=== PATIENT | female | born 1945 | race Caucasian/White ===

== ENCOUNTER → 2024-05-15 | Outpatient (CLI) | payer MEDICARE, SELFPAY ==
--- NOTE | 2024-05-15 08:00 | CDU_ITS ---
Reason For Study: Retinal Ischemia Rt. Velocities/BP Lt. Velocities/BP Prox CCA 57.9/7.8 cm/sec. Prox CCA 75.3/16.3 cm/sec. Mid CCA 60.7/9.7 cm/sec. Mid CCA 63.0/17.6 cm/sec. Dist CCA 64.5/8.8 cm/sec. Dist CCA 55.6/11.4 cm/sec. Prox ICA 42.2/15.9 cm/sec. Prox ICA 43.9/14.2 cm/sec. Mid ICA 60.6/16.5 cm/sec. Mid ICA 56.1/21.2 cm/sec. Dist ICA 63.0/20.0 cm/sec. Dist ICA 53.8/18.5 cm/sec. Rt. ICA/CCA = 1.0. Lt. ICA/CCA = 0.9. Prox ECA 54.1/6.0 cm/sec. Prox ECA 87.6/9.0 cm/sec. Rt. Vert. 47.0/9.0 cm/sec. Lt. Vert. 42.1/13.3 cm/sec. Right Extracranial There is heterogeneous, smooth atherosclerotic plaque noted in the right common carotid artery. There is homogeneous, smooth atherosclerotic plaque noted in the right internal carotid artery. There is heterogeneous, irregular atherosclerotic plaque noted in the right external carotid artery. Antegrade flow is noted in the right vertebral artery. Left Extracranial There is homogeneous, smooth atherosclerotic plaque noted in the left common carotid artery. There is homogeneous, smooth atherosclerotic plaque noted in the left internal carotid artery. There is heterogeneous, irregular atherosclerotic plaque noted in the left external carotid artery. Antegrade flow is noted in the left vertebral artery. Procedure Carotid Duplex [id number]. This is a Carotid Duplex examination using B-mode, color flow and specral Doppler. Exam performed in department. VL/Carotid Duplex Ultrasound Interpretation Summary Mild (<50%) stenosis right extracranial internal carotid. Mild (<50%) stenosis left extracranial internal carotid. Patent and antegrade vertebrals bilaterally. Ordering Physician: Dre Billingsley Referring Physician: Serena King M.D. Performed By: Nathalia Alan RVT and Student
== END | disposition home or self-care (01) ==
PROVIDERS: Referring Provider Ophthalmology; Visit Provider Ophthalmology
DX: H35.82 Retinal ischemia (principal)
CPT/HCPCS: 93880

== ENCOUNTER → 2024-08-29 | Outpatient (CLI) | payer MEDICARE, SELFPAY ==
--- NOTE | 2024-08-29 11:14 | RAD_ITS ---
PROCEDURE: 08/29/2024 REASON FOR EXAM: KNEE PAIN TECHNIQUE: 4 view(s) of the left knee COMPARISON: None. FINDINGS: Moderate narrowing seen within the medial compartment of the left knee with near [id number] contact. Subchondral sclerosis is seen. Mild narrowing seen within the lateral compartment. Osseous structures are in anatomic alignment. No fracture or dislocation is seen. No suprapatellar joint effusion. RAD/Knee 4 or More Views IMPRESSION: Left knee osteoarthritis, worse within the medial compartment. No fracture or dislocation. No joint effusion. Reading Location: [facility]
== END | disposition home or self-care (01) ==
LOC: MTRAD 11:12
PROVIDERS: PCP Family Medicine
DX: M25.562 Pain in left knee (principal)
CPT/HCPCS: 73564

== ENCOUNTER → 2025-01-04 | Outpatient (CLI) | payer MEDICARE, SELFPAY ==
--- NOTE | 2025-01-04 10:13 | RAD_ITS ---
PROCEDURE: CERV SPINE 4 OR 5 VIEWS 01/04/2025 REASON FOR EXAM: NECK PAIN TECHNIQUE: [facility] Procedure: CERV SPINE 4 OR 5 VIEWS COMPARISON: None. FINDINGS: There is no evidence of fracture or subluxation. There is loss of the normal cervical lordosis. There is degenerative disc disease C4-5, C5-6 and C6-7 with narrowing of the intervertebral disc spaces and marginal osteophytes. There is multilevel facet arthropathy. There is degenerative grade 1 anterolisthesis of C3 on C4. The perivertebral soft tissues are normal. RAD/Cerv Spine 4 or 5 Views IMPRESSION: 1. Multilevel degenerative disc disease with cervical spasm. 2. Degenerative anterolisthesis, C3 on C4. Reading Location: [place] [id number]
--- NOTE | 2025-01-04 10:13 | RAD_ITS ---
PROCEDURE: LUMBAR SPINE 2 OR 3 VIEWS 01/04/2025 REASON FOR EXAM: LOW BACK PAIN TECHNIQUE: Procedure Code: [facility]SPLL Modality: DX Procedure: LUMBAR SPINE 2 OR 3 VIEWS COMPARISON: NONE. FINDINGS: BONES: Five exw-uzs-sebnwui lumbar vertebral bodies. Mild anterior wedge compression deformity of the L1 vertebral body. No focal osseous lesion. Anatomic spinal alignment. DISC/DEGENERATIVE CHANGES: Disc spaces are preserved. SOFT TISSUES: Moderate colonic stool. RAD/Lumbar Spine 2 or 3 Views IMPRESSION: L1 vertebral body compression deformity, age indeterminate. If clinically lefty cated, a follow-up CT or MRI is suggested to further evaluate. Reading Location: [id number]
[2025-01-04 12:26] LABS: Hematocrit 47.1 % (37-47); Hemoglobin 16.3 g/dL (12.0-15.0); Immature Granulocytes Count 0.020 X10^3/uL (0.0-0.0); Mean Corp Hgb Conc 34.6 g/dL (32-36); Mean Corpuscular Volume 96.7 fL (81-99); Mean Platelet Vol. 11.3 fl (6.2-12.0); NRBC Flagged by Analyzer 0 % (0-5); POSITIVE COUNT YES; RBC Distribution Width CV 12.2 % (11.6-14.6); RBC Distribution Width SD 43.6 fl (35.1-43.9); Red Blood Count 4.87 M/mm3 (4.2-5.4); White Blood Count 8.3 K/mm3 (4.4-11.0)
[2025-01-04 13:24] LABS: Cholesterol 196 mg/dL (<=200); Ferritin 207 ng/mL (22-378); Low Density Lipoprotein Calc. 102 mg/dL; Triglycerides 138 mg/dL; Very Low Density Lipoprotein 28 mg/dL (5-40); Vitamin D,25 Hydroxy 65.6 ng/mL (30-100); cholesterol:hdl ratio screen 2.96
[2025-01-04 13:39] LABS: Iron 171 ug/dL (50-170)
[2025-01-04 13:43] LABS: AST(SGOT) 30 U/L (<=31); Alanine Aminotransfer ALT/SGPT 20 U/L (<=34); Albumin, Serum 4.3 g/dL (3.4-4.8); Alkaline Phosphatase 81 U/L (35-104); Anion Gap 14 (5-15); BUN 12 mg/dL (4-19); BUN/Creat Ratio 12.2 RATIO (10-20); Calcium,Total 10.3 mg/dL (7.6-11.0); Carbon Dioxide 23.7 mmol/L (21.0-32.0); Chloride 103 mmol/L (98-108); Globulin 2.6 g/dL (2.2-4.2); Glucose 92 mg/dL (70-99); Potassium 4.3 mmol/L (3.3-5.1)
[2025-01-04 14:02] LABS: Differential Indicated SCAN CRITERIA MET
== END | disposition home or self-care (01) ==
LOC: MTRAD 10:13
PROVIDERS: PCP Family Medicine; Referring Provider Family Medicine; Visit Provider Family Medicine
DX: D80.1 Nonfamilial hypogammaglobulinemia (principal); N18.30 Chronic kidney disease, stage 3 unspecified; Z13.220 Encounter for screening for lipoid disorders; E83.110 Hereditary hemochromatosis; M81.0 Age-related osteoporosis without current pathological fracture
CPT/HCPCS: 36415; 72050; 72100; 80053; 80061; 82306; 82728; 83540; 85025

== ENCOUNTER → 2025-01-18 | Outpatient (CLI) | payer MEDICARE, SELFPAY ==
--- OUTSIDE RECORDS SUMMARY | 2025-01-18 07:12 | XMS RPT_ITS | CCD ---
Author Organization [facility] Care Team Providers Care Director Search Marketing Strategies Name Role Phone Town Doctor, Out of Primary Care Provider José Miguel Billingsley MD, Dr. Erickson Attending Provider Analilia PINA, Dr. Erickson Referring Provider Hira PINA, Dr. Tavarez Attending Provider Hugo PINA, Jelena Primary Care Provider Brandon OBSTETRICIAN/GYNECOLOGIST-C, Sera Attending Provider [phone] Brandon OBSTETRICIAN/GYNECOLOGIST-C, Sera Referring Provider Will Cheng Attending Unavailable Will Cheng Referring Unavailable Hugo, Chalon Primary Care Unavailable Hugo, Jelena Attending Unavailable Hugo, Chalon Referring Unavailable Hugo, Chalon Primary Care Unavailable Hugo, Chalon Attending Unavailable Hugo, Chalon Referring Unavailable Hugo, Chalon Primary Care Unavailable Chenevey, Dre Referring Unavailable Town Doctor, Out of Primary Care Unavailable Corby Iniguez Attending Unavailable Hugo, Chalon Primary Care Unavailable Brandon OBSTETRICIAN/GYNECOLOGIST, Sera Attending Unavailable Brandon OBSTETRICIAN/GYNECOLOGIST, Sera Referring Unavailable Chenevey, Dre Attending Unavailable Chenevey, Dre Referring Unavailable Town Doctor, Out of Primary Care Unavailable Hugo, Chalon Referring Unavailable Hugo, Chalon Primary Care Unavailable Lisa Hummel Attending Unavailable Will Cheng Attending Unavailable Hugo, Chalon Referring Unavailable Hugo, Chalon Primary Care Unavailable Allergies Allergy Classification Reported Allergen(s) Allergy Type Date of Onset Reaction(s) Facility (1 source) Penicillin Drug Allergy 01-15-2025 [facility] Repository Medications Current Medications Medication Drug Class(es) Dates Sig (Normalized) Sig (Original) FLUoxetine 20 mg oral capsule (1 source) Serotonin Reuptake Inhibitor Start: 12-01-2014 take 1 capsule by mouth once daily Fluoxetine 20 MG capsule Active 20 mg PO DAILY December 01, 2014 12:00am Problems Problem Classification Problem Date Documented Da te Episodic/Chronic Immunity disorders (1 source) Nonfamilial hypogammaglobulinem ia; Translations: [Nonfamilial hypogammaglobulinem ia] Onset: 01-12-2025 Chronic Osteoporosis (1 source) Age-related osteoporosis without current pathological fracture; Translations: [Age-related osteoporosis without current pathological fracture] Onset: 01-15-2025 Chronic Other non-traumatic joint disorders (2 sources) Pain in left knee; Translations: [Pain in left knee] Onset: 09-05-2024 Episodic Retinal detachments; defects; vascular occlusion; and retinopathy (1 source) Retinal ischemia; Translations: [Retinal ischemia] Onset: 06-02-2024 Chronic Results Test Name Value Interpretation Reference Range Facil ity Orthopedic Visit Reporton Orthopedic Visit Report [facility] [address] [place] [address] OFFICE VISIT Date of Service: 01/15/25 MR#: [id number] Acct: [id number] Name: BRYCE GENTILE Rep #: [id number] : 1945 Provider: Dr. Will moreno DO Age/Sex: 79/F Location: [facility] Status: Signed Intake Vital Signs 12/01/14 13:55 01/15/25 08:20 Height 5 ft 3 in 5 ft 3 in Weight: 191 lb 6 oz BMI 33.9 Intake Visit Reasons: LEFT KNEE Accompanied by: Is patient in pain?: Yes Pain scale (1-10): 5 Allergies penicillin Allergy (Verified 01/15/25 08:22) Rash Medications ???Medication ???Instructions ???Recorded ???Confirmed ???Type alendronate 35 mg tablet 35 mg PO QWEEK 01/15/25 01/15/25 H istory escitalopram oxalate 20 mg tablet 20 mg PO QDAY 01/15/25 01/15/25 H istory Have you fallen in the past year?: No PFSH Surgical History (Updated 01/15/25 @ 08:24 by Erin Ch) History of nasal surgery History of tubal ligation History of cataract removal with insertion of prosthetic lens History of appendectomy History of right knee joint replacement Social History (Updated 01/15/25 @ 08:25 by Erin Ch) Smoking Status: Never smoker alcohol intake: current alcohol intake frequency: a few times a week HPI LEFT KNEE Details: This documentation accurately reflects the service provided and the decisions made by me, Dr. Will Cheng, DO 01/15/25 0749. Part of today???s visit was documented by Regina CRUZ, acting as scribe. BRYCE GENTILE is a 79 year old F new patient here today for left knee pain that she has been having since August. She did get a steroid injection from her PCP in October that gave her some minimal relief for a few weeks. She denies any known injury and denies any previous surgery to this knee. Her pain is anterior medial. When the pain initially started she woke up with her right leg on the left leg then later on that morning she went to walk down some steps and felt a painful pop in the knee. She feels that their is no stability in the knee and has to be very mindful of how she walks. She denies painful mechanical symptoms since. She does get shooting pain through the anterior medial compartment. At night if she tried to lift up her leg she gets increased pain in the knee. She did have xrays of the knee on 08/29/24. She does take Advil for the pain as needed. She denies doing PT. She does have 2 knee braces at home but neither of them help with the pain or stability. Walking on uneven ground she feels very unstable on the knee. she states it feels like when she tore her meniscus in her other knee prior to her knee replacement. Ortho Exam General General: Yes no acute distress and Yes well groomed Neurologic: Yes alert and Yes oriented x3 Psychologic: Yes reasonable and appropriate Left Knee Knee ROM: Yes ROM-Extension -20 to 0 (-8) and Yes ROM-Flexion 0-140 (108) Examination: Yes med jt line tenderness, Yes Lat jt line tenderness and No TTP Pes Anserine Stability: NML: Anterior Drawer, NML: Posterior Drawer, NML: Valgus 30 and NML: Varus 30 Patella Grind: Yes KNEE: no effusion medial click with lateral gillian pain with medial gillian Supplemental Info 08/29/2024 x-ray left knee: Degenerative changes moderate medial and patellofemoral with spurring and joint space narrowing Coding Level of Care Code Off vis,new,level 3 Diagnoses Other instability, left knee M25.362 Primary osteoarthritis of left knee M17.12 Osteoarthritis type: primary Assessment and Plan Assessment and Plan (1) Other instability, left knee: Status: Acute (2) Left knee DJD: Status: Acute Qualifiers: Osteoarthritis type: primary Qualified Code(s): M17.12 - Unilateral primary osteoarthritis, left knee Orders: Orders Lower Ext Joint Only (Routine) Today M25.562 - Pain in left knee Plan Patient is here today for left knee pain. I did review xrays from August today with patient and advised her that she does have some mild arthritis with some spurring and likely has a degenerative tear of her medial meniscus. I spoke with patient that for this we typically treat it by anti-inflammatories and a steroid injection. Another option would be to get an MRI then decide if we would want to go in arthroscopically or talk about knee replacement. patient wishes to proceed with an MRI. Follow up after MRI or sooner if pain, swelling, numbness or associated symptoms, or concerns develop. All questions answered. Patient in agreement of plan. Clinical Quality Measures Falls Risk Screening/Assistive Devices Have you fallen in the past year?: No 01/15/25 0953 Date Will Lynne Signature: Date (more content not included)... Normal [facility] CBC W/Diff, Automatedon 12-25 PLT EST ADEQUATE Normal ADEQ [facility] Comment on above: Performed By: #### L 500.4100, L503.6550, L503.6150, L506.1001, L100.0100, L500.4050 #### [facility] [address] [place], [place], [address] Cerv Spine 4 or 5 Viewson Cerv Spine 4 or 5 Views [facility] Imaging Services [address] [place], [place] [address] Cerv Spine 4 or 5 Views MR#: [id number] Acct: [id number] Name: BRYCE GENTILE Rep #: [id number] : 1945 F 79 From: Luis Sanders MD PCP: Dr. Jelena Arias MD Status: REG CLI Study: Cerv Spine 4 or 5 Views Date of Exam: 01/04/25 Exam# [id number] Ordering Dr: Jelena Arias MD PROCEDURE: CERV SPINE 4 OR 5 VIEWS 01/04/2025 REASON FOR EXAM: NECK PAIN TECHNIQUE: Procedure Code: RADSPC Modality: DX Procedure: CERV SPINE 4 OR 5 VIEWS COMPARISON: None. FINDINGS: There is no evidence of fracture or subluxation. There is loss of the normal cervical lordosis. There is degenerative disc disease C4-5, C5-6 and C6-7 with narrowing of the intervertebral disc spaces and marginal osteophytes. There is multilevel facet arthropathy. There is degenerative grade 1 anterolisthesis of C3 on C4. The perivertebral soft tissues are normal. RAD/Cerv Spine 4 or 5 Views IMPRESSION: 1. Multilevel degenerative disc disease with cervical spasm. 2. Degenerative anterolisthesis, C3 on C4. Reading Location: [place] [address] CC: Dr. Jelena Arias MD Project Production Engineer: Signed Normal [facility] Comprehensive Metabolic Prof ilon 01-04-2025 Albumin [Mass/Vol] 4.3 g/dL Normal 3.4-4.8 [facility] Comment on above: Performed By: #### L 500.4100, L503.6550, L503.6150, L506.1001, L100.0100, L500.4050 #### [facility] [address] [place], [address] Albumin/Globulin [Mass ratio] 1.6 {ratio} Normal 0.9-2.4 [facility] Comment on above: Performed By: #### L 500.4100, L503.6550, L503.6150, L506.1001, L100.0100, L500.4050 #### [facility] [address] [place], [address] ALK PHOS 81 U/L Normal 35-104 [facility] Comment on above: Performed By: #### L 500.4100, L503.6550, L503.6150, L506.1001, L100.0100, L500.4050 #### [facility] [address] [place], [address] ALT [Catalytic activity/Vol] 20 U/L Normal <=34 [facility] Comment on above: Performed By: #### L 500.4100, L503.6550, L503.6150, L506.1001, L100.0100, L500.4050 #### [facility] [address] [place], [address] AST [Catalytic activity/Vol] 30 U/L Normal <=31 [facility] Comment on above: Result Comment: Hemo lysis present, Results??could be affected. ?? Performed By: #### L 500.4100, L503.6550, L503.6150, L506.1001, L100.0100, L500.4050 #### [facility] [address] [place], [address] Bilirubin [Mass/Vol] 0.82 mg/dL Normal 0.00-1.30 [facility] Comment on above: Performed By: #### L 500.4100, L503.6550, L503.6150, L506.1001, L100.0100, L500.4050 #### [facility] [address] [place], [address] BUN/CRE 12.2 RATIO Normal 10-20 [facility] Comment on above: Performed By: #### L 500.4100, L503.6550, L503.6150, L506.1001, L100.0100, L500.4050 #### [facility] [address] [place], [address] Calcium [Mass/Vol] 10.3 mg/dL Normal 7.6-11.0 [facility] Comment on above: Performed By: #### L 500.4100, L503.6550, L503.6150, L506.1001, L100.0100, L500.4050 #### [facility] [address] [place], [address] Chloride [Moles/Vol] 103 mmol/L Normal 98-108 [facility] Comment on above: Performed By: #### L 500.4100, L503.6550, L503.6150, L506.1001, L100.0100, L500.4050 #### [facility] [address] [place], [address] CO2 [Moles/Vol] 23.7 mmol/L Normal 21.0-32.0 [facility] Comment on above: Performed By: #### L 500.4100, L503.6550, L503.6150, L506.1001, L100.0100, L500.4050 #### [facility] [address] [place], [address] Creatinine [Mass/Vol] 1.00 mg/dL Normal 0.70-1.20 [facility] Comment on above: Performed By: #### L 500.4100, L503.6550, L503.6150, L506.1001, L100.0100, L500.4050 #### [facility] [address] [place], [address] GAP 14 Normal 5-15 [facility] Comment on above: Performed By: #### L 500.4100, L503.6550, L503.6150, L506.1001, L100.0100, L500.4050 #### [facility] [address] [place], [address] GFR/1.73 sq M.predicted among non-blacks MDRD (S/P/Bld) [Vol rate/Area] 58 mL/min/{1.73_m2} Low >60 [facility] Comment on above: Result Comment: mL/m in/1.73m2 CKD-EPI Creatinine Equation (2020) Performed By: #### L 500.4100, L503.6550, L503.6150, L506.1001, L100.0100, L500.4050 #### [facility] [address] [place], [address] Globulin (S) [Mass/Vol] 2.6 g/dL Normal 2.2-4.2 [facility] Comment on above: Performed By: #### L 500.4100, L503.6550, L503.6150, L506.1001, L100.0100, L500.4050 #### [facility] [address] [place], [address] Glucose [Mass/Vol] 92 mg/dL Normal 70-99 [facility] Comment on above: Performed By: #### L 500.4100, L503.6550, L503.6150, L506.1001, L100.0100, L500.4050 #### [facility] [address] [place], [address] Potassium [Moles/Vol] 4.3 mmol/L Normal 3.3-5.1 [facility] Comment on above: Result Comment: Hemo lysis present, Results??could be affected. ?? Performed By: #### L 500.4100, L503.6550, L503.6150, L506.1001, L100.0100, L500.4050 #### [facility] [address] [place], [address] Sodium [Moles/Vol] 140 mmol/L Normal 133-145 [facility] Comment on above: Performed By: #### L 500.4100, L503.6550, L503.6150, L506.1001, L100.0100, L500.4050 #### [facility] [address] [place], [address] T PROT 6.9 g/dL Normal 5.9-8.4 [facility] Comment on above: Performed By: #### L 500.4100, L503.6550, L503.6150, L506.1001, L100.0100, L500.4050 #### [facility] [address] [place], [address] Urea nitrogen [Mass/Vol] 12 mg/dL Normal 4-19 [facility] Comment on above: Performed By: #### L 500.4100, L503.6550, L503.6150, L506.1001, L100.0100, L500.4050 #### [facility] [address] [place], [address] Ferritinon 01-04-2025 Ferritin [Mass/Vol] 207 ng/mL Normal 22-378 [facility] Comment on above: Performed By: #### L 500.4100, L503.6550, L503.6150, L506.1001, L100.0100, L500.4050 #### [facility] [address] [place], [address] Ironon 01-04-2025 Iron [Mass/Vol] 171 ug/dL High 50-170 [facility] Comment on above: Performed By: #### L 500.4100, L503.6550, L503.6150, L506.1001, L100.0100, L500.4050 #### [facility] [address] [place], [address] Lipid Profileon 01-04-2025 CHOL:HDL 2.96 Normal [facility] Comment on above: Performed By: #### L 500.4100, L503.6550, L503.6150, L506.1001, L100.0100, L500.4050 #### [facility] [address] [place], [address] Cholesterol [Mass/Vol] 196 mg/dL Normal <=200 [facility] Comment on above: Result Comment: Chol esterol level, Desirable <200 mg/dL Borderline high cholesterol 200-239 mg/dL High cholesterol >=240 mg/dL Recommendations of the NCEP Adult Treatment Panel for the following risk-cutoff thresholds for the [place] population. Performed By: #### L 500.4100, L503.6550, L503.6150, L506.1001, L100.0100, L500.4050 #### [facility] [address] [place], [address] Cholesterol in HDL [Mass/Vol] 66 mg/dL Normal [facility] Comment on above: Result Comment: Angie onal Cholesterol Education Program (NCEP) guidelines: <40 mg/dL: Low HDL-cholesterol (major risk factor for CHD) >= 60 mg/dL: High HDL-cholesterol (negative risk factor for CHD) HDL-cholesterol is affected by a number of factors, e.g. smoking, exercise, hormones, sex and age. Performed By: #### L 500.4100, L503.6550, L503.6150, L506.1001, L100.0100, L500.4050 #### [facility] [address] [place], [address] Cholesterol in LDL [Mass/Vol] 102 mg/dL Normal [facility] Comment on above: Result Comment: Bord qzheoc=926-006 mg/dL Higher Xkxq=631 mg/dL or greater Friedwald Equation for LDL-C Performed By: #### L 500.4100, L503.6550, L503.6150, L506.1001, L100.0100, L500.4050 #### [facility] [address] [place], [address] Cholesterol in VLDL [Mass/Vol] 28 mg/dL Normal 5-40 [facility] Comment on above: Performed By: #### L 500.4100, L503.6550, L503.6150, L506.1001, L100.0100, L500.4050 #### [facility] [address] [place], [address] Triglyceride [Mass/Vol] 138 mg/dL Normal [facility] Comment on above: Result Comment: The drugs N-Acetylcysteine and Metamizole may falsely depress this assay. Normal range: <150 mg/dL Borderline High: 150-199 mg/dL High: 200-499 mg/dL Very High: >500 mg/dL Performed By: #### L 500.4100, L503.6550, L503.6150, L506.1001, L100.0100, L500.4050 #### [facility] [address] [place], [address] Lumbar Spine 2 or 3 Viewson 01-04-2025 Lumbar Spine 2 or 3 Views [facility] Imaging Services [address] [place] [address] Lumbar Spine 2 or 3 Views MR#: [id number] Acct: [id number] Name: BRYCE GENTILE Rep #: [id number] : 1945 F 79 From: Medina Hawkins MD PCP: Dr. Jelena Arias MD Status: REG CLI Study: Lumbar Spine 2 or 3 Views Date of Exam: Exam# [id number] Ordering Dr: Jelena Arias MD PROCEDURE: LUMBAR SPINE 2 OR 3 VIEWS 01/04/2025 REASON FOR EXAM: LOW BACK PAIN TECHNIQUE: Procedure Code: RADSPLL Modality: DX Procedure: LUMBAR SPINE 2 OR 3 VIEWS COMPARISON: NONE. FINDINGS: BONES: Five eeb-ccr-jnpxedh lumbar vertebral bodies. Mild anterior wedge compression deformity of the L1 vertebral body. No focal osseous lesion. Anatomic spinal alignment. DISC/DEGENERATIVE CHANGES: Disc spaces are preserved. SOFT TISSUES: Moderate colonic stool. RAD/Lumbar Spine 2 or 3 Views IMPRESSION: L1 vertebral body compression deformity, age indeterminate. If clinically indicated, a follow-up CT or MRI is suggested to further evaluate. Reading Location: [facility] CC: Dr. Jelena Arias MD Project Production Engineer: Signed Normal [facility] Vitamin D,25 Hydroxyon 01-04 Vitamin D 25-OH 65.6 ng/mL Normal 30-100 [facility] Comment on above: Result Comment: Ruthann min D Status Deficiency: <20 ng/mL (50nmol/L) Insufficiency: 20-30 ng/mL (50-75 nmol/L) Sufficiency: 30-100 ng/mL (75-250 nmol/L) Toxicity: >100 ng/mL (>250 nmol/L) Performed By: #### L 500.4100, L503.6550, L503.6150, L506.1001, L100.0100, L500.4050 #### [facility] [address] [facility] [place], [address] Knee 4 or More Viewson 08-29 Knee 4 or More Views [facility] Imaging Services [address] [place] [address] Knee 4 or More Views MR#: [id number] Acct: [id number] Name: BRYCE GENTILE Rep #: [id number] : 1945 F 78 From: Manuel Alegria i, MD PCP: Dr. Jelena Arias MD Status: REG CLI Study: Knee 4 or More Views Date of Exam: 08/29/24 Exam# [id number] Ordering Dr: Sera Taylor NP OBSTETRICIAN/GYNECOLOGIST -C PROCEDURE: 08/29/2024 REASON FOR EXAM: KNEE PAIN TECHNIQUE: 4 view(s) of the left knee COMPARISON: None. FINDINGS: Moderate narrowing seen within the medial compartment of the left knee with near tgzn-id-ufrw contact. Subchondral sclerosis is seen. Mild narrowing seen within the lateral compartment. Osseous structures are in anatomic alignment. No fracture or dislocation is seen. No suprapatellar joint effusion. RAD/Knee 4 or More Views IMPRESSION: Left knee osteoarthritis, worse within the medial compartment. No fracture or dislocation. No joint effusion. Reading Location: [facility] CC: Sera Taylor; Dr. Jelena Arias MD Project Production Engineer: Signed Normal [facility] Carotid Duplex Ultrasoundon 05-15-2024 Carotid Duplex Ultrasound [facility] [address] [place] [address] Carotid Duplex Ultrasound 05/15/24 0803 MR#: [id number] Acct: [id number] Name: BRYCE GENTILE Rep #: [id number] : 1945 78 From: Corby Iniguez MD Attending Dr: Dr. Dre Billingsley MD Status: REG CLI Ordering Dr: Dre Billingsley MD Date: 05/15/24 Location: [facility] Sex: F C Admitted: Reason For Study: Retinal Ischemia Rt. Velocities/BP Lt. Velocities/BP Prox CCA 57.9/7.8 cm/sec. Prox CCA 75.3/16.3 cm/sec. Mid CCA 60.7/9.7 cm/sec. Mid CCA 63.0/17.6 cm/sec. Dist CCA 64.5/8.8 cm/sec. Dist CCA 55.6/11.4 cm/sec. Prox ICA 42.2/15.9 cm/sec. Prox ICA 43.9/14.2 cm/sec. Mid ICA 60.6/16.5 cm/sec. Mid ICA 56.1/21.2 cm/sec. Dist ICA 63.0/20.0 cm/sec. Dist ICA 53.8/18.5 cm/sec. Rt. ICA/CCA = 1.0. Lt. ICA/CCA = 0.9. Prox ECA 54.1/6.0 cm/sec. Prox ECA 87.6/9.0 cm/sec. Rt. Vert. 47.0/9.0 cm/sec. Lt. Vert. 42.1/13.3 cm/sec. Right Extracranial There is heterogeneous, smooth atherosclerotic plaque noted in the right common carotid artery. There is homogeneous, smooth atherosclerotic plaque noted in the right internal carotid artery. There is heterogeneous, irregular atherosclerotic plaque noted in the right external carotid artery. Antegrade flow is noted in the right vertebral artery. Left Extracranial There is homogeneous, smooth atherosclerotic plaque noted in the left common carotid artery. There is homogeneous, smooth atherosclerotic plaque noted in the left internal carotid artery. There is heterogeneous, irregular atherosclerotic plaque noted in the left external carotid artery. Antegrade flow is noted in the left vertebral artery. Procedure Carotid Duplex 24663. This is a Carotid Duplex examination using B-mode, color flow and specral Doppler. Exam performed in department. VL/Carotid Duplex Ultrasound Interpretation Summary Mild (<50%) stenosis right extracranial internal carotid. Mild (<50%) stenosis left extracranial internal carotid. Patent and antegrade vertebrals bilaterally. Ordering Physician: Dre Billingsley Referring Physician: Serena King M.D. Performed By: Nathalia Alan RVT and Student 05/15/24 1244 Date Corby Iniguez MD CC: Dr. Dre Billingsley MD Date Dictated: 05/15/24 0803 Date Transcribed: 05/15/24 124 Project Production Engineer: Heather Brady [facility] Encounters Encounter Date Encounter Type Care Provider Facility Start: 01-25-2025 [facility] Facility :[facility] Start: 01-18-2025 ambulatory Jel[facility] Start: 01-15-2025 End: 01-15-2025 ambulatory [facility] Facility:[facility] Start: 01-04-2025 End: 01-04-2025 ambulatory [facility] Facility:[facility] Start: 08-29-2024 End: 08-29-2024 ambulatory Out of Town Doctor [facility] Work Phone: Start: 08-29-2024 End: 08-29-2024 Patient encounter procedure Sera Taylor OBSTETRICIAN/GYNECOLOGISTOrionC -Radiology, [place] Work Phone: Start: 08-29-2024 End: 08-29-[facility] Start: 05-15-2024 ambulatory Dre Arelylilibethtre Facility: [facility] Start: 05-15-2024 Non-patient / Non-visit Dr. Corby grady MD -[facility] Start: 05-15-2024 End: 05-15-[address] Dre Billingsley MD -Cardiovascular Services Work Phone: Start: 05-15-2024 End: 05-15-2024 ambulatory Dre Billingsley Facility:[facility] Procedures Date Procedure Procedure Detail Performing Clinician Start: 08-29-2024 X-ray of knee, four or more views Out Town Doctor Payers Date Payer Category Payer Private Health Insurance [facility] [id number] 2024 Self-pay 2002 Unknown ANTHEM OUT OF STATE [id number] Medicare MEDICARE PART A B [id number] Unknown ANTHEM [id number] Unknown [id number] Unknown [id number] Unknown [id number] Unknown [id number] Unknown [id number] Unknown [id number] Unknown [id number] Unknown [id number] Social History Date Type Detail Facility Start: 12-01-2014 [facility] Start: 1945 Sex Assigned At Female [facility] Radiology Diagnostic study note 08-30-2024 Note Date & Type Note Facility 08-30-2024 Radiology Diagnostic study note [facility] Imaging Services [address] [place] [id number] Knee 4 or More Views MR#: [id number] Acct: [id number] Name: BRYCE GENTILE Rep #: [id number] : 1945 F 78 From: León Cui MD PCP: Dr. Jelena Arias MD Status: REG CL I Study:Knee 4 or More Views Date of Exam: 08/29/24 Exam# [id number] Ordering Dr: Sera Taylor NP OBSTETRICIAN/GYNECOLOGIST-C PROCEDURE: 08/29/2024 REASON FOR EXAM: KNEE PAIN TECHNIQUE: 4 view(s) of the left knee COMPARISON: None. FINDINGS: Moderate narrowing seen within the medial compartment of the left knee with aafhwllk-mw-crpr contact. Subchondral sclerosis is seen. Mild narrowing seen within the lateral compartment. Osseous structures are in anatomic alignment. No fracture or dislocation is seen. No suprapatellar joint effusion. RAD/Knee 4 or More Views IMPRESSION: Left knee osteoarthritis, worse within the medial compartment. No fracture or dislocation. No joint effusion. Reading Location: [facility] CC: Sera Taylor; Dr. Jelena Arias MD ~ Project Production Engineer: Signed [facility] Evaluation note Note Date & Type Note Facility Evaluation note No assessment information availa ble [facility] Work Phone: Reason for referral (narrative) Note Date & Type Note Facility Reason for referral (narrative) No reason for referral information available [facility] Work Phone: Chief Complaint and Reason for Visit Chief Complaint Admit Date Retinal ischemia May 15, 2024 7 :56am LEFT KNEE PAIN August 29, 2024 11:11a m Summary Purpose Family History No Family History Records Found Advance Directives No Advanced Directives Records Found Additional Source Comments Care Teams (unrecognized sec tion and content) Team Status: Active Member Role Status Dates Out of [facility] Doctor Family Provider Active Jelena Arias MD Primary Care Provider Active Team Status: Inactive Member Role Status Dates Out [facility] Doctor Primary Care Provider Active Start: May 15, 2024 End: May 15, 2024 Dr. Dre Billingsley MD Attending Provider Active Start: May 15, 2024 End: May 15, 2024 Dr. Dre Billingsley MD Referring Provider Active Start: May 15, 2024 End: May 15, 2024 Team Status: Active Member Role Status Dates Out [facility] Doctor Primary Care Provider Active Start: May 15, 2024 Dr. Corby Iniguez MD Attending Provider Active S tart: May 15, 2024 Dr. Dre Billingsley MD Referring Provider Active Start: May 15, 2024 Team Status: Inactive Member Role Status Dates Jelena Arias MD Primary Care Provider Active St art: August 29, 2024 End: August 29, 2024 TANA Claire NP Attending Provider Active Start: August 29, 2024 End: August 29, 2024 TANA Claire NP Referring Provider Active Start: August 29, 2024 End: August 29, 2024 Goals (unrecognized section and content) Goals may be documented in a n alternate section INFORMATION SOURCE (unrecogn ized section and content) DATE CREATED AUTHOR 01/17/2025 [facility] FOR RECORDS PERTAINING TO PATIENTS WHO ARE OR HAVE BEEN ENROLLED IN A CHEMICAL DEPENDENCY/SUBSTANCEABUSE PROGRAM, SOME INFORMATION MAY BE OMITTED. This clinical summary was aggregated from multiple sources. Caution should be exercised in using it in the provision of clinical care. This summary normalizes information from multiple sources, and as a consequence, information in this document may materially change the coding, format and clinical context of patient data. In addition, data may be omitted in some cases. CLINICAL DECISIONS SHOULD BE BASED ON THE PRIMARY CLINICAL RECORDS. [employer] [facility]. provides no warranty or guarantee of the accuracy or completeness of information in this document.
--- NOTE | 2025-01-18 07:18 | BD_ITS ---
PROCEDURE: DEXA BONE DENSITY STUDY 01/18/2025 REASON FOR EXAM: F, age 79 y/o . TECHNIQUE: Procedure Code: BDDBD Modality: DX Procedure: DEXA BONE DENSITY STUDY COMPARISON: None. FINDINGS: BMD and T-SCORES Lumbar spine: 0.981 g/cm2, T-score -0.6 Levels: L1 through L4 Left femoral neck: 0.644 g/cm2, T-score -1.8 Left total hip: 0.808 g/cm2, T-score -1.1 Right femoral neck: 0.698 g/cm2, T-score -1.4 Right total hip: 0.843 g/cm2, T-score -0.8 The World Health Organization has defined the following categories based on bone density: Normal bone density: T-score equal to or greater than -1.0 Osteopenia: T-score between -1.0 and -2.5 Osteoporosis: T-score equal to or less than -2.5 FRAX (or Comparable) Fracture Risk Assessment: 10 Year Probability of Fracture: Major Osteoporotic Fracture: 11% Hip Fracture: 2.2% (Note: FRAX is not to be reported in setting of normal range bone density, osteoporosis on DEXA, known history of osteoporosis, prior osteoporotic hip or vertebral fracture, or for any patient undergoing pharmacological treatment for bone loss.) The National Osteoporosis Foundation (NOF) recommends pharmacological treatment for patients with a FRAX 10-year risk of 3% or higher for a hip fracture, or 20% or higher for a major osteoporotic fracture, to prevent osteoporosis and reduce fracture risk. The patient does not meet the pharmacological treatment recommendations for prevention of osteoporosis. BD/Dexa Bone Density Study IMPRESSION: There is osteopenia of both femoral necks and normal bone mineral density of th e lumbar spine. Recommend follow-up as clinically warranted. Reading Location: [place] [address]
== END | disposition home or self-care (01) ==
LOC: OPBD 07:10
PROVIDERS: PCP Family Medicine; Referring Provider Family Medicine; Visit Provider Family Medicine
DX: M81.0 Age-related osteoporosis without current pathological fracture (principal)
CPT/HCPCS: 77080

== ENCOUNTER → 2025-01-25 | Outpatient (CLI) | payer MEDICARE, SELFPAY ==
--- NOTE | 2025-01-25 16:12 | MRI_ITS ---
PROCEDURE: LOWER EXT JOINT ONLY (ROUTINE) 01/25/2025 REASON FOR EXAM: PAIN TECHNIQUE: Procedure Code: MRILEJ Modality: MR Procedure: LOWER EXT JOINT ONLY (ROUTINE) Multiplanar and multisequence images were obtained without IV contrast administration. COMPARISON: COMPARISON : FINDINGS: Menisci: Mild blunting and fraying of the free edge of the body of the lateral meniscus, otherwise without tear. High-grade attenuating incomplete radial tear of the far posterior horn of the medial meniscus near the root attachment, resulting in extrusion of the body, with intrasubstance degeneration Ligaments and tendons: No cruciate or collateral ligament tear. No iliotibial band abnormality. No medial or lateral patellofemoral ligament/retinaculum tear. Mild quadriceps tendinosis. Mild semimembranosus tendinosis. Mild popliteus tendinosis. Bones and soft tissues: Small effusion. Small popliteal cyst with adjacent fluid suggesting cyst leakage. Moderate prepatellar edema/bursitis. Infrapatellar plica. Well-positioned patella. Chondral thinning and fissuring and irregularity with areas to bone in the patellar apex and medial facet with mild periarticular bone edema. Chondral thinning and irregularity in the trochlea. Chondral thinning in the lateral tibial plateau. Extensive chondral thinning and irregularity, with periarticular bone edema and areas likely to bone, along both medial knee articular surfaces. Marginal osseous ridging about all three compartments of the knee and the femoral notch. MRI/Lower Ext Joint Only (Routine) IMPRESSION: Medial meniscus: High-grade attenuating incomplete radial tear of the far poste rior horn of the medial meniscus near the root attachment, resulting in extrusion of the body, with intrasubstance degeneratio n. Chondral degeneration in all three compartments. Areas to bone in the patellof emoral and likely the medial compartments. Small effusion. Moderate prepatellar edema/bursitis. Plica. Popliteal cyst a nd cyst leakage. Mild blunting and fraying of the free edge of the lateral meniscus. Mild tendinosis. Reading Location: [facility]
== END | disposition home or self-care (01) ==
LOC: MRI 16:10
PROVIDERS: PCP Family Medicine; Referring Provider Orthopaedic Surgery; Visit Provider Orthopaedic Surgery
DX: M25.562 Pain in left knee (principal)
CPT/HCPCS: 73721

== ENCOUNTER → 2025-01-31 | Outpatient (CLI) | payer MEDICARE, SELFPAY ==
--- NOTE | 2025-01-31 15:01 | MRI_ITS ---
PROCEDURE: SPINE CERVICAL (ROUTINE) 01/31/2025 REASON FOR EXAM: WORSENING BALANCE, NECK PAIN TECHNIQUE: Procedure Code: MRISP Modality: MR Procedure: SPINE CERVICAL (ROUTINE) Multiplanar and multisequence images were obtained without IV contrast administration. FINDINGS: Mild midcervical kyphosis and spondylosis. No compression fracture. Degenerative endplate changes with otherwise normal marrow signal intensity. Visualized portions of the cerebellum, cervical and upper thoracic spinal cord exhibit normal signal intensity. Small areas of increased T2 signal intensity in the xiomara. Bilateral facet arthrosis at all cervical levels. C3-4: Grade 1 anterolisthesis. Severe bilateral foraminal stenosis. C4-5: Grade 1 anterolisthesis. Broad-based disc bulge. Jikh-ww-vzmltoxz spinal stenosis and mild cord effacement. Moderately severe right and severe left foraminal stenosis. C5-6: Broad-based disc bulge. Moderate spinal stenosis and mild cord effacement. Moderately severe bilateral foraminal stenosis. C6-7: Small disc bulge. Severe right foraminal stenosis. C7-T1: Mild bilateral foraminal stenosis. T1-2: Left facet arthrosis and mild left foraminal stenosis. T2-3: Left facet arthrosis and moderate left foraminal stenosis. T3-4: Left facet arthrosis and ojhq-[id number]-yzmdhmyn left foraminal stenosis. No other significant disc bulge or herniation is identified. Remaining intervertebral foramina and spinal canal appear adequately patent. Surrounding soft tissues appear otherwise unremarkable. MRI/Spine Cervical (Routine) IMPRESSION: Mild cord effacements at C5-6. Foraminal stenoses at C3-T4. Kyphosis and spondylosis. Areas of increased T2 signal in the xiomara are nonspecific, but most likely due t o small-vessel ischemic changes in this setting. Reading Location: [facility]
== END | disposition home or self-care (01) ==
PROVIDERS: PCP Family Medicine; Referring Provider Student in an Organized Health Care Education/Training Program; Visit Provider Student in an Organized Health Care Education/Training Program
DX: M54.2 Cervicalgia (principal); G95.9 Disease of spinal cord, unspecified; R26.81 Unsteadiness on feet
CPT/HCPCS: 72141

== ENCOUNTER → 2025-02-20 | Outpatient (CLI) | payer MEDICARE, SELFPAY ==
--- NOTE | 2025-02-20 14:10 | CT_ITS ---
PROCEDURE: CT/Extremity Lower without Contra
== END | disposition home or self-care (01) ==
LOC: CT 13:54
PROVIDERS: PCP Family Medicine; Referring Provider Orthopaedic Surgery; Visit Provider Orthopaedic Surgery
DX: M17.12 Unilateral primary osteoarthritis, left knee (principal)
CPT/HCPCS: 73700

== ENCOUNTER → 2025-02-27 | Outpatient (CLI) | payer MEDICARE, SELFPAY ==
[2025-02-27 15:08] LABS: Hematocrit 45.2 % (37-47); Hemoglobin 16.0 g/dL (12.0-15.0); Immature Granulocytes Count 0.020 X10^3/uL (0.0-0.0); Mean Corp Hgb Conc 35.4 g/dL (32-36); Mean Corpuscular Volume 95.8 fL (81-99); Mean Platelet Vol. 10.4 fl (6.2-12.0); NRBC Flagged by Analyzer 0 % (0-5); Platelet Count 240 K/mm3 (150-450); RBC Distribution Width CV 12.3 % (11.6-14.6); RBC Distribution Width SD 43.3 fl (35.1-43.9); Red Blood Count 4.72 M/mm3 (4.2-5.4); White Blood Count 7.3 K/mm3 (4.4-11.0)
[2025-02-27 15:30] LABS: Pro- Brain NATRIURETIC PEPTIDE 94 pg/mL (<=1800); Troponin T High Sensitivity 8 ng/L (<=14)
== END | disposition home or self-care (01) ==
LOC: MFPLAB 11:38
PROVIDERS: PCP Family Medicine; Visit Provider Family Medicine
DX: R94.31 Abnormal electrocardiogram [ECG] [EKG] (principal); D58.2 Other hemoglobinopathies
CPT/HCPCS: 36415; 83880; 84484; 85025

== ENCOUNTER → 2025-03-21 | Outpatient (CLI) | payer MEDICARE, SELFPAY ==
--- OUTSIDE RECORDS SUMMARY | 2025-03-21 06:53 | XMS RPT_ITS | CCD ---
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 Erickson Attending Provider Analilia PINA, Dr. Erickson Referring Provider Hira PINA, Dr. Tavarez Attending Provider 1([facility])[phone] Jelena Arias MD Primary Care Provider 1([facility])[phone] Brandon APPLICATION SECURITY ARCHITECT-CSera Attending Provider Brandon APPLICATION SECURITY ARCHITECT-CSera Referring Provider Jelena Arias MD Primary Care Physician Jelena Arias MD Attending Physician Jelena Arias MD Referring Provider 1([facility])[phone] Wlil Cheng DO Attending Physician Lisa Parsons Attending Physician 1([facility])[phone] Regina PINA, Dr. Gonzalez Attending Physician 1([facility])[phone] Dr. Will Cheng DO Referring Provider Lisa Parsons Referring Provider 1([facility])[phone] Hugo, Chalon Primary Care Unavailable Will Cheng Attending Unavailable Hugo, Jelena Attending Unavailable Hugo, Chalon Primary Care Unavailable Hugo, Chalon Attending Unavailable Hugo, Chalon Primary Care Unavailable Hugo, Chalon Referring Unavailable Hugo, Chalon Primary Care Unavailable Hugo, Chalon Referring Unavailable Will Cheng Attending Unavailable Hugo, Chalon Primary Care Unavailable Hugo, Chalon Referring Unavailable Lisa Hummel Attending Unavailable Hugo, Chalon Primary Care Unavailable Hugo, Chalon Referring Unavailable Borruso, Will Attending Unavailable Hugo, Chalon Primary Care Unavailable Hugo, Chalon Referring Unavailable ShaheedLisa Attending Unavailable Hugo, Chalon Primary Care Unavailable Carlos Tapia Attending Unavailable Hugo, Chalon Primary Care Unavailable Borruso, Will Attending Unavailable Borruso, Will Referring Unavailable Hugo, Chalon Primary Care Unavailable ShaheedCrystalyn Referring Unavailable ShaheedLisa Attending Unavailable Hugo, Chalon Primary Care Unavailable Lvruso, Will Attending Unavailable Ryanso, Will Referring Unavailable Chenevey, Dre Referring Unavailable [facility] Doctor, Out of Primary Care Unavailable Corby Iniguez Attending Unavailable Chenevey, Dre Referring Unavailable Chenevey, Dre Attending Unavailable [facility] Doctor, Out of Primary Care Unavailable Hugo, Chalon Primary Care Unavailable Brandon APPLICATION SECURITY ARCHITECT, Sera Referring Unavailable Brandon APPLICATION SECURITY ARCHITECT, Sera Attending Unavailable Hugo, Chalon Attending Unavailable Hugo, Chalon Primary Care Unavailable Hugo, Chalon Referring Unavailable Hugo, Chalon Primary Care Unavailable Ryanso, Will Attending Unavailable Lvruso, Will Referring Unavailable Hugo, Chalon Primary Care Unavailable Hugo, Chalon Referring Unavailable Hugo, Chalon Attending Unavailable Allergies Allergy Classification Reported Allergen(s) Allergy Type Date of Onset Reaction(s) Facility (1 source) Penicillin Drug Allergy 03-01-2025 [facility] Repository Medications Current Medications Medication Drug Class(es) Dates Sig (Normalized) Sig (Original) alendronic acid 35 mg oral tablet (8 sources) Bisphosphonate Start: 01-15-2025 take 1 tablet by mouth every week Start: 01-15-2025 take 1 tablet by mouth every w [place] escitalopram 20 mg oral tablet (8 sources) Serotonin Reuptake Inhibitor Start: 01-15-2025 take 1 tablet by mouth once daily Start: 01-15-2025 take 1 tablet by mouth once da kaveh Completed/Discontinued Medications Medication Drug Class(es) Dates Sig (Normalized) Sig (Original) FLUoxetine 20 mg oral capsule (9 sources) Serotonin Reuptake Inhibitor Start: 12-01-2014 End: 01-15-2025 take 1 capsule by mouth once daily Fluoxetine 20 MG capsule Discontinued 20 mg PO DAILY December 01, 2014 12:00am January 15, 2025 8:22am Problems Problem Classification Problem Date Documented Date Episodic/Chronic Immunity disorders (1 source) Nonfamilial hypogammaglobulinemia; Translations: [Nonfamilial hypogammaglobulinemia] Onset: 01-12-2025 Chronic Osteoarthritis (20 sources) Osteoarthritis of left knee joint; Translations: [Unilateral primary osteoarthritis, left knee] Onset: 03-03-2025 01-15-2025 Chronic Osteoporosis (1 source) Age-related osteoporosis without current pathological fracture; Translations: [Age-related osteoporosis without current pathological fracture] Onset: 01-25-2025 Chronic Other fractures (16 sources) Compression fracture of lumbar spine; Translations: [Wedge compression fracture of first lumbar vertebra, initial encounter for closed fracture] 01-18-2025 Episodic Other nervous system disorders (8 sources) Cervical myelopathy; Translations: [Disease of spinal cord, unspecified] 01-18-2025 Chronic Other non-traumatic joint disorders (16 sources) Unstable knee; Translations: [Other instability, left knee] 01-15-2025 Episodic Other non-traumatic joint disorders (1 source) Pain in left knee; Translations: [Pain in left knee] Onset: 02-07-2025 Episodic Other screening for suspected conditions (not mental disorders or infectious disease) (1 source) Abnormal electrocardiogram [ECG] [EKG]; Translations: [Abnormal electrocardiogram [ECG] [EKG]] Onset: 03-01-2025 Episodic Retinal detachments; defects; vascular occlusion; and retinopathy (1 source) Retinal ischemia; Translations: [Retinal ischemia] Onset: 06-02-2024 Chronic Spondylosis; intervertebral disc disorders; other back problems (16 sources) Degeneration of cervical intervertebral disc; Translations: [Other cervical disc degeneration, unspecified cervical region] 01-18-2025 Chronic Spondylosis; intervertebral disc disorders; other back problems (18 sources) Lumbar radiculopathy; Translations: [Radiculopathy, lumbar region] Onset: 01-18-2025 01-18-2025 Episodic Results Test Name Value Interpretation Reference Range Facility Orthopedic Visit Reporton Orthopedic Visit Report [facility] [address] [place] [id number] OFFICE VISIT Date of Service: 03/01/25 MR#: [id number] Acct: [id number] Name: KRUPABRYCE K Rep #: [id number] : 1945 Provider: CINTIA David Age/Sex: 79/F Location: [facility] Status: Signed Intake Vital Signs 02/05/25 11:23 Height 5 ft 3 in Weight: 193 lb BMI 34.2 Intake Visit Reasons: CERVICAL SPINE Allergies penicillin Allergy (Verified 03/01/25 13:29) Rash Medications ???Medication ???Instructions ???Recorded ???Confirmed ???Type alendronate 35 mg tablet 35 mg PO QWEEK 01/15/25 03/01/25 H istory escitalopram oxalate 20 mg tablet 20 mg PO QDAY 01/15/25 03/01/25 H istory Have you fallen in the past year?: Yes PFSH Surgical History History of nasal surgery History of tubal ligation History of cataract removal with insertion of prosthetic lens History of appendectomy History of right knee joint replacement Social History Smoking Status: Never smoker alcohol intake: current alcohol intake frequency: a few times a week HPI CERVICAL SPINE Details: This documentation accurately reflects the service provided and the decisions made by me, CINTIA David 03/01/25 1327. Part of today???s visit was documented by Regina CRUZ, acting as scribe. BRYCE GENTILE is a 79 year old F here today for MRI review of her cervical spine. She states that her symptoms are starting to feel a little bit better as she has been guarding her neck more. Says that she is getting a left total knee replacement with Dr. Cheng in March. She says that she feels like the neck pain has gotten a little bit better, she continues to deny any radicular symptoms into the arms. Patient does have a history of decreasing balance and dexterity however she does not feel like this has been significantly been getting worse and feels like this has been stable. No recent injections in her neck or her lower back. No recent physical therapy. HPI from 01/18/25: BRYCE GENTILE is a 79 year old F here today for lumbar spine. Patient states that she doesn't have any pain today. She states that the lower back pain is in the middle. Patient states that sometimes she will get pain going down her legs. She states that both legs are about the same. Bending forwards increases her pain. Says that she gets pain that goes down the front of the legs and also pain into the reyez. She notices that she also gets pain in the left foot which she does not have in the right foot. Patient states that she is unable to squat. The pain is an achy pain. Patient states that she has had injections in her lower back. She saw Dr. Alfaro in [place] about 3 years ago. The injections did help a lot. They lasted for a couple of years. She states that she did physical therapy in [place]. Patient state that the physical therapy did help. She states that she doesn't remember injuring anything. Patient states that her balance is bad. She says that she also has noticed neck pain, especially left-sided neck pain. She does not have any radicular symptoms that extend into her arms. Says that she feels like she has been clumsy for several years and feels like she does drop things out of her hands however she denies any recent change. She also notices that her balance has been worsening. She does think that over the last year it has been worsening. She states that she doesn't use a walker, or a cane. No diabetes, no heart or lung issues, no blood thinners. The patient is seen Dr. Cehng for left knee pain. Says that she does believe that some of her balance issues is related to the knee as this has given out on her in the past. Ortho Exam General General: Yes no acute distress Neurologic: Yes alert and Yes oriented x3 Psychologic: Yes reasonable and appropriate Spine SPINE TESTING CERVICAL THORACIC LUMBAR Musculoskeletal Strength 0=absent - 5=normal Details: Neurological exam of the lower and upper extremities shows 5x5 power. Normal sensations across all dermatomes. No hyperreflexia. Stephen's negative. Some mild midline tenderness, left-sided paraspinal tenderness. Romberg's negative. Tandem gait shows ataxia, uncertain if related to a true balance deficit or due to the left sided knee pain. Coding Level of Care Code Off vis,est,level 4 Diagnoses Degenerative disc disease, cervical M50.30 Lumbar radiculopathy M54.16 Compression fracture of L1 vertebra, initial encounter S32.010A Encounter type: initial encounter Assessment and Plan Assessment and Plan (1) Degenerative disc disease, cervical: Status: Acute (2) Lumbar radiculopathy: Status: Acute (3) Compression fracture of L1 lumbar vertebra: Status: A (more content not included)... Normal [facility] CBC W/Diff, Automatedon 11-0 -2024 Absolute Lymph 1.70 X10 3/uL Normal 0.83-4.51 [facility] Comment on above: Performed By: #### L 501.4021, L503.7505, L100.0100 ####[facility] [address] [place], [address] Absolute Neut 4.7 X10 3/uL Normal 2.0-7.7 [facility] Comment on above: Performed By: #### L 501.4021, L503.7505, L100.0100 ####[facility] [address] [place], [address] Basophils/100 WBC (Bld) 0.5 % Normal 0-1 [facility] Comment on above: Performed By: #### L 501.4021, L503.7505, L100.0100 ####[facility] [address] [place], [address] Eosinophils/100 WBC (Bld) 2.6 % Normal 0-5 [facility] Comment on above: Performed By: #### L 501.4021, L503.7505, L100.0100 ####[facility] [address] [place], [address] Erythrocyte distribution width (RBC) [Ratio] 12.3 % Normal 11.6-14.6 [facility] Comment on above: Performed By: #### L 501.4021, L503.7505, L100.0100 ####[facility] [address] [place], [address] Hematocrit (Bld) [Volume fraction] 45.2 % Normal 37-47 [facility] Comment on above: Performed By: #### L 501.4021, L503.7505, L100.0100 ####[facility] [address] [place], [address] Hemoglobin (Bld) [Mass/Vol] 16.0 g/dL High 12.0-15.0 [facility] Comment on above: Performed By: #### L 501.4021, L503.7505, L100.0100 ####[facility] [address] [place], [address] IG% 0.300 Normal 0.0-0.9 [facility] Comment on above: Result Comment: IG% - Immature Granulocytes (promyelocytes, myelocytes and metamyelocytes) > 1% indicates that a LEFT SHIFT is Present. Performed By: #### L 501.4021, L503.7505, L100.0100 ####[facility] [address] [place], [address] Lymphocytes/100 WBC (Bld) 23.3 % Normal 19-41 [facility] Comment on above: Performed By: #### L 501.4021, L503.7505, L100.0100 ####[facility] [address], [address] MCH (RBC) [Entitic mass] 33.9 pg High 27.0-32.0 [facility] Comment on above: Performed By: #### L 501.4021, L503.7505, L100.0100 ####[facility] [address] [place], [address] MCHC (RBC) [Mass/Vol] 35.4 g/dL Normal 32-36 [facility] Comment on above: Performed By: #### L 501.4021, L503.7505, L100.0100 ####[facility] [address] [place], [address] MCV (RBC) [Entitic vol] 95.8 fL Normal 81-99 [facility] Comment on above: Performed By: #### L 501.4021, L503.7505, L100.0100 ####[facility] [address] [place], [address] Monocytes/100 WBC (Bld) 9.3 % Normal 0-10 [facility] Comment on above: Performed By: #### L 501.4021, L503.7505, L100.0100 ####[facility] [address] [place], [address] Neutrophils/100 WBC (Bld) 64.0 % Normal 47-70 [facility] Comment on above: Performed By: #### L 501.4021, L503.7505, L100.0100 ####[facility] [address] [place], [address] Nucleated RBC (Bld) [#/Vol] 0 10*3/uL Normal 0-5 [facility] Comment on above: Performed By: #### L 501.4021, L503.7505, L100.0100 ####[facility] [address] [place], [address] Platelet mean volume (Bld) [Entitic vol] 10.4 fL Normal 6.2-12.0 [facility] Comment on above: Performed By: #### L 501.4021, L503.7505, L100.0100 ####[facility] [address] [place], [address] Platelets (Bld) [#/Vol] 240 10*3/uL Normal 150-450 [facility] Comment on above: Performed By: #### L 501.4021, L503.7505, L100.0100 ####[facility] [address] [place], [address] RBC (Bld) [#/Vol] 4.72 10*6/uL Normal 4.2-5.4 [facility] Comment on above: Performed By: #### L 501.4021, L503.7505, L100.0100 ####[facility] [address] [place], [address] RDW SD 43.3 fl Normal 35.1-43.9 [facility] Comment on above: Performed By: #### L 501.4021, L503.7505, L100.0100 ####[facility] [address] [place], [address] WBC (Bld) [#/Vol] 7.3 10*3/uL Normal 4.4-11.0 [facility] Comment on above: Performed By: #### L 501.4021, L503.7505, L100.0100 ####[facility] [address] [place], [address] L501.4021on 02-27-2025 Trop T High Sen 8 ng/L Normal <=14 [facility] Comment on above: Performed By: #### L 501.4021, L503.7505, L100.0100 ####[facility] [address] [place], [address] Pro- Brain NATRIURETIC PEPTI Danny 02-27-2025 Natriuretic peptide B (Bld) [Mass/Vol] 94 pg/mL Normal <=1800 [facility] Comment on above: Result Comment: Hear t Failure Unlikely: < 300 pg/mL Heart Failure Likely < 50 Years: > 450 pg/mL 50-75 Years: > 900 pg/mL >75 Years: > 1800 pg/mL Performed By: #### L 501.4021, L503.7505, L100.0100 ####[facility] [address] [place], [address] Extremity Lower without Cont raon 02-20-2025 Extremity Lower without Contra [facility] Imaging Services [address] [place] [address] Extremity Lower without Contra MR#: [id number] Acct: [id number] Name: BRYCE GENTILE Rep #: [id number] : 1945 F 79 From: Humberto Nunez MD PCP: Dr. Jelena Arias MD Status: REG CLI Study: Extremity Lower without Contra Date of Exam: Exam# [id number] Ordering Dr: Will Cheng DO PROCEDURE: EXTREMITY LOWER WITHOUT CONTRA 02/20/2025 REASON FOR EXAM: TEMPLATING LEFT TKA TECHNIQUE: Procedure Code: CTELWO Modality: CT Procedure: EXTREMITY LOWER WITHOUT CONTRA Coronal and Sagittal reconstruction series were provided of the left knee. CONTRAST: None One or more dose reduction techniques were used (e.g., Automated exposure control, adjustment of the mA and/or kV according to patient size, use of iterative reconstruction technique). RADIATION DOSE SUMMARY: DLP: 1583 mGycm COMPARISON: None FINDINGS: There is moderate to severe tricompartment osteoarthritis, most severe in the medial compartment. There is joint space narrowing, and marginal osteophytes. A 0.6 cm developing osteochondral defect is noted in the medial femoral condyle. There are multiple corticated osteochondral fragments in the anterior lateral joint space with the largest measuring 0.8 cm. There is a small joint effusion. There is no suspicious lytic or blastic lesion. 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/Extremity Lower without Contra IMPRESSION: There is moderate to severe tricompartment osteoarthritis, most severe in the medial compartment. There is joint space narrowing, and marginal osteophytes. A 0.6 cm developing osteochondral defect is noted in the medial femoral condyle. There are multiple corticated osteochondral fragments in the anterior lateral joint space with the largest measuring 0.8 cm. There is a small joint effusion. 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 Reading Location: [facility] CC: Dr. Jelena Arias MD; Dr. Will Cheng DO Resolution Agent: Signed Normal [facility] Orthopedic Visit Reporton Orthopedic Visit Report [facility] [facility] [address] [place] [address] OFFICE VISIT Date of Service: 02/05/25 MR#: [id number] Acct: [id number] Name: BRYCE GENTILE Rep #: [id number] : 1945 Provider: Dr. Will moreno DO Age/Sex: 79/F Location: [facility] Status: Signed Intake Vital Signs 01/18/25 15:07 02/05/25 11:23 Height 5 ft 3 in 5 ft 3 in Weight: 191 lb 4 oz 193 lb BMI 33.8 34.2 Intake Visit Reasons: LEFT KNEE Chief Complaint: left knee pain Accompanied by: Is patient in pain?: No Allergies penicillin Allergy (Verified 02/05/25 11:21) Rash Medications ???Medication ???Instructions ???Recorded ???Confirmed ???Type alendronate 35 mg tablet 35 mg PO QWEEK 01/15/25 02/05/25 H istory escitalopram oxalate 20 mg tablet 20 mg PO QDAY 01/15/25 02/05/25 H istory Have you fallen in the past year?: Yes PFSH Surgical History History of nasal surgery History of tubal ligation History of cataract removal with insertion of prosthetic lens History of appendectomy History of right knee joint replacement Social History Smoking Status: Never smoker alcohol intake: current alcohol intake frequency: a few times a week HPI LEFT KNEE Details: This documentation accurately reflects the service provided and the decisions made by me, Dr. Will Cheng, DO 02/05/25 09. Part of today???s visit was documented by Adele Diaz RN, acting as scribe. BRYCE GENTILE is a 79 year old F here today for left knee MRI review follow-up; continues to have left knee pain patient states pain with Ambulation, keeping knee straight states at night the pain in the knee will throb. 01/15/2025 visit:79 year old F new patient here today [...] other knee prior to her knee replacement. Plan:Patient is here today for left knee pain. I did review xrays from August today with patient and advised her that she does have some mild arthritis with some spurring and likely has a degenerative tear of her medial meniscus. I spoke with patient that for this we typically treat it by anti- inflammatories and a steroid injection. Another option would be to get an MRI then decide if we would want to go in arthroscopically or talk about knee replacement. patient wishes to proceed with an MRI. Follow up after MRI or sooner if pain, swelling, numbness or associated symptoms, or concerns develop. All questions answered. Patient in agreement of plan. Ortho Exam General General: Yes no acute distress Neurologic: Yes alert and Yes oriented x3 Psychologic: Yes reasonable and appropriate Right Knee Patella Translation: 1 KNEE: flexion 120 Left Knee Skin/Wound: No ecchymosis, No erythema and Yes swelling Homans Sign: No Knee ROM: Yes ROM-Extension -20 to 0 (-8) and Yes ROM-Flexion 0-140 (108) Examination: Yes med jt line tenderness, Yes Lat jt line tenderness and No TTP Pes Anserine Stability: NML: Anterior Drawer, NML: Posterior Drawer, NML: Valgus 0, NML: Valgus 30, NML: Varus 0 and NML: Varus 30 Patella Translation: 1 Patella Grind: Yes KNEE: no effusion medial click with lateral gillian pain with medial gillian Supplemental Info 01/25/2025 MRI left knee: Medial meniscus: High-grade attenuating incomplete radial tear of the far posterior horn of the medial meniscus near the root attachment, resulting in extrusion of the body, with intrasubstance degeneration. Chondral degeneration in all three compartments. Areas to bone in the patellofemoral and likely the medial compartments. Small effusion. Moderate prepatellar edema/bursitis. Plica. Popliteal cyst and cyst leakage. Mild blunting and fraying of the free edge of the l (more content not included)... Normal [facility] Magnetic resonance imaging r eportOrdered By: Corby Blake on 02-02-2025 Study report [facility] Imaging Services [address] [place], [place] [id number] Spine Cervical (Routine) MR#: [id number] Acct: [id number] Name: BRYCE GENTILE Rep #: [id number] : 1945 F 79 From: Jannie Blake MD PCP: Dr. Jelena Arias MD Status: REG CL I Study:Spine Cervical (Routine) Date of Exam: 01/31/25 Exam# [id number] Ordering Dr: Ludin Hummel PA PROCEDURE: SPINE CERVICAL (ROUTINE) 01/31/2025 REASON FOR EXAM: WORSENING BALANCE, NECK PAIN TECHNIQUE: Procedure Code: MRISPC Modality: MR Procedure: SPINE CERVICAL (ROUTINE) Multiplanar and multisequence images were obtained without IV contrast administration. FINDINGS: Mild midcervical kyphosis and spondylosis. No compression fracture. Degenerative endplate changes with otherwise normal marrow signal intensity. Visualized portions of the cerebellum, cervical and upper thoracic spinal cord exhibit normal signal intensity. Small areas of increased T2 signal intensity in the xiomara. Bilateralfacet arthrosis at all cervical levels. C3-4: Grade 1 anterolisthesis. Severe bilateral foraminal stenosis. C4-5: Grade 1 anterolisthesis. Broad-based disc bulge. Woui-dc-gdsikphg spinalstenosis and mild cord effacement. Moderately severe right and severe left foraminal stenosis. C5-6: Broad-based disc bulge. Moderate spinal stenosis and mild cord effacement. Moderately severe bilateral foraminal stenosis. C6-7: Small disc bulge. Severe right foraminal stenosis. C7-T1: Mild bilateral foraminal stenosis. T1-2: Left facet arthrosis and mild left foraminal stenosis. T2-3: Left facet arthrosis and moderate left foraminal stenosis. T3-4: Left facet arthrosis and ntkc-hu-neqegeht left foraminal stenosis. No other significant disc bulge or herniation is identified. Remaining intervertebral foramina and spinal canal appear adequately patent. Surrounding soft tissues appear otherwise unremarkable. MRI/Spine Cervical (Routine) IMPRESSION: Mild cord effacements at C5-6. Foraminal stenoses at C3-T4. Kyphosis and spondylosis. Areas of increased T2 signal in the xiomara are nonspecific, but most likely due tosmall-vessel ischemic changes in this setting. Reading Location: [facility] CC: CINTIA David; Dr. Jelena Arias MD ~ Resolution Agent: Signed [facility] Spine Cervical (Routine)on Spine Cervical (Routine) [facility] Imaging Services [address] [place], [place] [address] Spine Cervical (Routine) MR#: [id number] Acct: [id number] Name: BRYCE EGNTILE Rep #: [id number] : 1945 F 79 From: Corby blanco MD PCP: Dr. Jelena Arias MD Status: REG CLI Study: Spine Cervical (Routine) Date of Exam: Exam# [id number] Ordering Dr: Lisa Hummel PROCEDURE: SPINE CERVICAL (ROUTINE) 01/31/2025 REASON FOR EXAM: WORSENING BALANCE, NECK PAIN TECHNIQUE: Procedure Code: MRISPC Modality: MR Procedure: SPINE CERVICAL (ROUTINE) Multiplanar and multisequence images were obtained without IV contrast administration. FINDINGS: Mild midcervical kyphosis and spondylosis. No compression fracture. Degenerative endplate changes with otherwise normal marrow signal intensity. Visualized portions of the cerebellum, cervical and upper thoracic spinal cord exhibit normal signal intensity. Small areas of increased T2 signal intensity in the xiomara. Bilateral facet arthrosis at all cervical levels. C3-4: Grade 1 anterolisthesis. Severe bilateral foraminal stenosis. C4-5: Grade 1 anterolisthesis. Broad-based disc bulge. Ykwu-hh-bqbdwykv spinal stenosis and mild cord effacement. Moderately severe right and severe left foraminal stenosis. C5-6: Broad-based disc bulge. Moderate spinal stenosis and mild cord effacement. Moderately severe bilateral foraminal stenosis. C6-7: Small disc bulge. Severe right foraminal stenosis. C7-T1: Mild bilateral foraminal stenosis. T1-2: Left facet arthrosis and mild left foraminal stenosis. T2-3: Left facet arthrosis and moderate left foraminal stenosis. T3-4: Left facet arthrosis and jjfh-zi-aqxqtuiq left foraminal stenosis. No other significant disc bulge or herniation is identified. Remaining intervertebral foramina and spinal canal appear adequately patent. Surrounding soft tissues appear otherwise unremarkable. MRI/Spine Cervical (Routine) IMPRESSION: Mild cord effacements at C5-6. Foraminal stenoses at C3-T4. Kyphosis and spondylosis. Areas of increased T2 signal in the xiomara are nonspecific, but most likely due to small-vessel ischemic changes in this setting. Reading Location: [facility] CC: CINTIA David; Dr. Jelena Arias MD Resolution Agent: Signed Normal [facility] Magnetic resonance imaging r eportOrdered By: Corby Blake on 01-30-2025 Study report [facility] Imaging Services [address] [place] [address] Lower Ext Joint Only (Routine) MR#: [id number] Acct: [id number] Name: BRYCE GENTILE Rep #: [id number] : 1945 F 79 From: Jannie Blake MD PCP: Dr. Jelena Arias MD Status: REG CL I Study:Lower Ext Joint Only (Routine) Date of Exam: 01/25/25 Exam# [id number] Ordering Dr: Will Cheng DO PROCEDURE: LOWER EXT JOINT ONLY (ROUTINE) 01/25/2025 REASON FOR EXAM: PAIN TECHNIQUE: Procedure Code: MRILEJ Modality: MR Procedure: LOWER EXT JOINT ONLY (ROUTINE) Multiplanar and multisequence images were obtained without IV contrast administration. COMPARISON: COMPARISON : FINDINGS: Menisci: Mild blunting and fraying of the free edge of the body of the lateral meniscus, otherwise without tear. High-grade attenuating incomplete radial tear of the far posterior horn of the medial meniscus near the root attachment, resulting in extrusion of the body, with intrasubstance degeneration Ligaments and tendons: No cruciate or collateral ligament tear. No iliotibial band abnormality. No medial or lateral patellofemoral ligament/retinaculum tear. Mild quadriceps tendinosis. Mild semimembranosus tendinosis. Mild popliteus tendinosis. Bones and soft tissues: Small effusion. Small popliteal cyst with adjacent fluid suggesting cyst leakage. Moderate prepatellar edema/bursitis. Infrapatellar plica. Well-positioned patella. Chondral thinning and fissuring and irregularity with areas to bone in the patellar apex and medial facet with mild periarticular bone edema. Chondral thinning and irregularity in the trochlea. Chondral thinning in the lateral tibial plateau. Extensive chondral thinning and irregularity, with periarticular bone edema and areas likely to bone, along both medial knee articular surfaces. Marginal osseous ridging about all three compartments of the knee and the femoral notch. MRI/Lower Ext Joint Only (Routine) IMPRESSION: Medial meniscus: High-grade attenuating incomplete radial tear of the far posterior horn of the medial meniscus near the root attachment, resulting in extrusion of the body, with intrasubstance degeneration. Chondral degeneration in all three compartments. Areas to bone in the patellofemoral and likely the medial compartments. Small effusion. Moderate prepatellar edema/bursitis. Plica. Popliteal cyst and cyst leakage. Mild blunting and fraying of the free edge of the lateral meniscus. Mild tendinosis. Reading Location: [facility] CC: Dr. Jelena Arias MD; Dr. Will Cheng DO ~ Resolution Agent: Signed [facility] Lower Ext Joint Only (Routin e)on 01-25-2025 Lower Ext Joint Only (Routine) [facility] Imaging Services [address] [place] [address] Lower Ext Joint Only (Routine) MR#: [id number] Acct: [id number] Name: BRYCE GENTILE Rep #: [id number] : 1945 F 79 From: Corby blanco MD PCP: Dr. Jelena Arias MD Status: REG CLI Study: Lower Ext Joint Only (Routine) Date of Exam: Exam# [id number] Ordering Dr: Will Cheng DO PROCEDURE: LOWER EXT JOINT ONLY (ROUTINE) 01/25/2025 REASON FOR EXAM: PAIN TECHNIQUE: Procedure Code: MRILEJ Modality: MR Procedure: LOWER EXT JOINT ONLY (ROUTINE) Multiplanar and multisequence images were obtained without IV contrast administration. COMPARISON: COMPARISON : FINDINGS: Menisci: Mild blunting and fraying of the free edge of the body of the lateral meniscus, otherwise without tear. High-grade attenuating incomplete radial tear of the far posterior horn of the medial meniscus near the root attachment, resulting in extrusion of the body, with intrasubstance degeneration Ligaments and tendons: No cruciate or collateral ligament tear. No iliotibial band abnormality. No medial or lateral patellofemoral ligament/retinaculum tear. Mild quadriceps tendinosis. Mild semimembranosus tendinosis. Mild popliteus tendinosis. Bones and soft tissues: Small effusion. Small popliteal cyst with adjacent fluid suggesting cyst leakage. Moderate prepatellar edema/bursitis. Infrapatellar plica. Well-positioned patella. Chondral thinning and fissuring and irregularity with areas to bone in the patellar apex and medial facet with mild periarticular bone edema. Chondral thinning and irregularity in the trochlea. Chondral thinning in the lateral tibial plateau. Extensive chondral thinning and irregularity, with periarticular bone edema and areas likely to bone, along both medial knee articular surfaces. Marginal osseous ridging about all three compartments of the knee and the femoral notch. MRI/Lower Ext Joint Only (Routine) IMPRESSION: Medial meniscus: High-grade attenuating incomplete radial tear of the far posterior horn of the medial meniscus near the root attachment, resulting in extrusion of the body, with intrasubstance degeneration. Chondral degeneration in all three compartments. Areas to bone in the patellofemoral and likely the medial compartments. Small effusion. Moderate prepatellar edema/bursitis. Plica. Popliteal cyst and cyst leakage. Mild blunting and fraying of the free edge of the lateral meniscus. Mild tendinosis. Reading Location: [facility] CC: Dr. Jelena Arias MD; Dr. Will Cheng DO Resolution Agent: Signed Normal [facility] Bone density reportOrdered B y: Luis Sanders on 01-22-2025 Study report Skeletal system DXA [facility] Imaging Services [address] [place], [place] [id number] Dexa Bone Density Study MR#: [id number] Acct: [id number] Name: BRYCE GENTILE Rep #: [id number] : 1945 F 79 From: Kenneth Sanders MD PCP: Dr. Jelena Arias MD Status: REG CL I Study:Dexa Bone Density Study Date of Exam: 01/18/25 Exam# [id number] Ordering Dr: Magda Arias MD PROCEDURE: DEXA BONE DENSITY STUDY 01/18/2025 REASON FOR EXAM: F, age 79 y/o . TECHNIQUE: Procedure Code: BDDBD Modality: DX Procedure: DEXA BONE DENSITY STUDY COMPARISON: None. FINDINGS: BMD and T-SCORES Lumbar spine: 0.981 g/cm2, T-score -0.6 Levels: L1 through L4 Left femoral neck: 0.644 g/cm2, T-score -1.8 Left total hip: 0.808 g/cm2, T-score -1.1 Right femoral neck: 0.698 g/cm2, T-score -1.4 Right total hip: 0.843 g/cm2, T-score -0.8 The World Health Organization has defined the following categories based on bonedensity: Normal bone density: T-score equal to or greater than -1.0 Osteopenia: T-score between -1.0 and -2.5 Osteoporosis: T-score equal to or less than -2.5 FRAX (or Comparable) Fracture Risk Assessment: 10 Year Probability of Fracture: Major Osteoporotic Fracture: 11% Hip Fracture: 2.2% (Note: FRAX is not to be reported in setting of normal range bone density, osteoporosis on DEXA, known history of osteoporosis, prior osteoporotic hip or vertebral fracture, or for any patient undergoing pharmacological treatment for bone loss.) The National Osteoporosis Foundation (NOF) recommends pharmacological treatment for patients with a FRAX 10-year risk of 3% or higher for a hip fracture, or 20% or higher for a major osteoporotic fracture, to prevent osteoporosis and reduce fracture risk. The patient does not meet the pharmacological treatment recommendations for prevention of osteoporosis. BD/Dexa Bone Density Study IMPRESSION: There is osteopenia of both femoral necks and normal bone mineral density of thelumbar spine. Recommend follow-up as clinically warranted. Reading Location: [place] [address] CC: Dr. Jelena Arias MD ~ Resolution Agent: Signed [facility] Work Phone: Cerv Spine 2 or 3 Viewson Cerv Spine 2 or 3 Views [facility] Imaging Services [address] [place] [address] Cerv Spine 2 or 3 Views MR#: [id number] Acct: [id number] Name: BRYCE GENTILE Rep #: [id number] : 1945 F 79 From: France Gallego PCP: Dr. Jelena Arias MD Status: DEP AMB Study: Cerv Spine 2 or 3 Views Date of Exam: 01/18/25 Exam# [id number] Ordering Dr: Lisa Hummel PROCEDURE: CERV SPINE 2 OR 3 VIEWS 01/18/2025 REASON FOR EXAM: ON GOING PAIN TECHNIQUE: Procedure Code: RADSPCL Modality: DX Procedure: CERV SPINE 2 OR 3 VIEWS COMPARISON: Cervical spine study dated 01/04/2025. FINDINGS: Vertebrae: Lateral flexion and extension views of the cervical spine were obtained and demonstrate diffuse osteopenia of the osseous structures. There is no spondylolysis. Mild spondylosis of the cervical spine is noted. Disc spaces: Degenerative disc disease is seen involving the C4-C5, C5-C6, and C6-C7 levels. Alignment: There is approximately 2 mm of anterolisthesis of C3 in relationship to C4. There is no instability on the flexion or extension views. soft tissues: There is no prevertebral soft tissue swelling. RAD/Cerv Spine 2 or 3 Views IMPRESSION: MILD CERVICAL DEGENERATIVE CHANGES. Degenerative disc disease involving C4-C5, C5-C6, and C6-C7. There is approximately 2 mm of anterolisthesis of C3 in relationship to C4. There is no instability on the flexion or extension views. Reading Location: [id number] CC: CINTIA David; Dr. Jelena Arias MD Resolution Agent: Signed Normal [facility] Dexa Bone Density Studyon Dexa Bone Density Study [facility] Imaging Services [address] [place] [id number] Dexa Bone Density Study MR#: [id number] Acct: [id number] Name: BRYCE GENTILE Rep #: [id number] : 1945 F 79 From: Luis Sanders MD PCP: Dr. Jelena Arias MD Status: REG CLI Study: Dexa Bone Density Study Date of Exam: 01/18/25 Exam# [id number] Ordering Dr: Jelena Arias MD PROCEDURE: DEXA BONE DENSITY STUDY 01/18/2025 REASON FOR EXAM: F, age 79 y/o . TECHNIQUE: Procedure Code: BDDBD Modality: DX Procedure: DEXA BONE DENSITY STUDY COMPARISON: None. FINDINGS: BMD and T-SCORES Lumbar spine: 0.981 g/cm2, T-score -0.6 Levels: L1 through L4 Left femoral neck: 0.644 g/cm2, T-score -1.8 Left total hip: 0.808 g/cm2, T-score -1.1 Right femoral neck: 0.698 g/cm2, T-score -1.4 Right total hip: 0.843 g/cm2, T-score -0.8 The World Health Organization has defined the following categories based on bone density: Normal bone density: T-score equal to or greater than -1.0 Osteopenia: T-score between -1.0 and -2.5 Osteoporosis: T-score equal to or less than -2.5 FRAX (or Comparable) Fracture Risk Assessment: 10 Year Probability of Fracture: Major Osteoporotic Fracture: 11% Hip Fracture: 2.2% (Note: FRAX is not to be reported in setting of normal range bone density, osteoporosis on DEXA, known history of osteoporosis, prior osteoporotic hip or vertebral fracture, or for any patient undergoing pharmacological treatment for bone loss.) The National Osteoporosis Foundation (NOF) recommends pharmacological treatment for patients with a FRAX 10-year risk of 3% or higher for a hip fracture, or 20% or higher for a major osteoporotic fracture, to prevent osteoporosis and reduce fracture risk. The patient does not meet the pharmacological treatment recommendations for prevention of osteoporosis. BD/Dexa Bone Density Study IMPRESSION: There is osteopenia of both femoral necks and normal bone mineral density of the lumbar spine. Recommend follow-up as clinically warranted. Reading Location: [place] [address] CC: Dr. Jelena Arias MD Resolution Agent: Signed Normal [facility] L/S Spine Bending Flex/[place] 01-18-2025 L/S Spine Bending Flex/Ext [facility] Imaging Services [address] [place] [address] L/S Spine Bending Flex/Ext MR#: [id number] Acct: [id number] Name: BRYCE GENTILE Rep #: [id number] : 1945 F 79 From: France Gallego PCP: Dr. Jelena Arias MD Status: DEP AMB Study: L/S Spine Bending Flex/Ext Date of Exam: 01/18 Exam# [id number] Ordering Dr: Lisa Hummel PROCEDURE: L/S SPINE BENDING FLEX/EXT 01/18/2025 REASON FOR EXAM: CHRONIC BACK PAIN TECHNIQUE: Procedure Code: [id number] Modality: DX Procedure: L/S SPINE BENDING FLEX/EXT COMPARISON: Lumbar spine dated 01/04/2025 FINDINGS: Curvature: There is a normal lordotic lumbar curvature. There is no instability on the flexion or extension views. Other findings: Diffuse osteopenia of the lumbar spine and sacrum are noted. There are 5 lumbar- type vertebral bodies below the last set of paired ribs. Again noted is a decrease in height of the L1 vertebral body by approximately 30%. This is probably related to an osteoporotic compression fracture. The remaining vertebral body heights are within normal limits. There is no spondylolisthesis. No sacral fractures are noted. Other: Disc spaces are well-maintained. RAD/L/S Spine Bending Flex/Ext IMPRESSION: Decrease in height of the L1 vertebral body by approximately 30% which is most likely related to an osteoporotic compression fracture. Reading Location: [id number] CC: CINTIA David; Dr. Jelena Arias MD Resolution Agent: Signed Normal [facility] Orthopedic Visit Reporton Orthopedic Visit Report [facility] [address] [place] [address] OFFICE VISIT Date of Service: 01/18/25 MR#: [id number] Acct: [id number] Name: BRYCE GENTILE Rep #: [id number] : 1945 Provider: CINTIA David Age/Sex: 79/F Location: [facility] Status: Signed Intake Vital Signs 12/01/14 13:55 01/15/25 08:20 01/18/25 15:07 Height 5 ft 3 in 5 ft 3 in 5 ft 3 in Weight: 191 lb 6 oz 191 lb 4 oz BMI 33.9 33.8 Intake Visit Reasons: LUMBAR SPINE Chief Complaint: Lumbar spine pain Accompanied by: Is patient in pain?: No Allergies penicillin Allergy (Verified 01/18/25 15:11) Rash Medications ???Medication ???Instructions ???Recorded ???Confirmed ???Type alendronate 35 mg tablet 35 mg PO QWEEK 01/15/25 01/18/25 H istory escitalopram oxalate 20 mg tablet 20 mg PO QDAY 01/15/25 01/18/25 H istory Have you fallen in the past year?: Yes PFS Surgical History History of nasal surgery History of tubal ligation History of cataract removal with insertion of prosthetic lens History of appendectomy History of right knee joint replacement Social History Smoking Status: Never smoker alcohol intake: current alcohol intake frequency: a few times a week HPI LUMBAR SPINE Details: This documentation accurately reflects the service provided and the decisions made by me, CINTIA David 01/18/25 6634. Part of today???s visit was documented by Zev Calle MA, acting as scribe. BRYCE GENTILE is a 79 year old F here today for lumbar spine. Patient states that she doesn't have any pain today. She states that the lower back pain is in the middle. Patient states that sometimes she will get pain going down her legs. She states that both legs are about the same. Bending forwards increases her pain. Says that she gets pain that goes down the front of the legs and also pain into the reyez. She notices that she also gets pain in the left foot which she does not have in the right foot. Patient states that she is unable to squat. The pain is an achy pain. Patient states that she has had injections in her lower back. She saw Dr. Alfaro in [place] about 3 years ago. The injections did help a lot. They lasted for a couple of years. She states that she did physical therapy in [place]. Patient state that the physical therapy did help. She states that she doesn't remember injuring anything. Patient states that her balance is bad. She says that she also has noticed neck pain, especially left-sided neck pain. She does not have any radicular symptoms that extend into her arms. Says that she feels like she has been clumsy for several years and feels like she does drop things out of her hands however she denies any recent change. She also notices that her balance has been worsening. She does think that over the last year it has been worsening. She states that she doesn't use a walker, or a cane. No diabetes, no heart or lung issues, no blood thinners. The patient is seen Dr. Cheng for left knee pain. Says that she does believe that some of her balance issues is related to the knee as this has given out on her in the past. Ortho Exam General General: Yes no acute distress Neurologic: Yes alert and Yes oriented x3 Psychologic: Yes reasonable and appropriate Spine SPINE TESTING CERVICAL THORACIC LUMBAR Musculoskeletal Strength 0=absent - 5=normal Details: Neurological exam of the lower and upper extremities shows 5x5 power. Normal sensations across all dermatomes. No hyperreflexia. Stephen's negative. Some mild midline tenderness, left-sided paraspinal tenderness. Romberg's negative. Tandem gait shows ataxia, uncertain if related to a true balance deficit or due to the left sided knee pain. Coding Level of Care Code Off vis,est,level 4 Diagnoses Degenerative disc disease, cervical M50.30 Lumbar radiculopathy M54.16 Compression fracture of L1 vertebra, initial encounter S32.010A Encounter type: initial encounter Cervical myelopathy G95.9 Assessment and Plan Assessment and Plan (1) Degenerative disc disease, cervical: Status: Acute (2) Lumbar radiculopathy: Status: Acute (3) Compression fracture of L1 lumbar vertebra: Status: Acute Qualifiers: Encounter type: initial encounter Qualified Code(s): S32.010A - Wedge compression fracture of first lumbar vertebra, initial encounter for closed fracture (4) Cervical myelopathy: Orders: Orders L/S Spine Bending Flex/Ext Today M54.9 - Dorsalgia, unspecified Cerv Spine 2 or 3 Views Today M54.2 - Cervicalgia Spine Cervical (Routine) Today G95.9 - Disease of spinal cord, unspecified Plan Obtained reviewed flexion and extension lumbar (more content not included)... Normal [facility] Orthopedic Visit Reporton Orthopedic Visit Report [facility] [address] [place] [address] OFFICE VISIT Date of Service: 01/15/25 MR#: [id number] Acct: [id number] Name: BRYCE GENTILE Rep #: [id number] : 1945 Provider: Dr. Will moreno DO Age/Sex: 79/F Location: [facility] Status: Signed Intake Vital Signs 12/01/14 13:55 [...] the decisions made by me, Dr. Will Cheng DO 01/15/25 0749. Part of today???s visit [...] past year?: No 01/15/25 0953 Date Will Cheng Christofersemaj Signature: Date (more content not included)... Normal [facility] Absolute lymphocyte countOrd ered By: Jelena Arias on 01-04-2025 Lymphocytes Auto (Unsp spec) [#/Vol] 1.81 10*3/uL 0.83-4.51 [facility] Absolute neutrophil countOrd ered By: Jelena Arias on 01-04-2025 Neutrophils (Bld) [#/Vol] 5.3 10*3/uL 2.0-7.7 [facility] Anion gap in Serum or Plasma Ordered By: Jelena Arias on 01-04-2025 Anion gap [Moles/Vol] 14 mmol/L 5-15 [facility] Automated lymphocyte count a s percentage of total leukocytesOrdered By: Jelena Arias on 01-04-2025 Lymphocytes/100 WBC Auto (Unsp spec) 21.7 % 19-41 [facility] BUN/creatinine ratioOrdered By: Jelena Arias on 01-04-2025 Urea nitrogen/Creatinine [Mass ratio] 12.2 mg/mg 10-20 [facility] Basophil percentageOrdered B y: Jelena Arias on 01-04-2025 Basophils/100 WBC (Bld) 0.7 % 0-1 [facility] Bilirubin, totalOrdered By: Jelena Arias on 01-04-2025 Bilirubin [Mass/Vol] 0.82 mg/dL 0.00-1.30 [facility] CBC W/Diff, Automatedon 12-25 PLT EST ADEQUATE Normal ADEQ [facility] Comment on above: Performed By: #### L 500.4050, L500.4100, L503.6550, L503.6150, L506.1001, L100.0100 ####[facility] [address] [place], [address] Calculated very low density lipoprotein (VLDL) cholesterol measurementOrdered By: Jelena Arias on 01-04-2025 Calculated very low density lipoprotein (VLDL) cholesterol measurement 28 mg/dL 5-40 [facility] Carbon dioxide, total [Moles /volume] in Central venous bloodOrdered By: Jelena Arias on 01-04-2025 CO2 [Moles/Vol] 23.7 mmol/L 21.0-32.0 [facility] Cerv Spine 4 or 5 Viewson Cerv Spine 4 or 5 Views [facility] Imaging Services [address] [address] [facility] [place], [place] [id number] Cerv Spine 4 or 5 Views MR#: [id number] Acct: [id number] Name: BRYCE GENTILE Rep #: [id number] : 1945 F 79 From: Luis Sanders MD PCP: Dr. Jelena Arias MD Status: REG CLI Study: Cerv Spine 4 or 5 Views Date of Exam: 01/04/25 Exam# [id number] Ordering Dr: Jelena Arias MD PROCEDURE: CERV SPINE 4 OR 5 VIEWS 01/04/2025 REASON FOR EXAM: NECK PAIN TECHNIQUE: Procedure Code: RADSP Modality: DX Procedure: CERV SPINE 4 OR [...] Degenerative anterolisthesis, C3 on C4. Reading Location: [place] [address] CC: Dr. Jelena Arias MD Resolution Agent: Signed Normal [facility] Chloride assayOrdered By: Marleni Arias on 01-04-2025 Chloride [Moles/Vol] 103 mmol/L 98-108 [facility] Comprehensive Metabolic Prof ilon 01-04-2025 Albumin [Mass/Vol] 4.3 g/dL Normal 3.4-4.8 [facility] Comment on above: Performed By: #### L 500.4050, L500.4100, L503.6550, L503.6150, L506.1001, L100.0100 ####[facility] [address] [place], [address] Albumin/Globulin [Mass ratio] 1.6 {ratio} Normal 0.9-2.4 [facility] Comment on above: Performed By: #### L 500.4050, L500.4100, L503.6550, L503.6150, L506.1001, L100.0100 ####[facility] [address] [place], [address] ALK PHOS 81 U/L Normal 35-104 [facility] Comment on above: Performed By: #### L 500.4050, L500.4100, L503.6550, L503.6150, L506.1001, L100.0100 ####[facility] [address] [place], [address] ALT [Catalytic activity/Vol] 20 U/L Normal <=34 [facility] Comment on above: Performed By: #### L 500.4050, L500.4100, L503.6550, L503.6150, L506.1001, L100.0100 ####[facility] [address] [place], [address] AST [Catalytic activity/Vol] 30 U/L Normal <=31 [facility] Comment on above: Result Comment: Hemo lysis present, Results??could be affected. ?? Performed By: #### L 500.4050, L500.4100, L503.6550, L503.6150, L506.1001, L100.0100 ####[facility] [address] [place], [address] Bilirubin [Mass/Vol] 0.82 mg/dL Normal 0.00-1.30 [facility] Comment on above: Performed By: #### L 500.4050, L500.4100, L503.6550, L503.6150, L506.1001, L100.0100 ####[facility] [address] [place], [address] BUN/CRE 12.2 RATIO Normal 10-20 [facility] Comment on above: Performed By: #### L 500.4050, L500.4100, L503.6550, L503.6150, L506.1001, L100.0100 ####[facility] [address] [place], [address] Calcium [Mass/Vol] 10.3 mg/dL Normal 7.6-11.0 [facility] Comment on above: Performed By: #### L 500.4050, L500.4100, L503.6550, L503.6150, L506.1001, L100.0100 ####[facility] [address] [place], [address] Chloride [Moles/Vol] 103 mmol/L Normal 98-108 [facility] Comment on above: Performed By: #### L 500.4050, L500.4100, L503.6550, L503.6150, L506.1001, L100.0100 ####[facility] [address] [place], [address] CO2 [Moles/Vol] 23.7 mmol/L Normal 21.0-32.0 [facility] Comment on above: Performed By: #### L 500.4050, L500.4100, L503.6550, L503.6150, L506.1001, L100.0100 ####[facility] [address] [place], [address] Creatinine [Mass/Vol] 1.00 mg/dL Normal 0.70-1.20 [facility] Comment on above: Performed By: #### L 500.4050, L500.4100, L503.6550, L503.6150, L506.1001, L100.0100 ####[facility] [address] [place], [address] GAP 14 Normal 5-15 [facility] Comment on above: Performed By: #### L 500.4050, L500.4100, L503.6550, L503.6150, L506.1001, L100.0100 ####[facility] [address] [place], [address] GFR/1.73 sq M.predicted among non-blacks MDRD (S/P/Bld) [Vol rate/Area] 58 mL/min/{1.73_m2} Low >60 [facility] Comment on above: Result Comment: mL/m in/1.73m2 CKD-EPI Creatinine Equation (2020) Performed By: #### L 500.4050, L500.4100, L503.6550, L503.6150, L506.1001, L100.0100 ####[facility] [address] [place], [address] Globulin (S) [Mass/Vol] 2.6 g/dL Normal 2.2-4.2 [place] Comment on above: Performed By: #### L 500.4050, L500.4100, L503.6550, L503.6150, L506.1001, L100.0100 ####[facility] [address] [place], [address] Glucose [Mass/Vol] 92 mg/dL Normal 70-99 [facility] Comment on above: Performed By: #### L 500.4050, L500.4100, L503.6550, L503.6150, L506.1001, L100.0100 ####[facility] [address] [place], [address] Potassium [Moles/Vol] 4.3 mmol/L Normal 3.3-5.1 [facility] Comment on above: Result Comment: Hemo lysis present, Results??could be affected. ?? Performed By: #### L 500.4050, L500.4100, L503.6550, L503.6150, L506.1001, L100.0100 ####[facility] [address] [place], [address] Sodium [Moles/Vol] 140 mmol/L Normal 133-145 [facility] Comment on above: Performed By: #### L 500.4050, L500.4100, L503.6550, L503.6150, L506.1001, L100.0100 ####[facility] [address] [place], [address] T PROT 6.9 g/dL Normal 5.9-8.4 [facility] Comment on above: Performed By: #### L 500.4050, L500.4100, L503.6550, L503.6150, L506.1001, L100.0100 ####[facility] [address] [place], [address] Urea nitrogen [Mass/Vol] 12 mg/dL Normal 4-19 [facility] Comment on above: Performed By: #### L 500.4050, L500.4100, L503.6550, L503.6150, L506.1001, L100.0100 ####[facility] [address] [place], [place], [id number] Eosinophil percentageOrdered By: Jelena Hugo on 01-04-2025 Eosinophils/100 WBC (Bld) 2.4 % 0-5 [facility] Erythrocyte distribution wid th ratioOrdered By: [facility] on 01-04-2025 Erythrocyte distribution width (RBC) [Ratio] 12.2 % 11.6-14.6 [facility] Erythrocyte distribution wid th standard deviationOrdered By: [facility] on 01-04-2025 Erythrocyte distribution width (RBC) [Ratio] 43.6 fl 35.1-43.9 [facility] Ferritinon 01-04-2025 Ferritin [Mass/Vol] 207 ng/mL Normal 22-378 [facility] Comment on above: Performed By: #### L 500.4050, L500.4100, L503.6550, L503.6150, L506.1001, L100.0100 #### [facility] Laboratory [address] [facility] [place], [place], [address] Glomerular filtration rate ( GFR) estimation/1.73 sq m using serum, plasma, or whole bOrdered By: Jelena Arias on 01-04-2025 GFR/1.73 sq M.predicted among non-blacks MDRD (S/P/Bld) [Vol rate/Area] 58 mL/min/{1.73_m2} Low >60 [facility] Comment on above: mL/min/1.73m2 CKD-EP I Creatinine Equation (2020) Hematocrit Auto (Bld) [Volum e fraction]Ordered By: Jelena Arias on 01-04-2025 Hematocrit (Bld) [Volume fraction] 47.1 % High 37-47 [facility] Hemoglobin measurementOrdere d By: Jelena Arias on 01-04-2025 Hemoglobin (Bld) [Mass/Vol] 16.3 g/dL High 12.0-15.0 [facility] Immature granulocytes/100 WB C Auto (Bld)Ordered By: Jelena Arias on 01-04-2025 Immature granulocytes/100 WBC (Bld) 0.200 % 0.0-0.9 [facility] Comment on above: IG% - Immature Granu locytes (promyelocytes, myelocytes and metamyelocytes) > 1% indicates that a LEFT SHIFT is Present. Ironon 01-04-2025 Iron [Mass/Vol] 171 ug/dL High 50-170 [facility] Comment on above: Performed By: #### L 500.4050, L500.4100, L503.6550, L503.6150, L506.1001, L100.0100 ####[facility] [address] [place], [place], [address] Iron measurement (mass/mass) Ordered By: Jelena Arias on 01-04-2025 Iron (Unsp spec) [Mass/Mass] 171 ug/dL High 50-170 [facility] LDL calc ser/plasOrdered By: Jelena Arias on 01-04-2025 Cholesterol in LDL [Mass/Vol] 102 mg/dL [facility] Comment on above: Fnvkpezyrl=186-675 m g/dL & Higher Ibfs=556 mg/dL or greaterFriedwald Equation for LDL-C Laboratory - Chemistry and C hemistry - challengeOrdered By: Jelena Arias on 01-04-2025 AST [Catalytic activity/Vol] 30 U/L <32 [facility] Comment on above: Hemolysis present, R esults could be affected. Lipid Profileon 01-04-2025 CHOL:HDL 2.96 Normal [facility] Comment on above: Performed By: #### L 500.4050, L500.4100, L503.6550, L503.6150, L506.1001, L100.0100 #### [facility] [address] [place], [place], [address] Cholesterol [Mass/Vol] 196 mg/dL Normal <=200 [facility] Comment on above: Result Comment: Chol esterol level, Desirable <200 mg/dL Borderline high cholesterol 200-239 mg/dL High cholesterol >=240 mg/dL Recommendations of the NCEP Adult Treatment Panel for the following risk-cutoff thresholds for the [place] population. Performed By: #### L 500.4050, L500.4100, L503.6550, L503.6150, L506.1001, L100.0100 #### [facility] [address] [place], [address] Cholesterol in HDL [Mass/Vol] 66 mg/dL Normal [facility] Comment on above: Result Comment: Angie onal Cholesterol Education Program (NCEP) guidelines: <40 mg/dL: Low HDL-cholesterol (major risk factor for CHD) >= 60 mg/dL: High HDL-cholesterol (negative risk factor for CHD) HDL-cholesterol is affected by a number of factors, e.g. smoking, exercise, hormones, sex and age. Performed By: #### L 500.4050, L500.4100, L503.6550, L503.6150, L506.1001, L100.0100 #### [facility] [address] [place], [address] Cholesterol in LDL [Mass/Vol] 102 mg/dL Normal [facility] Comment on above: Result Comment: Bord fujyff=501-654 mg/dL Higher Qmoq=286 mg/dL or greater Friedwald Equation for LDL-C Performed By: #### L 500.4050, L500.4100, L503.6550, L503.6150, L506.1001, L100.0100 #### [facility] [address] [place], [address] Cholesterol in VLDL [Mass/Vol] 28 mg/dL Normal 5-40 [facility] Comment on above: Performed By: #### L 500.4050, L500.4100, L503.6550, L503.6150, L506.1001, L100.0100 #### [facility] [address] [place], [address] Triglyceride [Mass/Vol] 138 mg/dL Normal [facility] Comment on above: Result Comment: The drugs N-Acetylcysteine and Metamizole may falsely depress this assay. Normal range: <150 mg/dL Borderline High: 150-199 mg/dL High: 200-499 mg/dL Very High: >500 mg/dL Performed By: #### L 500.4050, L500.4100, L503.6550, L503.6150, L506.1001, L100.0100 #### [facility] [address] [place], [address] Lumbar Spine 2 or 3 Viewson 01-04-2025 Lumbar Spine 2 or 3 Views [facility] Imaging Services [address] [place] [address] Lumbar Spine 2 or 3 Views MR#: [id number] Acct: [id number] Name: BRYCE GENTILE Rep #: [id number] : 1945 F 79 From: Medina Hawkins MD PCP: Dr. Jelena Arias MD Status: REG CLI Study: Lumbar Spine 2 or 3 Views Date of Exam: Exam# [id number] Ordering Dr: Jelena Arias MD PROCEDURE: LUMBAR SPINE 2 OR 3 VIEWS 01/04/2025 REASON FOR EXAM: LOW BACK PAIN TECHNIQUE: Procedure Code: RADSPLL Modality: DX Procedure: LUMBAR SPINE 2 OR 3 VIEWS COMPARISON: NONE. FINDINGS: BONES: Five rgl-zai-czkrztj lumbar vertebral bodies. Mild anterior wedge compression deformity of the L1 vertebral body. No focal osseous lesion. Anatomic spinal alignment. DISC/DEGENERATIVE CHANGES: Disc spaces are preserved. SOFT TISSUES: Moderate colonic stool. RAD/Lumbar Spine 2 or 3 Views IMPRESSION: L1 vertebral body compression deformity, age indeterminate. If clinically indicated, a follow-up CT or MRI is suggested to further evaluate. Reading Location: [id number] CC: Dr. Jelena Arias MD Resolution Agent: Signed Normal [facility] MCV (mean corpuscular volume ) determinationOrdered By: Jelena Arias on 01-04-2025 MCV (RBC) [Entitic vol] 96.7 fL 81-99 [facility] Mean corpuscular hemoglobin (MCH) determinationOrdered By: Jelena Arias on 01-04-2025 MCH (RBC) [Entitic mass] 33.5 pg High 27.0-32.0 [facility] Mean corpuscular hemoglobin concentration (MCHC) determinationOrdered By: Jelena Arias on 01-04-2025 MCHC (RBC) [Mass/Vol] 34.6 g/dL 32-36 [facility] Mean platelet volume determi nationOrdered By: Jelena Arias on 01-04-2025 Platelet mean volume (Bld) [Entitic vol] 11.3 fL 6.2-12.0 [facility] Monocyte percentageOrdered B y: Jelena Arias on 01-04-2025 Monocytes/100 WBC (Bld) 11.4 % High 0-10 [facility] Neutrophil percentageOrdered By: Jelena Arias on 01-04-2025 Neutrophils/100 WBC (Bld) 63.6 % 47-70 [facility] Nucleated red blood cell per centageOrdered By: Jelena Arias on 01-04-2025 Nucleated RBC/100 WBC (Bld) [Ratio] 0 % 0-5 [facility] Platelet countOrdered By: Marleni Arias on 01-04-2025 Platelet count See comment 150-450 [facility] Comment on above: Please note: For thi s sample, a platelet estimate is provided rather than a platelet count due to platelet clumping. Other parameters associated with this sample are not affected by platelet clumping. If a more accurate platelet count is required, a redraw of the patient will be necessary. Platelet estimateOrdered By: Jelena Arias on 01-04-2025 Platelets LM Ql (Bld) ADEQUATE ADEQ [facility] Potassium measurement (mass/ volume)Ordered By: Jelena Arias on 01-04-2025 Potassium (Unsp spec) [Mass/Vol] 4.3 mmol/L 3.3-5.1 [facility] Comment on above: Hemolysis present, R esults could be affected. RBC Auto (Bld) [#/Vol]Ordere d By: Jelena Arias on 01-04-2025 RBC (Bld) [#/Vol] 4.87 10*6/uL 4.2-5.4 [facility] Screening total cholesterol/ high density lipoprotein (HDL) cholesterol ratioOrdered By: Jelena Arias on 01-04-2025 Cholesterol.total/Choles terol in HDL [Mass ratio] 2.96 {ratio} [facility] Serum creatinine measurement (mass/volume)Ordered By: Jelena Arias on 01-04-2025 Creatinine [Mass/Vol] 1.00 mg/dL 0.70-1.20 [facility] Serum globulin measurementOr dered By: Jelena Arias on 01-04-2025 Globulin (S) [Mass/Vol] 2.6 g/dL 2.2-4.2 [facility] Serum glucose measurement (m ass/volume)Ordered By: Jelena Arias on 01-04-2025 Glucose [Mass/Vol] 92 mg/dL 70-99 [facility] Serum or plasma alanine pompa otransferase (ALT) measurementOrdered By: Jelena Arias on 01-04-2025 ALT [Catalytic activity/Vol] 20 U/L <35 [facility] Serum or plasma albumin shante urement (mass/volume)Ordered By: Jelena Arias on 01-04-2025 Albumin [Mass/Vol] 4.3 g/dL 3.4-4.8 [facility] Serum or plasma albumin/glob ulin mass ratioOrdered By: Jelena Arias on 01-04-2025 Albumin/Globulin [Mass ratio] 1.6 {ratio} 0.9-2.4 [facility] Serum or plasma alkaline zenia sphatase measurementOrdered By: Jelena Arias on 01-04-2025 ALP [Catalytic activity/Vol] 81 U/L 35-104 [facility] Serum or plasma calcium shante urement (mass/volume)Ordered By: Jelena Arias on 01-04-2025 Calcium [Mass/Vol] 10.3 mg/dL 7.6-11.0 [facility] Serum or plasma cholesterol in HDL measurement (mass/volume)Ordered By: Jelena Arias on 01-04-2025 Cholesterol in HDL [Mass/Vol] 66 mg/dL >40 [facility] Comment on above: National Cholesterol Education Program (NCEP) guidelines:<40 mg/dL: Low HDL-cholesterol (major risk factor for CHD)>= 60 mg/dL: High HDL-cholesterol (negative risk factor for CHD)HDL-cholesterol is affected by a number of factors, e.g. smoking, exercise, hormones, sex and age. Serum or plasma cholesterol measurement (mass/volume)Ordered By: Jelena Arias on 01-04-2025 Cholesterol [Mass/Vol] 196 mg/dL <201 [facility] Comment on above: Cholesterol level, D esirable <200 mg/dLBorderline high cholesterol 200-239 mg/dLHigh cholesterol >=240 mg/dLRecommendations of the NCEP Adult Treatment Panel for the following risk-cutoff thresholds for the [place] population. Serum or plasma ferritin mary kay surement (mass/volume)Ordered By: Jelena Arias on 01-04-2025 Ferritin [Mass/Vol] 207 ng/mL 22-378 [facility] Serum or plasma urea nitroge n measurement (mass/volume)Ordered By: Jelena Arias on 01-04-2025 Urea nitrogen [Mass/Vol] 12 mg/dL 4-19 [facility] Sodium levelOrdered By: Danae Arias on 01-04-2025 Sodium [Moles/Vol] 140 mmol/L 133-145 [facility] Total proteinOrdered By: Magda Arias on 01-04-2025 Protein [Mass/Vol] 6.9 g/dL 5.9-8.4 [facility] Triglycerides measurementOrd ered By: Jelena Arias on 01-04-2025 Triglyceride [Mass/Vol] 138 mg/dL <199 [facility] Comment on above: The drugs N-Acetylcy steine and Metamizole may falsely depress this assay. Normal range: <150 mg/dLBorderline High: 150-199 mg/dLHigh: 200-499 mg/dLVery High: >500 mg/dL Vitamin D,25 Hydroxyon 01-04 Vitamin D 25-OH 65.6 ng/mL Normal 30-100 [facility] Comment on above: Result Comment: Ruthann min D Status Deficiency: <20 ng/mL (50nmol/L) Insufficiency: 20-30 ng/mL (50-75 nmol/L) Sufficiency: 30-100 ng/mL (75-250 nmol/L) Toxicity: >100 ng/mL (>250 nmol/L) Performed By: #### L 500.4050, L500.4100, L503.6550, L503.6150, L506.1001, L100.0100 #### [facility] Laboratory [address] [place], [place], [address] White blood cell (WBC) count Ordered By: Jelena Arias on 01-04-2025 WBC (Bld) [#/Vol] 8.3 10*3/uL 4.4-11.0 [facility] Knee 4 or More Viewson 08-29 Knee 4 or More Views [facility] Imaging Services [address] [place] [address] Knee 4 or More Views MR#: [id number] Acct: [id number] Name: BRYCE GENTILE Rep #: [id number] : 1945 F 78 From: Manuel Alegria i, MD PCP: Dr. Jelena Arias MD Status: REG CLI Study: Knee 4 or More Views Date of Exam: 08/29/24 Exam# [id number] Ordering Dr: Sera Taylor NP, NP PROCEDURE: 08/29/2024 REASON FOR EXAM: KNEE PAIN TECHNIQUE: 4 view(s) of the left knee COMPARISON: None. FINDINGS: Moderate narrowing seen within the medial compartment of the left knee with near kejp-xu-pygc contact. Subchondral sclerosis is seen. Mild narrowing seen within the lateral compartment. Osseous structures are in anatomic alignment. No fracture or dislocation is seen. No suprapatellar joint effusion. RAD/Knee 4 or More Views IMPRESSION: Left knee osteoarthritis, worse within the medial compartment. No fracture or dislocation. No joint effusion. Reading Location: [facility] CC: Sera ROBLES NP-Jesica Taylor; Dr. Jelena Arias MD Resolution Agent: Signed Normal [facility] Carotid Duplex Ultrasoundon 05-15-2024 Carotid Duplex Ultrasound [facility] Cardiovascular Services [address] [place] [address] Carotid Duplex Ultrasound 05/15/24 0803 MR#: [id number] Acct: [id number] Name: BRYCE GENTILE Rep #: [id number] : 1945 78 From: Corby Iniguez MD Attending Dr: Dr. Dre Billingsley MD Status: REG CLI Ordering Dr: Dre Billingsley MD Date: 05/15/24 Location: [facility] Sex: F C Admitted: Reason For Study: [...] the left vertebral artery. Procedure Carotid Duplex 58361. This is a Carotid Duplex examination using [...] CC: Dr. Dre Billingsley MD Date Dictated: 05/15/24802 Date Transcribed: 05/15/241243 Resolution Agent: Signed Normal [facility] Vital Signs Date Time Vital Sign Value Performing Clinician Faci lity 02-05-2025 11:23-0400 Body height 160.02 cm Jelena Arias MD Work Phone: [facility] 02-05-2025 11:23-0400 Body mass index (BMI) [Ratio] 34.2 kg/m2 Jelena Arias MD Work Phone: [facility] 02-05-2025 11:23-0400 Body weight 87.54 kg Jelena Arias MD Work Phone: [facility] 01-18-2025 15:07-0400 Body height 160.02 cm Jelena Arias MD Work Phone: [facility] 01-18-2025 15:07-0400 Body mass index (BMI) [Ratio] 33.8 kg/m2 Jelena Arias MD Work Phone: [facility] 01-18-2025 15:07-0400 Body weight 86.74 kg Jelena Arias MD Work Phone: [facility] 01-15-2025 08:20-0400 Body mass index (BMI) [Ratio] 33.9 kg/m2 Jelena Arias MD Work Phone: [facility] 01-15-2025 08:20-0400 Body weight 86.8 kg Jelena Arias MD Work Phone: [facility] Encounters Encounter Date Encounter Type Care Provider Facility Start: 03-30-2025 ambulatory Chalon Hugo Facility:[place] Start: 03-27-2025 ambulatory Chalon Hugo Facility:[place] Start: 03-21-2025 ambulatory Chalon Hugo Facility:[place] Start: 03-01-2025 End: 03-01-2025 ambulatory Chalon Hugo Facility:[facility] Start: 02-27-2025 ambulatory Chalon Hugo Facility:[place] Start: 02-20-2025 End: 02-20-2025 ambulatory Chalon Hugo Facility:[facility] Start: 02-05-2025 End: 02-05-[address] Will Cheng DO -[facility] Work Phone: Start: 02-05-2025 End: 02-05-2025 ambulatory Jelena Arias MD Work Phone: -[facility] Start: 01-31-2025 End: 01-31-2025 ambulatory Jelena Arias MD Work Phone: [facility] Start: 01-31-2025 End: 01-31-2025 Patient encounter procedure Lisa CHAMBERLAIN -[facility] Work Phone: Start: 01-31-2025 End: 01-31-2025 ambulatory Jelena Arias Facility:[facility] Start: 01-25-2025 End: 01-25-2025 arely Arias MD Work Phone: -MRI - [facility] Start: 01-25-2025 End: 01-25-[address] Will Cheng DO -[facility] Work Phone: Start: 01-25-2025 End: 01-25-2025 ambulatory Jelena Arias Facility:[facility] Start: 01-18-2025 End: 01-18-2025 ambulatory Jelena Arias MD Work Phone: -[facility] Start: 01-18-2025 End: 01-18-2025 Patient encounter procedure Lisa CHAMBERLAIN -[facility] Work Phone: Start: 01-18-2025 End: 01-18-2025 ambulatory Jelena Arias MD Work Phone: -[facility] Start: 01-18-2025 End: 01-18-[address] Jelena Arias MD -[facility] Work Phone: Start: 01-18-2025 End: 01-18-2025 ambulatory Jelena Arias Facility:[facility] Start: 01-15-2025 End: 01-15-[address] Will Cheng DO -[facility] Work Phone: Start: 01-15-2025 End: 01-15-2025 ambulatory Jleena Arias MD Work Phone: -[facility] Start: 01-04-2025 End: 01-04-2025 ambulatory Jelena Arias MD Work Phone: -[facility] [place] Start: 01-04-2025 End: 01-04-[address] Jelena Arias MD -[facility] [place] Work Phone: Start: 01-04-2025 End: 01-04-2025 ambulatory Jelena Arias Facility:[facility] Start: 08-29-2024 End: 08-29-2024 ambulatory [facility] Doctor [facility] Work Phone: Start: 08-29-2024 End: 08-29-2024 Patient encounter procedure Sera FAJARDO -Radiology, [place] Work Phone: Start: 08-29-2024 End: 08-29-2024 ambulatory Jelena Arias Facility:[facility] Start: 05-15-2024 ambulatory Dre Billingsley Facility: [facility] Start: 05-15-2024 Non-patient / Non-visit Dr. Corby grady MD -[facility] Start: 05-15-2024 End: 05-15-[address] Dre Billingsley MD -[facility] Work Phone: Start: 05-15-2024 End: 05-15-2024 ambulatory Dre Mcgeelilibethtre Facility:[facility] Procedures Date Procedure Procedure Detail Performing Clinician Start: 01-31-2025 MRI of cervical spine C wellington Arias MD Work Phone: Start: 01-25-2025 MRI of joint of lowe r extremity Jelena Arias MD Work Phone: Start: 01-18-2025 X-ray of cervical spine Jelena Arias MD Work Phone: Start: 01-18-2025 X-ray of lumbosacral spine Jelena rAias MD Work Phone: Start: 01-18-2025 Dual energy X-ray absorptiometry Jelena Arias MD Work Phone: Start: 01-04-2025 Vitamin D, 25-hydrox y measurement Jelena Arias MD Work Phone: Comment on above: Vitamin D StatusDefi ciency: <20 ng/mL (50nmol/L)Insufficiency: 20-30 ng/mL (50-75 nmol/L)Sufficiency: 30-100 ng/mL (75-250 nmol/L)Toxicity: >100 ng/mL (>250 nmol/L) Start: 01-04-2025 Radex spine lumbosac ral 2/3 views Jelena Arias MD Work Phone: Start: 01-04-2025 X-ray of cervical spine Jelena Arias MD Work Phone: Start: 08-29-2024 X-ray of knee, four or more views [facility] Doctor Plan of Treatment Date Care Activity Detail Author Start: 02-20-2025 MRI of lower extremity Extremity Lower without Contra [facility] Start: 02-20-2025 Patient encounter procedure Registered Clinical -Cat Scan [facility] Work Phone: Start: 01-18-2025 X-ray of cervical spine Cerv Spine 2 or 3 Views [facility] Start: 01-18-2025 X-ray of lumbosacral spine L/S Spine Bending Flex/Ext [facility] Start: 01-18-2025 End: 01-18-2025 Patient encounter procedure -[facility] Work Phone: Start: 01-18-2025 Dual energy X-ray absorptiometry Dexa Bone Density Study [facility] Start: 01-18-2025 Patient encounter procedure Registered Clinical -Outpatient Bone Densitometry Work Phone: Start: 01-15-2025 End: 01-15-2025 Patient encounter procedure Left knee DJD -[facility] Work Phone: MR Cervical spine [facility] MR Lower Extremity Joint [facility] Payers Date Payer Category Payer Self-pay 2024 Private Health Insurance [id number] 2002 Unknown [id number] Medicare [id number] Unknown [id number] Unknown [id number] 2.16.8 40.1.708191.3.579.2.462 Unknown [id number] 2.16.8 40.1.785273.3.579.2.462 Unknown [id number] 2.16.8 40.1.825973.3.579.2.462 Unknown [id number] 2.16.8 40.1.167926.3.579.2.462 Unknown [id number] 2.16.8 40.1.674118.3.579.2.462 Unknown [id number] 2.16.8 40.1.690530.3.579.2.462 Unknown [id number] 2.16.8 40.1.140888.3.579.2.462 Unknown [id number] 2.16.8 40.1.001042.3.579.2.462 Unknown [id number] 2.16.8 40.1.188406.3.579.2.462 Unknown [id number] 2.16.8 40.1.626825.3.579.2.462 Unknown [id number] 2.16.8 40.1.351079.3.579.2.462 Unknown [id number] 2.16.8 40.1.950483.3.579.2.462 Unknown [id number] 2.16.8 40.1.858590.3.579.2.462 Unknown [id number] 2.16.8 40.1.322007.3.579.2.462 Unknown [id number] 2.16.8 40.1.543405.3.579.2.462 Unknown [id number] 2.16.8 40.1.609860.3.579.2.462 Unknown [id number] 2.16.8 40.1.548123.3.579.2.462 Social History Date Type Detail Facility Start: 12-01-2014 End: 01-15-2025 Tobacco smoking status NHIS Never smoked tobacco (finding) [facility] Start: 1945 Sex Assigned At Female W [facility] Sex Female [facility] Clinical Notes 08-30-2024 to 02-05-2025 Note Date & Type Note Facility 02-05-2025 Progress note [facility] 01-20-2025 Radiology Diagnostic study note [facility] Imaging Services [address] [place] [address] Cerv Spine 2 or 3 Views MR#: [id number] Acct: [id number] Name: BRYCE GENTILE Rep #: [id number] : 1945 F 79 From: Junito Valdez DO PCP: Dr. Jelena Arias MD Status: DEP AM B Study:Cerv Spine 2 or 3 Views Date of Exam: 01/18/25 Exam# [id number] Ordering Dr: Ludin Hummel PROCEDURE: CERV SPINE 2 OR 3 VIEWS 01/18/2025 REASON FOR EXAM: ON GOING PAIN TECHNIQUE: Procedure Code: RADSPCL Modality: DX Procedure: CERV SPINE 2 OR 3 VIEWS COMPARISON: Cervical spine study dated 01/04/2025. FINDINGS: Vertebrae: Lateral flexion and extension views of the cervical spine were obtained and demonstrate diffuse osteopenia of the osseous structures. There is no spondylolysis. Mild spondylosis of the cervical spine is noted. Disc spaces: Degenerative disc disease is seen involving the C4-C5, C5-C6, and C6-C7 levels. Alignment: There is approximately 2 mm of anterolisthesis of C3 in relationship to C4. There is no instability on the flexion or extension views. soft tissues: There is no prevertebral soft tissue swelling. RAD/Cerv Spine 2 or 3 Views IMPRESSION: MILD CERVICAL DEGENERATIVE CHANGES. Degenerative disc disease involving C4-C5, C5-C6, and C6-C7. There is approximately 2 mm of anterolisthesis of C3 in relationship to C4. There is no instability on the flexion or extension views. Reading Location: [id number] CC: CINTIA David; Dr. Jelena Arias MD ~ Resolution Agent: Signed [facility] 01-18-2025 Progress note [facility] 01-18-2025 Radiology Diagnostic study note [facility] Imaging Services [address] [place] [address] L/S Spine Bending Flex/Ext MR#: [id number] Acct: [id number] Name: BRYCE GENTILE Rep #: [id number] : 1945 F 79 From: Junito Valdez DO PCP: Dr. Jelena Arias MD Status: DEP AM B Study:L/S Spine Bending Flex/Ext Date of Exam : 01/18/25 Exam# [id number] Ordering Dr: Ludin Hummel PROCEDURE: L/S SPINE BENDING FLEX/EXT 01/18/2025 REASON FOR EXAM: CHRONIC BACK PAIN TECHNIQUE: Procedure Code: RADSPLSFLX Modality: DX Procedure: L/S SPINE BENDING FLEX/EXT COMPARISON: Lumbar spine dated 01/04/2025 FINDINGS: Curvature: There is a normal lordotic lumbar curvature. There is no instabilityon the flexion or extension views. Other findings: Diffuse osteopenia of the lumbar spine and sacrum are noted. There are 5 lumbar-type vertebral bodies below the last set of paired ribs. Again noted is a decrease in height of the L1 vertebral body by approximately 30%. This is probably related to an osteoporotic compression fracture. The remaining vertebral body heights are within normal limits. There is no spondylolisthesis. No sacral fractures are noted. Other: Disc spaces are well-maintained. RAD/L/S Spine Bending Flex/Ext IMPRESSION: Decrease in height of the L1 vertebral body by approximately 30% which is most likely related to an osteoporotic compression fracture. Reading Location: [id number] CC: CINTIA David; Dr. Jelena Arias MD ~ Resolution Agent: Signed [facility] 01-18-2025 Progress note Note Date/Time January 18, 2025 4:01pm [facility] [address] [place] [address] OFFICE VISIT Date of Service: 01/18/25 MR#: [id number] Acct: [id number] Name: BRYCE GENTILE Rep #: [id number] : 1945 Provider: CINTIA David Age/Sex: 79/F Location: [facility] Status: Signed Intake Vital Signs 12/01/14 13:55 01/15/25 08:20 01/18/25 15:07 Height 5 ft 3 in 5 ft 3 in 5 ft 3 in Weight: 191 lb 6 oz 191 lb 4 oz BMI 33.9 33.8 Intake Visit Reasons: LUMBAR SPINE Chief Complaint: Lumbar spine pain Accompanied by: Is patient in pain?: No Allergies penicillin Allergy (Verified 01/18/25 15:11) Rash Medications ?Medication ?Instructions ?Recorded ?Confirmed ?Type alendronate 35 mg tablet 35 mg PO QWEEK 01/15/2512/26 History escitalopram oxalate 20 mg tablet 20 mg PO QDAY 01/18/25 History Have you fallen in the past year?: Yes PFS Surgical History History of nasal surgery History of tubal ligation History of cataract removal with insertion of prosthetic lens History of appendectomy History of right knee joint replacement Social History Smoking Status: Never smoker alcohol intake: current alcohol intake frequency: a few times a week HPI LUMBAR SPINE Details: This documentation accurately reflects the service provided and the decisions made by me, CINTIA David 01/18/25 5874. Part of today?s visit was documentedby Zev Calle MA, acting as scribe. BRYCE GENTILE is a 79 year old F here today for lumbar spine. Patient states that she doesn't have any pain today. She states that the lower back pain is in the middle. Patient states that sometimes she will get pain going down her legs. Shestates that both legs are about the same. Bending forwards increases her pain. Says that she gets pain that goes down the front of the legs and also pain into the reyez. She notices that she also gets pain in the left foot which she does not have in the right foot. Patient states that she is unable to squat. The pain is an achy pain. Patient states that she has had injections in her lower back. She saw Dr. Alfaro in [place] about 3 years ago. The injections did help a lot. They lasted for a couple of years. She [place]. Patient state that the physical therapy did help. She states that she doesn't remember injuring anything. Patient states that her balance is bad. She says that she also has noticed neck pain, especially left-sided neck pain. She does not have any radicular symptoms that extend into her arms. Says that she feels like she has been clumsy for several years and feels like she does drop things out of her hands however she denies any recent change. She also notices that her balance has been worsening. She does think that over the last year it has been worsening. She states that she doesn't use a walker, or a cane. No diabetes, no heart or lung issues, no blood thinners. The patient is seen Dr. Cheng for left knee pain. Says that she does believe that some of her balance issues is related to the knee as this has given out on her in the past. Ortho Exam General General: Yes no acute distress Neurologic: Yes alert and Yes oriented x3 Psychologic: Yes reasonable and appropriate Spine SPINE TESTING CERVICAL THORACIC LUMBAR Musculoskeletal Strength 0=absent - 5=normal Details: Neurological exam of the lower and upper extremities shows 5x5 power. Normal sensations across all dermatomes. No hyperreflexia. Stephen's negative. Some mild midline tenderness, left-sided paraspinal tenderness. Romberg's negative. Tandem gait shows ataxia, uncertain if related to a true balance deficit or due to the left sided knee pain. Coding Level of Care Code Off vis,est,level 4 Diagnoses Degenerative disc disease, cervical M50.30 Lumbar radiculopathy M54.16 Compression fracture of L1 vertebra, initial encounter S32.010A Encounter type: initial encounter Cervical myelopathy G95.9 Assessment and Plan Assessment and Plan (1) Degenerative disc disease, cervical: Status: Acute (2) Lumbar radiculopathy: Status: Acute (3) Compression fracture of L1 lumbar vertebra: Status: Acute Qualifiers: Encounter type: initial encounter Qualified Code(s): S32.010A - Wedge compression fracture of first lumbar vertebra, initial encounter for closed fracture (4) Cervical myelopathy: Orders: Orders L/S Spine Bending Flex/Ext Today M54.9 - Dorsalgia, unspecified Cerv Spine 2 or 3 Views Today M54.2 - Cervicalgia Spine Cervical (Routine) Today G95.9 - Disease of spinal cord, unspecified Plan Obtained reviewed flexion and extension lumbar and cervical x-rays today in the clinic. Independent interpretation of the x-rays was performed. Reviewed priorAP and lateral cervical and lumbar x-rays from January 04, 2025. Lumbar x-rays show no significant degenerative changes, there is a chronic appearing compression deformity at L1. No significant instability on dynamic views. Lumbar x-rays show some facet arthrosis. Cervical x-rays show disc height loss at C5-6, straightening of the normal cervical lordosis, potentially a very mild retrolisthesis of C5 on C6 however this does not appear to change on dynamic views. No recent cervical or lumbar MRI. Reviewed bone density scan from 01/18/2025 which was the day of her appointment, the bone density scan had not yet been read by the time of her appointment however upon interpretation it appears to show osteopenia. Explained imaging findings in detail. At this time due to the patient's historyof neck pain with worsening balance recommend a cervical MRI to assess for cervical myelopathy. Discussed that with functional and neurological deficits of balance loss or dexterity issues the cervical MRI is necessary. Explained the progressive nature of cervical myelopathy. After the cervical MRI if this does not appear to be too bad we can always do more lumbar imaging. Discussed the possibility of more injections with pain management since she has had injections in the past in [place] which was beneficial to her at that time. Patient wishes to proceed with the MRI first before any more injections. The patient also wishes to have her knee fixed before any other surgeries. She willfollow-up after the MRI to review the results. Patient is in agreement. Clinical Quality Measures Falls Risk Screening/Assistive Devices Have you fallen in the past year?: Yes 01/18/25 1645 <Electronically signed by Lisa CHAMBERLAIN> Date _ Lisa CHAMBERLAIN Cosigner Signature: Date (if applicable) CC: Dr. Jelena Arias MD ~ [facility] Work Phone: 1(365) 689-380809-22-2025 Evaluation note* Diagnosis Onset Date Resolution Status Admit Date Left knee DJD acute December 262024 8:08am Other instability, left knee acute January 15, 2025 8:08am Compression fracture of L1 lumbar vertebra acute January 18, 2025 2:52pm Degenerative disc disease, cervical acute January 18, 2025 2:52pm Lumbar radiculopathy acute Dec 2:52pm Cervical myelopathy noneactive 2024 2:52pm [facility] [employer] [facility] Work Phone: 1(958) 899-800509-22-2025 Evaluation note* Diagnosis Onset Date Resolution Status Admit Date Left knee DJD acute December 262024 8:08am Other instability, left knee acute January 15, 2025 8:08am Compression fracture of L1 lumbar vertebra acute January 18, 2025 2:52pm Degenerative disc disease, cervical acute January 18, 2025 2:52pm Lumbar radiculopathy acute Dec 2:52pm Cervical myelopathy noneactive 2024 2:52pm Left knee DJD acute January 11:18am [facility] Work Phone: 1(319) 380-857609-22-2025 Progress [facility] [address] [place] [address] OFFICE VISIT Date of Service: 01/15/25 MR#: [id number] Acct: [id number] Name: BRYCE GENTILE Rep #: [id number] : 1945 Provider: Dr. Joao Cheng, Age/Sex: 79/F Location: [facility] Status: Signed Intake Vital Signs 12/01/14 13:55 01/15/25 08:20 Height 5 ft 3 in 5 ft 3 in Weight: 191 lb 6 oz BMI 33.9 Intake Visit Reasons: LEFT KNEE Accompanied by: Is patient in pain?: Yes Pain scale (1-10): 5 Allergies penicillin Allergy (Verified 01/15/25 08:22) Rash Medications ?Medication ?Instructions ?Recorded ?Confirmed ?Type alendronate 35 mg tablet 35 mg PO QWEEK 01/15/2512/26 History escitalopram oxalate 20 mg tablet 20 mg PO QDAY 01/15/25 History Have you fallen in the past year?: [...] Will Cheng, DO 01/15/25 0749. Part of today?s visit was documented by Regina CRUZ, acting as scribe. BRYCE GENTILE is a 79 year old F new patient here today for left knee pain that she has been having since August. She did get a steroid injection from her PCP in October that gave her some minimal relief fora few weeks. She denies any known injury and denies any previous surgery to this knee. Her pain is anterior medial. When the pain initially started she woke up with her right leg on the left leg thenlater on that morning she went to walk [...] She denies doing PT. She does have 2knee braces at home but neither of them help with the pain or stability. Walking on uneven ground she feels very unstable on the knee. she states it feels like when she tore her meniscus in her otherknee prior to her knee replacement. Ortho Exam [...] changes moderate medial and patellofemoral with spurring andjoint space narrowing Coding Level of Care Code [...] I did review xrays from August today withpatient and advisedher that she does have some mild arthritis with some spurring and likely has a degenerative tear ofher medial meniscus. I spoke withpatient that for this we typically treat it by anti-inflammatoriesand a steroidinjection. Another option would be to get an MRI then decide if we would want togo in arthroscopically or talk about knee replacement. patient wishes to proceedwith an MRI. Follow up after MRI or sooner if pain, swelling, numbness or associated symptoms, or concerns develop. All questions answered. Patient in agreement of plan. Clinical Quality Measures Falls Risk Screening/Assistive Devices Have you fallen in the past year?: No 01/15/25 0953 o DO> Date _ Will Cheng DO [facility] Signature: Date (if applicable) CC: ~ [facility]09-12-2025 Radiology Diagnostic study note [facility] Imaging Services [address] [place], [place] [id number] Lumbar Spine 2 or 3 Views MR#: [id number] Acct: [id number] Name: BRYCE GENTILE Rep #: [id number] : 1945 F 79 From: Vernell Hawkins MD PCP: Dr. Jelena Arias MD Status: REG CL I Study:Lumbar Spine 2 or 3 Views Date of Exam: 01/04/25 Exam# [id number] Ordering Dr: Magda Arias MD PROCEDURE: LUMBAR SPINE 2 OR 3 VIEWS 01/04/2025 REASON FOR EXAM: LOW BACK PAIN TECHNIQUE: Procedure Code: RADSPLL Modality: DX Procedure: LUMBAR SPINE 2 OR 3 VIEWS COMPARISON: NONE. FINDINGS: BONES: Five qvf-rvd-gikdmyp lumbar vertebral bodies. Mild anterior wedge compression deformity of the L1 vertebral body. No focal osseous lesion. Anatomic spinal alignment. DISC/DEGENERATIVE CHANGES: Disc spaces are preserved. SOFT TISSUES: Moderate colonic stool. RAD/Lumbar Spine 2 or 3 Views IMPRESSION: L1 vertebral body compression deformity, age indeterminate. If clinically indicated, a follow-up CTor MRI is suggested to further evaluate. Reading Location: [facility] CC: Dr. Jelena Arias MD ~ Resolution Agent: Signed [facility]09-11-2025 Radiology Diagnostic study note [facility] Imaging Services [address] [place] [id number] Cerv Spine 4 or 5 Views MR#: [id number] Acct: [id number] Name: BRYCE GENTILE Rep #: [id number] : 1945 F 79 From: Kenneth Sanders MD PCP: Dr. Jelena Arias MD Status: REG CL I Study:Cerv Spine 4 or 5 Views Date of Exam: 01/04/25 Exam# [id number] Ordering Dr: Magda Arias MD PROCEDURE: CERV SPINE 4 OR 5 VIEWS 01/04/2025 REASON FOR EXAM: NECK PAIN TECHNIQUE: Procedure Code: RADSPC Modality: DX Procedure: CERV SPINE 4 OR 5 VIEWS COMPARISON: None. FINDINGS: There is no evidence of fracture or subluxation. There is loss of the normal cervical lordosis. There is degenerative disc disease C4-5, C5-6 and C6-7 with narrowing of the intervertebral disc spaces andmarginal osteophytes. There is multilevel facet arthropathy. There is degenerative grade 1 anterolisthesis of C3 on C4. The perivertebral soft tissues are normal. RAD/Cerv Spine 4 or 5 Views IMPRESSION: 1. Multilevel degenerative disc disease with cervical spasm. 2. Degenerative anterolisthesis, C3 on C4. Reading Location: [place] [address] CC: Dr. Jelena Arias MD ~ Resolution Agent: Signed [facility] Work Phone: 1(535) 766-526705-07-2025 Radiology Diagnostic study note [facility] Imaging Services [address] [facility] [place], [place] [id number] Knee 4 or More Views MR#: [id number] Acct: [id number] Name: BRYCE GENTILE Rep #: [id number] : 1945 F 78 From: León Cui MD PCP: Dr. Jelena Arias MD Status: REG CL I Study:Knee 4 or More Views Date of Exam: 08/29/24 Exam# [id number] Ordering Dr: Sera Taylor NP PROCEDURE: 08/29/2024 REASON FOR EXAM: KNEE PAIN TECHNIQUE: 4 view(s) of the left knee COMPARISON: None. FINDINGS: Moderate narrowing seen within the medial compartment of the left knee with [id number] contact. Subchondral sclerosis is seen. Mild narrowing seen within the lateral compartment. Osseous structures are in anatomic alignment. No fracture or dislocation is seen. No suprapatellar joint effusion. RAD/Knee 4 or More Views IMPRESSION: Left knee osteoarthritis, worse within the medial compartment. No fracture or dislocation. No jointeffusion. Reading Location: [facility] CC: Sera ROBLES NP-Jesica Taylor; Dr. Jelena Arias MD ~ Resolution Agent: Signed [facility] note[facility] assessment information available [facility] Work Phone: Evaluation note* Diagnosis Onset Date Resolution Status Admit Date Left knee DJD acute December 262024 8:08am Other instability, left knee acute January 15, 2025 8:08am Compression fracture of L1 lumbar vertebra acute January 18, 2025 2:52pm Degenerative disc disease, cervical acute January 18, 2025 2:52pm Lumbar radiculopathy acute Dec 2:52pm Cervical myelopathy noneactive 2024 2:52pm [facility] Work Phone: Progress note Author Will Cheng [facility] Note Date/Time January 15, 2025 8:42am [facility] [address] [place] [address] [address] [place] [address] OFFICE VISIT Date of Service: 01/15/25 MR#: [id number] Acct: [id number] Name: BRYCE GENTILE Rep #: [id number] : 1945 Provider: Dr. Joao Cheng, Age/Sex: 79/F Location: [facility] Status: Signed Intake Vital Signs 12/01/14 13:55 01/15/25 08:20 Height 5 ft 3 in 5 ft 3 in Weight: 191 lb 6 oz BMI 33.9 Intake Visit Reasons: LEFT KNEE Accompanied by: Is patient in pain?: Yes Pain scale (1-10): 5 Allergies penicillin Allergy (Verified 01/15/25 08:22) Rash Medications ?Medication ?Instructions ?Recorded ?Confirmed ?Type alendronate 35 mg tablet 35 mg PO QWEEK 01/15/2512/26 History escitalopram oxalate 20 mg tablet 20 mg PO QDAY 01/15/25 History Have you fallen in the past year?: [...] Will Cheng, DO 01/15/25 0749. Part of today?s visit was documented by Regina CRUZ, acting [...] I did review xrays from August today withpatient and advised her that she does have some mild arthritis with some spurring and likely has a degenerative tear of her medial meniscus. I spoke withpatient that for this we typically treat it by anti-inflammatories and a steroidinjection. Another option would be to get an MRI then decide if we would want togo in arthroscopically or talk about knee replacement. patient wishes to proceedwith an MRI. Follow up after MRI or sooner if pain, swelling, numbness or associated symptoms, or concerns develop. All questions answered. Patient in agreement of plan. Clinical Quality Measures Falls Risk Screening/Assistive Devices Have you fallen in the past year?: No 01/15/25 0953 <Electronically signed by Will gallego DO> Date _ Will Cheng DO Cosigner Signature: Date (if applicable) CC: ~ [facility] Work Phone: Progress note Author Will Cheng [facility] Note Date/Time February 05, 2025 1 1:49am [facility] [address] [place] [id number] OFFICE VISIT Date of Service: 02/05/25 MR#: [id number] Acct: [id number] Name: BRYCE GENTILE Rep #: [id number] : 1945 Provider: Dr. Joao Cheng DO Age/Sex: 79/F Location: [facility] Status: Signed Intake Vital Signs 01/18/25 15:07 02/05/25 11:23 Height 5 ft 3 in 5 ft 3 in Weight: 191 lb 4 oz 193 lb BMI 33.8 34.2 Intake Visit Reasons: LEFT KNEE Chief Complaint: left knee pain Accompanied by: Is patient in pain?: No Allergies penicillin Allergy (Verified 02/05/25 11:21) Rash Medications ?Medication ?Instructions ?Recorded ?Confirmed ?Type alendronate 35 mg tablet 35 mg PO QWEEK 01/15/2501/24 History escitalopram oxalate 20 mg tablet 20 mg PO QDAY 02/05/25 History Have you fallen in the past year?: Yes PFSH Surgical History History of nasal surgery History of tubal ligation History of cataract removal with insertion of prosthetic lens History of appendectomy History of right knee joint replacement Social History Smoking Status: Never smoker alcohol intake: current alcohol intake frequency: a few times a week HPI LEFT KNEE Details: This documentation accurately reflects the service provided and the decisions made by me, Dr. Will Cheng, DO 02/05/25 0902. Part of today?s visit was documented by Adele Diaz RN, acting as scribe. BRYCE GENTILE is a 79 year old F here today for left knee MRI review follow-up; continues to have left knee pain patient states pain with Ambulation, keeping knee straight states at night the pain in the knee will throb. 01/15/2025 visit:79 year old F new patient here today for left knee pain that shehas been having since August. She did get [...] some steps and felt a painful pop inthe knee. She feels that their is no stability in the knee and has to be very mindful of how she walks. She denies painful mechanical symptoms since. She doesget shooting pain through the anterior medial compartment. At night if she triedto lift up her leg she gets increased pain in the knee. She did have xrays of the knee on 08/29/24. She does take Advil for the pain as needed. She denies doingPT. She does have 2 knee braces at home but neither of them help with the pain or stability. Walking on uneven ground she feels very unstable on the knee. shestates it feels like when she tore her meniscus in her other knee prior to her knee replacement. Plan:Patient is here today for left knee pain. I did review xrays from August todaywith patient and advised her that she does have some mild arthritis with some spurring and likely has a degenerative tear of her medial meniscus. I spoke withpatient that for this we typically treat it by anti-inflammatories and a steroidinjection. Another option would be to get an MRI then decide if we would want togo in arthroscopically or talk about knee replacement. patient wishes to proceedwith an MRI. Follow up after MRI or sooner if pain, swelling, numbness or associated symptoms, or concerns develop. All questions answered. Patient in agreement of plan. Ortho Exam General General: Yes no acute distress Neurologic: Yes alert and Yes oriented x3 Psychologic: Yes reasonable and appropriate Right Knee Patella Translation: 1 KNEE: flexion 120 Left Knee Skin/Wound: No ecchymosis, No erythema and Yes swelling Homans Sign: No Knee ROM: Yes ROM-Extension -20 to 0 (-8) and Yes ROM-Flexion 0-140 (108) Examination: Yes med jt line tenderness, Yes Lat jt line tenderness and No TTP Pes Anserine Stability: NML: Anterior Drawer, NML: Posterior Drawer, NML: Valgus 0, NML: Valgus 30, NML: Varus 0 and NML: Varus 30 Patella Translation: 1 Patella Grind: Yes KNEE: no effusion medial click with lateral gillian pain with medial gillian Supplemental Info 01/25/2025 MRI left knee: Medial meniscus: High-grade attenuating incomplete radial tear of the far posterior horn of the medial meniscus near the root attachment, resulting in extrusion of the body, with intrasubstance degeneration. Chondral degeneration in all three compartments. Areas to bone in the patellofemoral and likely the medial compartments. Small effusion. Moderate prepatellar edema/bursitis. Plica. Popliteal cyst and cyst leakage. Mild blunting and fraying of the free edge of the lateral meniscus. Mild tendinosis. 08/29/2024 x-ray left knee: Degenerative changes moderate medial and patellofemoral with spurring and joint space narrowing Coding Level of Care Code Off vis,est,level 4 Diagnoses Primary osteoarthritis of left knee M17.12 Osteoarthritis type: primary Assessment and Plan Assessment and Plan (1) Left knee DJD: Status: Acute Qualifiers: Osteoarthritis type: primary Qualified Code(s): M17.12 - Unilateral primary osteoarthritis, left knee Plan I reviewed pt's MRI in detail. The MRI showed the arthritis is worse than the x- ray portrayed it also showed a medial meniscus tear. The non surgical options at this point would include another steroid injection, gel injections, PT, braces, glucosamine and chondroitin, NSAID's. The surgical options would includea knee arthroscopy versus left total knee arthroplasty. We discussed risk benefits and alternatives of both options in detail. The concern with knee arthroscopy would be the severity of her knee arthrosis causing residual pain after surgery, she feels as though her quality of life is decreasing therefore she would like to proceed with the right total knee arthroplasty for more definitive and predictive outcome. I discussed the surgery in detail including risks, benefits and alternatives. I also discussed the option of Iovera and gaveher a pamphlet regarding this, if her insurance covers it she will be agreeable to this. Follow up two weeks post operatively or sooner if pain, swelling, numbness or associated symptoms, or concerns develop. All questions answered. Patient in agreement of plan. She will need medical clearance as well as CT scan tentative surgery date March 27, 2025 same-day surgery. She will need to stop all NSAIDs 7 days prior to surgery. Clinical Quality Measures Falls Risk Screening/Assistive Devices Have you fallen in the past year?: Yes 02/05/25 1222 <Electronically signed by Will gallego DO> Date _ Will Cheng DO Cosigner Signature: Date (if applicable) CC: ~ [facility] Work Phone: Reason for referral (narrative)No reason for referral information [facility] Phone: Chief Complaint and Reason for Visit Chief Complaint Admit Date Retinal ischemia May 15, 2024 7 :56am LEFT KNEE PAIN August 29, 2024 11:11a m Chief Complaint Admit Date low back pain neck pain January 04, 2025 10:11am LEFT KNEE January 15, 2025 8:08am osteoporosis January 18, 2025 7:10am LUMBAR SPINE January 18, 2025 2:52pm Room 2 January 18, 2025 3:18pm Reason for Visit Admit Date Left knee DJD January 15, 2025 8:08am Other instability, left knee December [id number] 8:08am Compression fracture of L1 lumbar verteb ra January 18, 2025 2:52pm Degenerative disc disease, cervical Sept [id number] 2:52pm Lumbar radiculopathy January 18 2:52pm Cervical myelopathy January 18, 2025 2:52pm Chief Complaint Admit Date low back pain neck pain January 04, 2025 10:11am LEFT KNEE January 15, 2025 8:08am osteoporosis January 18, 2025 7:10am LUMBAR SPINE January 18, 2025 2:52pm Room 2 January 18, 2025 3:18pm left knee pain January 25, 2025 4: 04pm WORSENING BALANCE, NECK PAIN January 2:58pm LEFT KNEE February 05, 2025 1 1:18am Reason for Visit Admit Date Left knee DJD January 15, 2025 8:08am Other instability, left knee December [id number] 8:08am Compression fracture of L1 lumbar verteb ra January 18, 2025 2:52pm Degenerative disc disease, cervical Sept [id number] 2:52pm Lumbar radiculopathy January 18 2:52pm Cervical myelopathy January 18, 2025 2:52pm Left knee DJD February 05, 2025 1 1:18am Chief Complaint Admit Date low back pain neck pain January 04, 2025 10:11am LEFT KNEE January 15, 2025 8:08am osteoporosis January 18, 2025 7:10am LUMBAR SPINE January 18, 2025 2:52pm Room 2 January 18, 2025 3:18pm left knee pain January 25, 2025 4: 04pm WORSENING BALANCE, NECK PAIN January 2:58pm LEFT KNEE February 05, 2025 1 1:18am TEMPLATING LT TKA February 20, 2025 1 :53pm Summary Purpose Family History No Family History Records Found Advance Directives No Advanced Directives Records Found Additional Source Comments Care Teams (unrecognized sec tion and content) Team Status: Active Member Role Status Dates Out of [facility] Doctor Family Provider Active Jelena Arias MD Primary Care Provider Active Team Status: Inactive Member Role Status Dates Out of [facility] Doctor Primary Care Provider Active Start: May 15, 2024 End: May 15, 2024 Dr. Dre Billingsley MD Attending Provider Active Start: May 15, 2024 End: May 15, 2024 Dr. Dre Billingsley MD Referring Provider Active Start: May 15, 2024 End: May 15, 2024 Team Status: Active Member Role Status Dates Out of [facility] Doctor Primary Care Provider Active Start: May 15, 2024 Dr. Corby Iniguez MD Attending Provider Active S tart: May 15, 2024 Dr. Dre Billingsley MD Referring Provider Active Start: May 15, 2024 Team Status: Inactive Member Role Status Dates Jelena Arias MD Primary Care Provider Active St art: August 29, 2024 End: August 29, 2024 Sera Taylor APPLICATION SECURITY ARCHITECT, APPLICATION SECURITY ARCHITECT-C Attending Provider Active Start: August 29, 2024 End: August 29, 2024 Sera Taylor APPLICATION SECURITY ARCHITECT, APPLICATION SECURITY ARCHITECT-C Referring Provider Active Start: August 29, 2024 End: August 29, 2024 Team Status: Active Member Role/Relationship Status Joe Arias MD Primary care physician Active Team Status: Inactive Member Role/Relationship Status Joe Arias MD Primary care physician Active S tart: January 04, 2025 End: January 04, 2025 Jelena Arias MD Attending physician Active Star t: January 04, 2025 End: January 04, 2025 Jelena Arias MD Referring Provider Active Start : January 04, 2025 End: January 04, 2025 Team Status: Inactive Member Role/Relationship Status Joe Arias MD Primary care physician Active S tart: January 15, 2025 End: January 15, 2025 Jelena Arias MD Referring Provider Active Start : January 15, 2025 End: January 15, 2025 Dr. Will Cheng DO Attending physician Active Start: January 15, 2025 End: January 15, 2025 Team Status: Active Member Role/Relationship Status Joe Arias MD Primary care physician Active S tart: January 18, 2025 Jelena Arias MD Attending physician Active Star t: January 18, 2025 Jelena Arias MD Referring Provider Active Start : January 18, 2025 Team Status: Inactive Member Role/Relationship Status Joe Arias MD Primary care physician Active S tart: January 18, 2025 End: January 18, 2025 Jelena Arias MD Referring Provider Active Start : January 18, 2025 End: January 18, 2025 CINTIA David Attending physician Active Sta rt: January 18, 2025 End: January 18, 2025 Team Status: Inactive Member Role/Relationship Status Joe Arias MD Primary care physician Active S tart: January 18, 2025 End: January 18, 2025 Dr. Carlos Tapia MD Attending physician Active Start: January 18, 2025 End: January 18, 2025 Team Status: Inactive Member Role/Relationship Status Joe Arias MD Primary care physician Active S tart: January 18, 2025 End: January 18, 2025 Jelena Arias MD Attending physician Active Star t: January 18, 2025 End: January 18, 2025 Jelena Arias MD Referring Provider Active Start : January 18, 2025 End: January 18, 2025 Team Status: Inactive Member Role/Relationship Status Joe Arias MD Primary care physician Active S tart: January 25, 2025 End: January 25, 2025 Dr. Will Cheng DO Attending physician Active Start: January 25, 2025 End: January 25, 2025 Dr. Will Cheng DO Referring Provider Active Start: January 25, 2025 End: January 25, 2025 Team Status: Inactive Member Role/Relationship Status Joe Arias MD Primary care physician Active S tart: January 31, 2025 End: January 31, 2025 CINTIA David Attending physician Active Sta rt: January 31, 2025 End: January 31, 2025 CINTIA David Referring Provider Active Star t: January 31, 2025 End: January 31, 2025 Team Status: Inactive Member Role/Relationship Status Dates Jelena Arias MD Primary care physician Active S tart: February 05, 2025 End: February 05, 2025 Jelena Arias MD Referring Provider Active Start : February 05, 2025 End: February 05, 2025 Dr. Will Cheng DO Attending physician Active Start: February 05, 2025 End: February 05, 2025 Team Status: Active Member Role/Relationship Status Dates Jelena Arias MD Primary care physician Active S tart: February 20, 2025 Dr. Will Cheng DO Attending physician Active Start: February 20, 2025 Dr. Will Cheng DO Referring Provider Active Start: February 20, 2025 Goals (unrecognized section and content) Goals may be documented in a n alternate sectionGoals may be documented in an alternate sectionGoals may be documented in an alternate sectionGoals may be documented in an alternate sectionGoals may be documented in an alternate sectionGoals may be documented in an alternate sectionGoals may be documented in an alternate sectionGoals may be documented in an alternate sectionGoals may be documented in an alternate section INFORMATION SOURCE (unrecogn ized section and content) DATE CREATED AUTHOR 03/04/2025 [facility] FOR RECORDS PERTAINING TO PATIENTS WHO ARE [...] BE BASED ON THE PRIMARY CLINICAL RECORDS. [employer] provides no warranty or guarantee of the accuracy or completeness of information in this document.
--- NOTE | 2025-03-21 06:58 | ECHOD_ITS ---
Reason For Study Reason For Study: PRE OP, ABNORMAL EKG Procedure This was a 2D Doppler, Color Flow transthoracic echocardiogram. Exam performed in department. Left Ventricle Normal size and thickness. The left ventricular ejection fraction is 60 %. Normal diastology for age. Right Ventricle Normal right ventricle. Atria The left and right atria are normal. Mitral Valve Trivial mitral valve insufficiency. Tricuspid Valve Trivial tricuspid valve insufficiency. Normal pulmonary artery pressure. Aortic Valve Trisinus/trileaflet aortic valve. Mild (1+) aortic valve insufficiency. Pulmonic Valve The pulmonic valve is not well visualized. Great Vessels Normal sized aortic root. Pericardium/Pleural No pericardial effusion. MMode/2D Measurements & Calculations LVIDd: 4.2 cm IVSd: 0.77 cm asc Aorta Diam: 3.2 cm LVIDs: 2.4 cm LVPWd: 1.1 cm RVDd: 2.6 cm FS: 44.1 % LAV(MOD-bp): 33.9 ml LVAd ap4: 17.4 cm2 LVAd ap2: 18.6 cm2 LAV(MOD-bp) Indexed: 17.8 ml/m2 LVLd ap4: 6.6 cm LVLd ap2: 7.2 cm LAV(MOD-sp2): 30.1 ml EDV(MOD-sp4): 38.4 ml EDV(MOD-sp2): 39.6 ml LAV(MOD-sp4): 36.9 ml EDV(sp4-el): 38.9 ml EDV(sp2-el): 40.9 ml LVAs ap4: 7.9 cm2 LVAs ap2: 8.3 cm2 LVLs ap4: 4.8 cm LVLs ap2: 5.6 cm ESV(MOD-sp4): 11.0 ml ESV(MOD-sp2): 10.6 ml ESV(sp4-el): 11.1 ml ESV(sp2-el): 10.4 ml EF(MOD-sp4): 71.3 % EF(MOD-sp2): 73.3 % EF(sp4-el): 71.5 % SV(MOD-sp4): 27.4 ml SV(MOD-sp2): 29.1 ml SV(sp4-el): 27.8 ml SI(MOD-sp4): 14.4 ml/m2 SI(MOD-sp2): 15.3 ml/m2 LA A4 area: 15.1 cm2 LA dimension(2D): 3.0 cm RA A4 area: 11.2 cm2 TAPSE: 1.8 cm Time Measurements MV dec time: 0.23 sec Doppler Measurements & Calculations MV E max jatinder: 70.7 cm/sec Lat Peak E' Jatinder: 10.3 cm/sec Med Peak E' Jatinder: 7.9 cm/sec MV A max jatinder: 74.7 cm/sec E/E' lat: 6.9 E/E' med: 9.0 MV E/A: 0.95 Ao V2 max: 139.3 cm/sec AI max jatinder: 366.5 cm/sec MV dec slope: 313.1 cm/sec2 Ao max P.8 mmHg AI max P.7 mmHg Ao V2 mean: 94.1 cm/sec Ao mean P.1 mmHg AI dec slope: 160.6 cm/sec2 Ao V2 VTI: 36.2 cm AI P1/2t: 668.4 msec AV (velocity ratio): 0.83 LV V1 max: 116.5 cm/sec PA V2 max: 68.1 cm/sec TR max jatinder: 159.1 cm/sec LV V1 max P.4 mmHg TR max P.1 mmHg LV V1 mean P.0 mmHg LV V1 mean: 80.4 cm/sec LV V1 VTI: 30.0 cm ECHO/Echo Complete Interpretation Summary The left ventricular ejection fraction is 60 %. Mild (1+) aortic valve insufficiency. Ordering Physician: Jelena Arias Referring Physician: Jelena Arias Performed By: Pérez Fontanez RDCS
--- NOTE | 2025-03-21 12:07 | STRESSREP ---
Stress Test Report Date: 03/21/2025 Procedure: Pharmacologic stress nuclear imaging study Indications: Abnormal ECG Consent: Per the patient Procedure: The patient underwent pharmacologic (Regadenoson 0.4mg ) evaluation with a peak heart rate of 67 beats per minute (47%predicted maximal heart rate) and a peak blood pressure of 128/74 mmHg. The baseline ECG demonstrated sinus rhythm. The peak pharmacologic ECG did not show any ischemic changes. There were no cardiac dysrhythmias pretest, during pharmacologic infusion, or recovery. There was no complaint of chest discomfort during pharmacologic infusion or recovery. The patient was injected with 12.0 millicuries of technetium 99m Cardiolite and subsequently rest SPECT Cardiolite nuclear imaging was obtained in the horizontal long, vertical long, and short axis views. The patient underwent pharmacologic (Regadenoson) evaluation. The patient was injected with 35.0 millicuries of technetium 99m Cardiolite and subsequently stress SPECT Cardiolite nuclear imaging was obtained in the horizontal long, vertical long, and short axis views. A gated Cardiolite study at peak stress was obtained. The examination was stopped secondary to completion of protocol. Rest and stress SPECT Cardiolite nuclear imaging status post realignment, normalization, and attenuation correction demonstrate no fixed or reversible perfusion defects. There is end systolic thickening and brightening. The gated Cardiolite study demonstrates myocardial thickening and inward wall motion. The reported LVEF is 86%. Impression: 1. Pharmacologic (Regadenoson) evaluation 2. Peak pharmacologic ECG with no ischemic changes. 3. There were no cardiac dysrhythmias pretest, during pharmacologic infusion, or recovery. 5. Rest and stress SPECT Cardiolite nuclear imaging demonstrate relative uniform tracer uptake and myocardial perfusion appearing within normal limits. 6. The gated Cardiolite study reports an LVEF of 86%. This note was generated with [employer] software. It may contain incorrect words, spelling, and punctuation that were not noted in checking the note before signing.
== END | disposition home or self-care (01) ==
PROVIDERS: PCP Family Medicine; Referring Provider Family Medicine; Visit Provider Family Medicine
DX: R94.31 Abnormal electrocardiogram [ECG] [EKG] (principal)
CPT/HCPCS: 78452; 93017; 93306; A9500; A4216; J2785

== ENCOUNTER → 2025-03-26 | Outpatient (CLI) | payer MEDICARE, SELFPAY ==
--- NOTE | 2025-03-26 15:43 | MRI_ITS ---
PROCEDURE: SPINE LUMBAR (ROUTINE) 03/26/2025 REASON FOR EXAM: LOW BACK PAIN, BILAT LEG PAIN, L1 COMPRESSION FX TECHNIQUE: Procedure Code: MRISPL Modality: MR Procedure: SPINE LUMBAR (ROUTINE) COMPARISON: None available. FINDINGS: For the purposes of this report, the most caudal rectangular vertebral body will be designated L5. The next most caudal trapezoidal shaped vertebral body will be designated S1. The intervening disc at the lumbosacral angle is designated L5-S1. The normal lumbar lordosis is maintained. Chronic compression deformity of L1 vertebral body. Grade 1 L3-L4 anterolisthesis. The lumbar bone marrow signal is within normal limits. Multilevel disc desiccation. Small Schmorl's node at superior endplate of T12 vertebral body and inferior endplate of L1. There is no evidence of signal abnormality in the imaged distal spinal cord. The conus medullaris terminates at the level of L1-L2. T12-L1: No significant spinal canal stenosis or neural foraminal narrowing. L1-L2: No significant spinal canal stenosis or neural foraminal narrowing. L2-L3: No significant spinal canal stenosis or neural foraminal narrowing. L3-L4: Uncovering of the disc, bilateral facet arthrosis, and ligamentum flavum hypertrophy. Mild spinal canal stenosis. No significant neural foraminal narrowing. L4-L5: No disc bulge or herniation. Bilateral facet arthrosis and ligamentum flavum hypertrophy contribute to mild spinal canal stenosis. No significant neural foraminal narrowing. L5-S1: No significant spinal canal stenosis or neural foraminal narrowing. Fatty atrophy of the posterior paraspinal muscles. Multiple bilateral parapelvic renal cysts. MRI/Spine Lumbar (Routine) IMPRESSION: Lumbar spondylosis without high-grade spinal canal or neural foraminal stenosis . Chronic L1 vertebral body compression fracture. Reading Location: [id number]
--- OUTSIDE RECORDS SUMMARY | 2025-03-26 19:50 | XMS RPT_ITS | CCD ---
Author Organization [facility] Care Team Providers Care Concession Attendant Name Role Phone [facility] Doctor, Out of Primary Care Provider José Miguel Billingsley MD, Dr. Erickson Attending Provider Analilia PINA, Dr. Erickson Referring Provider Hira PINA, Dr. Tavarez Attending Provider 1([facility])[phone] Jelena Arias MD Primary Care Provider 1([facility])[phone] Brandon TURKEY CLEANER-CSera Attending Provider Brandon TURKEY CLEANER-[employer]era Referring Provider Jelena Arias MD Primary Care Physician Jelena Arias MD Attending Physician Jelena Arias MD Referring Provider 1([facility])[phone] Will Cheng DO Attending Physician Lisa Parsons Attending Physician 1([facility])[phone] Regina PINA, Dr. Gonzalez Attending Physician 1([facility])[phone] Dr. Will Cheng DO Referring Provider Lisa Parsons Referring Provider 1([facility])[phone] Hugo, Chalon Primary Care Unavailable Will [...] Will Referring Unavailable Chenevey, Dre Referring Unavailable [facility] Doctor, Out of Primary Care Unavailable Corby Iniguez Attending Unavailable Chenevey, Dre Referring Unavailable Chenevey, Dre Attending Unavailable [facility] Doctor, Out of Primary Care Unavailable Hugo, Chalon Primary Care Unavailable Brandon TURKEY CLEANER, Sera Referring Unavailable Brandon TURKEY CLEANER, Sera Attending Unavailable Hugo, Chalon Attending Unavailable Hugo, Chalon Primary Care Unavailable Hugo, Chalon Referring Unavailable Hugo, Chalon Primary Care Unavailable Ryanso, Will Attending Unavailable Lvruso, Will Referring Unavailable Hugo, Chalon Primary Care Unavailable Hugo, Chalon Referring Unavailable Hugo, Chalon Attending Unavailable Allergies Allergy Classification Reported Allergen(s) Allergy Type Date of Onset Reaction(s) Facility (1 source) Penicillin Drug Allergy 03-01-2025 [facility] Repository Medications Current Medications Medication Drug Class(es) Dates Sig (Normalized) Sig (Original) alendronic acid 35 mg oral tablet (8 sources) Bisphosphonate Start: 01-15-2025 take 1 tablet by mouth every week Start: 01-15-2025 take 1 tablet by mouth every w [place] escitalopram 20 mg oral tablet (8 sources) [...] Facility Orthopedic Visit Reporton Orthopedic Visit Report [facility] [address] [place] [address] OFFICE VISIT Date of Service: 03/01/25 MR#: [id number] Acct: [id number] Name: KRUPABRYCE K Rep #: [id number] : 1945 Provider: CINTIA David Age/Sex: 79/F [...] lower back. She saw Dr. Alfaro in [place] about 3 years ago. The injections did help a lot. They lasted for a couple of years. She states that she did physical therapy in [place]. Patient state that the physical therapy did [...] Status: A (more content not included)... Normal [facility] CBC W/Diff, Automatedon 11-0 -2024 Absolute Lymph 1.70 X10 3/uL Normal 0.83-4.51 [facility] Comment on above: Performed By: #### L 501.4021, L503.7505, L100.0100 ####[facility] [address] [place], [address] Absolute Neut 4.7 X10 3/uL Normal 2.0-7.7 [facility] Comment on above: Performed By: #### L 501.4021, L503.7505, L100.0100 ####[facility] [address] [place], [address] Basophils/100 WBC (Bld) 0.5 % Normal 0-1 [facility] Comment on above: Performed By: #### L 501.4021, L503.7505, L100.0100 ####[facility] [address] [place], [address] Eosinophils/100 WBC (Bld) 2.6 % Normal 0-5 [facility] Comment on above: Performed By: #### L 501.4021, L503.7505, L100.0100 ####[facility] [address] [place], [address] Erythrocyte distribution width (RBC) [Ratio] 12.3 % Normal 11.6-14.6 [facility] Comment on above: Performed By: #### L 501.4021, L503.7505, L100.0100 ####[facility] [address] [place], [address] Hematocrit (Bld) [Volume fraction] 45.2 % Normal 37-47 [facility] Comment on above: Performed By: #### L 501.4021, L503.7505, L100.0100 ####[facility] [address] [place], [address] Hemoglobin (Bld) [Mass/Vol] 16.0 g/dL High 12.0-15.0 [facility] Comment on above: Performed By: #### L 501.4021, L503.7505, L100.0100 ####[facility] [address] [place], [address] IG% 0.300 Normal 0.0-0.9 [facility] Comment on above: Result Comment: IG% - Immature Granulocytes (promyelocytes, myelocytes and metamyelocytes) > 1% indicates that a LEFT SHIFT is Present. Performed By: #### L 501.4021, L503.7505, L100.0100 ####[facility] [address] [place], [address] Lymphocytes/100 WBC (Bld) 23.3 % Normal 19-41 [facility] Comment on above: Performed By: #### L 501.4021, L503.7505, L100.0100 ####[facility] [address] [place], [address] MCH (RBC) [Entitic mass] 33.9 pg High 27.0-32.0 [facility] Comment on above: Performed By: #### L 501.4021, L503.7505, L100.0100 ####[facility] [address] [place], [address] MCHC (RBC) [Mass/Vol] 35.4 g/dL Normal 32-36 [facility] Comment on above: Performed By: #### L 501.4021, L503.7505, L100.0100 ####[facility] [address] [place], [address] MCV (RBC) [Entitic vol] 95.8 fL Normal 81-99 [facility] Comment on above: Performed By: #### L 501.4021, L503.7505, L100.0100 ####[facility] [address] [place], [address] Monocytes/100 WBC (Bld) 9.3 % Normal 0-10 [facility] Comment on above: Performed By: #### L 501.4021, L503.7505, L100.0100 ####[facility] [address] [place], [address] Neutrophils/100 WBC (Bld) 64.0 % Normal 47-70 [facility] Comment on above: Performed By: #### L 501.4021, L503.7505, L100.0100 ####[facility] [address] [place], [address] Nucleated RBC (Bld) [#/Vol] 0 10*3/uL Normal 0-5 [facility] Comment on above: Performed By: #### L 501.4021, L503.7505, L100.0100 ####[facility] [address] [place], [address] Platelet mean volume (Bld) [Entitic vol] 10.4 fL Normal 6.2-12.0 [facility] Comment on above: Performed By: #### L 501.4021, L503.7505, L100.0100 ####[facility] [address] [place], [address] Platelets (Bld) [#/Vol] 240 10*3/uL Normal 150-450 [facility] Comment on above: Performed By: #### L 501.4021, L503.7505, L100.0100 ####[facility] [address] [place], [address] RBC (Bld) [#/Vol] 4.72 10*6/uL Normal 4.2-5.4 [facility] Comment on above: Performed By: #### L 501.4021, L503.7505, L100.0100 ####[facility] [address] [place], [address] RDW SD 43.3 fl Normal 35.1-43.9 [facility] Comment on above: Performed By: #### L 501.4021, L503.7505, L100.0100 ####[facility] [address] [place], [address] WBC (Bld) [#/Vol] 7.3 10*3/uL Normal 4.4-11.0 [facility] Comment on above: Performed By: #### L 501.4021, L503.7505, L100.0100 ####[facility] [address] [place], [address] L501.4021on 02-27-2025 Trop T High Sen 8 ng/L Normal <=14 [facility] Comment on above: Performed By: #### L 501.4021, L503.7505, L100.0100 ####[facility] [address] [place], [address] Pro- Brain NATRIURETIC PEPTI Danny 02-27-2025 Natriuretic peptide B (Bld) [Mass/Vol] 94 pg/mL Normal <=1800 [facility] Comment on above: Result Comment: Hear t Failure Unlikely: < 300 pg/mL Heart Failure Likely < 50 Years: > 450 pg/mL 50-75 Years: > 900 pg/mL >75 Years: > 1800 pg/mL Performed By: #### L 501.4021, L503.7505, L100.0100 ####[facility] [address] [place], [address] Extremity Lower without Cont raon 02-20-2025 Extremity Lower without Contra [facility] Imaging Services [address] [place] [address] Extremity Lower without Contra MR#: [id number] Acct: [id number] Name: BRYCE GENTILE Rep #: [id number] : 1945 F 79 From: Humberto Nunez MD PCP: Dr. 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 [facility] CC: Dr. Jelena Arias MD; Dr. Will Cheng DO Nanny Babysitter: Signed Normal [facility] Orthopedic Visit Reporton Orthopedic Visit Report [facility] [address] [place] [address] OFFICE VISIT Date of Service: 02/05/25 MR#: [id number] Acct: [id number] Name: BRYCE GENTILE Rep #: [id number] : 1945 Provider: Dr. Will moreno DO Age/Sex: 79/F [facility] [facility] Status: Signed Intake Vital Signs 01/18/25 15:07 [...] the l (more content not included)... Normal [facility] Magnetic resonance imaging r eportOrdered By: Corby Blake on 02-02-2025 Study report [facility] Imaging Services [address] [place], [place] [address] Spine Cervical (Routine) MR#: [id number] Acct: [id number] Name: BRYCE GENTILE Rep #: [id number] : 1945 F 79 From: Jannie Blake MD PCP: Dr. Jelena Arias MD Status: REG CL I Study:Spine Cervical (Routine) Date of Exam: 01/31/25 Exam# [id number] Ordering Dr: Ludin Hummel PA PROCEDURE: SPINE [...] C4-5: Grade 1 anterolisthesis. Broad-based disc bulge. Oyrx-av-rsvprchw spinalstenosis and mild cord effacement. Moderately severe [...] foraminal stenosis. T3-4: Left facet arthrosis and nsmx-lk-cpjxaxmj left foraminal stenosis. No other significant disc [...] CINTIA David; Dr. Jelena Arias MD ~ Nanny Babysitter: Signed [facility] Spine Cervical (Routine)on Spine Cervical (Routine) [facility] Imaging Services [address] [place], [place] [address] Spine Cervical (Routine) MR#: [id number] Acct: [id number] Name: BRYCE GENTILE Rep #: [id number] : 1945 F 79 From: Corby blanco MD PCP: Dr. Jelena Arias MD Status: REG CLI Study: Spine Cervical (Routine) Date of Exam: Exam# [id number] Ordering Dr: Lisa Hummel PROCEDURE: SPINE CERVICAL [...] C4-5: Grade 1 anterolisthesis. Broad-based disc bulge. Wkcp-dp-midpjkqt spinal stenosis and mild cord effacement. Moderately [...] foraminal stenosis. T3-4: Left facet arthrosis and rhkx-op-ldqytbjl left foraminal stenosis. No other significant disc [...] CC: CINTIA David; Dr. Jelena Arias MD Nanny Babysitter: Signed Normal [facility] Magnetic resonance imaging r eportOrdered By: Corby Blake on 01-30-2025 Study report [facility] Imaging Services [address] [place] [address] Lower Ext Joint Only (Routine) MR#: [id number] Acct: [id number] Name: BRYCE GENTILE Rep #: [id number] : 1945 F 79 From: Jannie Blake MD PCP: Dr. Jelena Arias MD Status: REG CL I Study:Lower Ext Joint Only (Routine) Date of Exam: 01/25/25 Exam# [id number] Ordering Dr: Will Cheng DO PROCEDURE: LOWER [...] Arias MD; Dr. Will Cheng DO ~ Nanny Babysitter: Signed [facility] Lower Ext Joint Only (Routin e)on 01-25-2025 Lower Ext Joint Only (Routine) [facility] Imaging Services [address] [place] [address] Lower Ext Joint Only (Routine) MR#: [id number] Acct: [id number] Name: BRYCE GENTILE Rep #: [id number] : 1945 F 79 From: Corby blanco MD PCP: Dr. Jelena Arias MD Status: REG CLI Study: Lower Ext Joint Only (Routine) Date of Exam: Exam# [id number] Ordering Dr: Will Cheng DO PROCEDURE: LOWER [...] Jelena Arias MD; Dr. Will Cheng DO Nanny Babysitter: Signed Normal [facility] Bone density reportOrdered B y: Luis Sanders on 01-22-2025 Study report Skeletal system DXA [facility] Imaging Services [address] [place], [place] [address] Dexa Bone Density Study MR#: [id number] Acct: [id number] Name: BRYCE GENTILE Rep #: [id number] : 1945 F 79 From: Kenneth Sanders MD PCP: Dr. Jelena Arias MD Status: REG CL I Study:Dexa Bone Density Study Date of Exam: 01/18/25 Exam# [id number] Ordering Dr: Magda Arias MD PROCEDURE: DEXA [...] Recommend follow-up as clinically warranted. Reading Location: [place] [address] CC: Dr. Jelena Arias MD ~ Nanny Babysitter: Signed [facility] Work Phone: Cerv Spine 2 or 3 Viewson Cerv Spine 2 or 3 Views [facility] Imaging Services [address] [place] [address] Cerv Spine 2 or 3 Views MR#: [id number] Acct: [id number] Name: BRYCE GENTILE Rep #: [id number] : 1945 F 79 From: France Gallego PCP: Dr. Jelena Arias MD Status: DEP AMB Study: Cerv Spine 2 or 3 Views Date of Exam: 01/18/25 Exam# [id number] Ordering Dr: Lisa Hummel PROCEDURE: CERV SPINE [...] the flexion or extension views. Reading Location: [id number] CC: CINTIA David; Dr. Jelena Arias MD Nanny Babysitter: Signed Normal [facility] Dexa Bone Density Studyon Dexa Bone Density Study [facility] Imaging Services [address] [place] [address] Dexa Bone Density Study MR#: [id number] Acct: [id number] Name: BRYCE GENTILE Rep #: [id number] : 1945 F 79 From: Luis Sanders MD PCP: Dr. Jelena Arias MD Status: REG CLI Study: Dexa Bone Density Study Date of Exam: 01/18/25 Exam# [id number] Ordering Dr: Jelena Arias MD PROCEDURE: DEXA [...] Recommend follow-up as clinically warranted. Reading Location: [place] [address] CC: Dr. Jelena Arias MD Nanny Babysitter: Signed Normal [facility] L/S Spine Bending Flex/[place] 01-18-2025 L/S Spine Bending Flex/Ext [facility] Imaging Services [address] [place] [address] L/S Spine Bending Flex/Ext MR#: [id number] Acct: [id number] Name: BRYCE GENTILE Rep #: [id number] : 1945 F 79 From: France Gallego PCP: Dr. Jelena Arias MD Status: DEP AMB Study: L/S Spine Bending Flex/Ext Date of Exam: 01/18 Exam# [id number] Ordering Dr: Lisa Hummel PROCEDURE: L/S SPINE [...] to an osteoporotic compression fracture. Reading Location: [facility] CC: CINTIA David; Dr. Jelena Arias MD Nanny Babysitter: Signed Normal [facility] Orthopedic Visit Reporton Orthopedic Visit Report [facility] [address] [place] [address] OFFICE VISIT Date of Service: 01/18/25 MR#: [id number] Acct: [id number] Name: BRYCE GENTILE Rep #: [id number] : 1945 Provider: CINTIA David Age/Sex: 79/F [place] [facility] Status: Signed Intake Vital Signs 12/01/14 13:55 [...] decisions made by me, CINTIA David 01/18/25 9771. Part of today???s visit was documented by [...] lower back. She saw Dr. Alfaro in [place] about 3 years ago. The injections did help a lot. They lasted for a couple of years. She states that she did physical therapy in [place]. Patient state that the physical therapy did [...] extension lumbar (more content not included)... Normal [facility] Orthopedic Visit Reporton Orthopedic Visit Report [facility] [address] [place] [address] OFFICE VISIT Date of Service: 01/15/25 MR#: [id number] Acct: [id number] Name: BRYCE GENTILE Rep #: [id number] : 1945 Provider: Dr. Will moreno DO Age/Sex: 79/F Location[place] [facility] Status: Signed Intake Vital Signs 12/01/14 13:55 [...] Signature: Date (more content not included)... Normal [facility] Absolute lymphocyte countOrd ered By: Jelena Arias on 01-04-2025 Lymphocytes Auto (Unsp spec) [#/Vol] 1.81 10*3/uL 0.83-4.51 [facility] Absolute neutrophil countOrd ered By: Jelena Arias on 01-04-2025 Neutrophils (Bld) [#/Vol] 5.3 10*3/uL 2.0-7.7 [facility] Anion gap in Serum or Plasma Ordered By: Jelena Arias on 01-04-2025 Anion gap [Moles/Vol] 14 mmol/L 5-15 [facility] Automated lymphocyte count a s percentage of total leukocytesOrdered By: Jelena Arias on 01-04-2025 Lymphocytes/100 WBC Auto (Unsp spec) 21.7 % 19-41 [facility] BUN/creatinine ratioOrdered By: Jelena Arias on 01-04-2025 Urea nitrogen/Creatinine [Mass ratio] 12.2 mg/mg 10-20 [facility] Basophil percentageOrdered B y: Jelena Arias on 01-04-2025 Basophils/100 WBC (Bld) 0.7 % 0-1 [facility] Bilirubin, totalOrdered By: Jelena Arias on 01-04-2025 Bilirubin [Mass/Vol] 0.82 mg/dL 0.00-1.30 [facility] CBC W/Diff, Automatedon 12-25 PLT EST ADEQUATE Normal ADEQ [facility] Comment on above: Performed By: #### L 500.4050, L500.4100, L503.6550, L503.6150, L506.1001, L100.0100 ####[facility] [address] [place], [address] Calculated very low density lipoprotein (VLDL) cholesterol measurementOrdered By: Jelena Arias on 01-04-2025 Calculated very low density lipoprotein (VLDL) cholesterol measurement 28 mg/dL 5-40 [facility] Carbon dioxide, total [Moles /volume] in Central venous bloodOrdered By: Jelena Arias on 01-04-2025 CO2 [Moles/Vol] 23.7 mmol/L 21.0-32.0 [facility] Cerv Spine 4 or 5 Viewson Cerv Spine 4 or 5 Views [facility] Imaging Services [address] [place], [place] [address] Cerv Spine 4 or 5 Views MR#: [id number] Acct: [id number] Name: BRYCE GENTILE Rep #: [id number] : 1945 F 79 From: Luis Sanders MD PCP: Dr. Jelena Arias MD Status: REG CLI Study: Cerv Spine 4 or 5 Views Date of Exam: 01/04/25 Exam# [id number] Ordering Dr: Jelena Arias MD PROCEDURE: CERV [...] Degenerative anterolisthesis, C3 on C4. Reading Location: [place] [address] CC: Dr. Jelena Arias MD Nanny Babysitter: Signed Normal [facility] Chloride assayOrdered By: Marleni Arias on 01-04-2025 Chloride [Moles/Vol] 103 mmol/L 98-108 [facility] Comprehensive Metabolic Prof ilon 01-04-2025 Albumin [Mass/Vol] 4.3 g/dL Normal 3.4-4.8 [facility] Comment on above: Performed By: #### L 500.4050, L500.4100, L503.6550, L503.6150, L506.1001, L100.0100 ####[facility] [address] [place], [address] Albumin/Globulin [Mass ratio] 1.6 {ratio} Normal 0.9-2.4 [facility] Comment on above: Performed By: #### L 500.4050, L500.4100, L503.6550, L503.6150, L506.1001, L100.0100 ####[facility] [address] [place], [address] ALK PHOS 81 U/L Normal 35-104 [facility] Comment on above: Performed By: #### L 500.4050, L500.4100, L503.6550, L503.6150, L506.1001, L100.0100 ####[facility] [address] [place], [address] ALT [Catalytic activity/Vol] 20 U/L Normal <=34 [facility] Comment on above: Performed By: #### L 500.4050, L500.4100, L503.6550, L503.6150, L506.1001, L100.0100 ####[facility] [address] [place], [address] AST [Catalytic activity/Vol] 30 U/L Normal <=31 [facility] Comment on above: Result Comment: Hemo lysis present, Results??could be affected. ?? Performed By: #### L 500.4050, L500.4100, L503.6550, L503.6150, L506.1001, L100.0100 ####[facility] [address] [place], [address] Bilirubin [Mass/Vol] 0.82 mg/dL Normal 0.00-1.30 [facility] Comment on above: Performed By: #### L 500.4050, L500.4100, L503.6550, L503.6150, L506.1001, L100.0100 ####[facility] [address] [place], [address] BUN/CRE 12.2 RATIO Normal 10-20 [facility] Comment on above: Performed By: #### L 500.4050, L500.4100, L503.6550, L503.6150, L506.1001, L100.0100 ####[facility] [address] [place], [address] Calcium [Mass/Vol] 10.3 mg/dL Normal 7.6-11.0 [facility] Comment on above: Performed By: #### L 500.4050, L500.4100, L503.6550, L503.6150, L506.1001, L100.0100 ####[facility] [address] [place], [address] Chloride [Moles/Vol] 103 mmol/L Normal 98-108 [facility] Comment on above: Performed By: #### L 500.4050, L500.4100, L503.6550, L503.6150, L506.1001, L100.0100 ####[facility] [address] [place], [address] CO2 [Moles/Vol] 23.7 mmol/L Normal 21.0-32.0 [facility] Comment on above: Performed By: #### L 500.4050, L500.4100, L503.6550, L503.6150, L506.1001, L100.0100 ####[facility] [address] [place], [address] Creatinine [Mass/Vol] 1.00 mg/dL Normal 0.70-1.20 [facility] Comment on above: Performed By: #### L 500.4050, L500.4100, L503.6550, L503.6150, L506.1001, L100.0100 ####[facility] [address] [place], [address] GAP 14 Normal 5-15 [facility] Comment on above: Performed By: #### L 500.4050, L500.4100, L503.6550, L503.6150, L506.1001, L100.0100 ####[facility] [address] [place], [address] GFR/1.73 sq M.predicted among non-blacks MDRD (S/P/Bld) [Vol rate/Area] 58 mL/min/{1.73_m2} Low >60 [facility] Comment on above: Result Comment: mL/m in/1.73m2 CKD-EPI Creatinine Equation (2020) Performed By: #### L 500.4050, L500.4100, L503.6550, L503.6150, L506.1001, L100.0100 ####[facility] [address] [place], [address] Globulin (S) [Mass/Vol] 2.6 g/dL Normal 2.2-4.2 [facility] Comment on above: Performed By: #### L 500.4050, L500.4100, L503.6550, L503.6150, L506.1001, L100.0100 ####[facility] [address] [place], [address] Glucose [Mass/Vol] 92 mg/dL Normal 70-99 [facility] Comment on above: Performed By: #### L 500.4050, L500.4100, L503.6550, L503.6150, L506.1001, L100.0100 ####[facility] [address] [place], [address] Potassium [Moles/Vol] 4.3 mmol/L Normal 3.3-5.1 [facility] Comment on above: Result Comment: Hemo lysis present, Results??could be affected. ?? Performed By: #### L 500.4050, L500.4100, L503.6550, L503.6150, L506.1001, L100.0100 ####[facility] [address] [place], [address] Sodium [Moles/Vol] 140 mmol/L Normal 133-145 [facility] Comment on above: Performed By: #### L 500.4050, L500.4100, L503.6550, L503.6150, L506.1001, L100.0100 ####[facility] [address] [place], [address] T PROT 6.9 g/dL Normal 5.9-8.4 [facility] Comment on above: Performed By: #### L 500.4050, L500.4100, L503.6550, L503.6150, L506.1001, L100.0100 ####[facility] [address] [place], [address] Urea nitrogen [Mass/Vol] 12 mg/dL Normal 4-19 [facility] Comment on above: Performed By: #### L 500.4050, L500.4100, L503.6550, L503.6150, L506.1001, L100.0100 ####[facility] [address] [place], [place], [address] Eosinophil percentageOrdered By: Jelena Hugo on 01-04-2025 Eosinophils/100 WBC (Bld) 2.4 % 0-5 [facility] Erythrocyte distribution wid th ratioOrdered By: [facility] Hospital[facility] Hugo on 01-04-2025 Erythrocyte distribution width (RBC) [Ratio] 12.2 % 11.6-14.6 [facility] Erythrocyte distribution wid th standard deviationOrdered By: [facility] Hospital[facility] Hugo on 01-04-2025 Erythrocyte distribution width (RBC) [Ratio] 43.6 fl 35.1-43.9 [facility] Ferritinon 01-04-2025 Ferritin [Mass/Vol] 207 ng/mL Normal 22-378 [facility] Comment on above: Performed By: #### L 500.4050, L500.4100, L503.6550, L503.6150, L506.1001, L100.0100 #### [facility] [address]. [place], [place], [address] Glomerular filtration rate ( GFR) estimation/1.73 sq m using serum, plasma, or whole bOrdered By: Jelena Arias on 01-04-2025 GFR/1.73 sq M.predicted among non-blacks MDRD (S/P/Bld) [Vol rate/Area] 58 mL/min/{1.73_m2} Low >60 [facility] Comment on above: mL/min/1.73m2 CKD-EP I Creatinine Equation (2020) Hematocrit Auto (Bld) [Volum e fraction]Ordered By: Jelena Arias on 01-04-2025 Hematocrit (Bld) [Volume fraction] 47.1 % High 37-47 [facility] Hemoglobin measurementOrdere d By: Jelena Arias on 01-04-2025 Hemoglobin (Bld) [Mass/Vol] 16.3 g/dL High 12.0-15.0 [facility] Immature granulocytes/100 WB C Auto (Bld)Ordered By: Jelena Arias on 01-04-2025 Immature granulocytes/100 WBC (Bld) 0.200 % 0.0-0.9 [facility] Comment on above: IG% - Immature Granu locytes (promyelocytes, myelocytes and metamyelocytes) > 1% indicates that a LEFT SHIFT is Present. Ironon 01-04-2025 Iron [Mass/Vol] 171 ug/dL High 50-170 [facility] Comment on above: Performed By: #### L 500.4050, L500.4100, L503.6550, L503.6150, L506.1001, L100.0100 ####[facility] [address] [place], [place], [address] Iron measurement (mass/mass) Ordered By: Jelena Arias on 01-04-2025 Iron (Unsp spec) [Mass/Mass] 171 ug/dL High 50-170 [facility] LDL calc ser/plasOrdered By: Jelena Arias on 01-04-2025 Cholesterol in LDL [Mass/Vol] 102 mg/dL [facility] Comment on above: Eukpdtlqcv=586-744 m g/dL & Higher Vrbs=971 mg/dL or greaterFriedwald Equation for LDL-C Laboratory - Chemistry and C hemistry - challengeOrdered By: Jelena Arias on 01-04-2025 AST [Catalytic activity/Vol] 30 U/L <32 [facility] Comment on above: Hemolysis present, R esults could be affected. Lipid Profileon 01-04-2025 CHOL:HDL 2.96 Normal [facility] Comment on above: Performed By: #### L 500.4050, L500.4100, L503.6550, L503.6150, L506.1001, L100.0100 #### [facility] [address] [place], [place], [address] Cholesterol [Mass/Vol] 196 mg/dL Normal <=200 [facility] Comment on above: Result Comment: Chol esterol level, Desirable <200 mg/dL Borderline high cholesterol 200-239 mg/dL High cholesterol >=240 mg/dL Recommendations of the NCEP Adult Treatment Panel for the following risk-cutoff thresholds for the [place] population. Performed By: #### L 500.4050, L500.4100, L503.6550, L503.6150, L506.1001, L100.0100 #### [facility] [address] [place], [address] Cholesterol in HDL [Mass/Vol] 66 mg/dL Normal [facility] Comment on above: Result Comment: Angie onal Cholesterol Education Program (NCEP) guidelines: <40 mg/dL: Low HDL-cholesterol (major risk factor for CHD) >= 60 mg/dL: High HDL-cholesterol (negative risk factor for CHD) HDL-cholesterol is affected by a number of factors, e.g. smoking, exercise, hormones, sex and age. Performed By: #### L 500.4050, L500.4100, L503.6550, L503.6150, L506.1001, L100.0100 #### [facility] [address] [place], [address] Cholesterol in LDL [Mass/Vol] 102 mg/dL Normal [facility] Comment on above: Result Comment: Bord mwlxgh=332-168 mg/dL Higher Lxiy=533 mg/dL or greater Friedwald Equation for LDL-C Performed By: #### L 500.4050, L500.4100, L503.6550, L503.6150, L506.1001, L100.0100 #### [facility] [address] [place], [address] Cholesterol in VLDL [Mass/Vol] 28 mg/dL Normal 5-40 [facility] Comment on above: Performed By: #### L 500.4050, L500.4100, L503.6550, L503.6150, L506.1001, L100.0100 #### [facility] [address] [place], [address] Triglyceride [Mass/Vol] 138 mg/dL Normal [facility] Comment on above: Result Comment: The drugs N-Acetylcysteine and Metamizole may falsely depress this assay. Normal range: <150 mg/dL Borderline High: 150-199 mg/dL High: 200-499 mg/dL Very High: >500 mg/dL Performed By: #### L 500.4050, L500.4100, L503.6550, L503.6150, L506.1001, L100.0100 #### [facility] [address] [place], [address] Lumbar Spine 2 or 3 Viewson 01-04-2025 Lumbar Spine 2 or 3 Views [facility] Imaging Services [address] [place] [address] Lumbar Spine 2 or 3 Views MR#: [id number] Acct: [id number] Name: BRYCE GENTILE Rep #: [id number] : 1945 F 79 From: Medina Hawkins MD PCP: Dr. Jelena Arias MD Status: REG CLI Study: Lumbar Spine 2 or 3 Views Date of Exam: Exam# [id number] Ordering Dr: Jelena Arias MD PROCEDURE: LUMBAR SPINE 2 OR 3 VIEWS 01/04/2025 REASON FOR EXAM: LOW BACK PAIN TECHNIQUE: Procedure Code: RADSPLL Modality: DX Procedure: LUMBAR SPINE 2 OR 3 VIEWS COMPARISON: NONE. FINDINGS: BONES: Five amz-evw-pyegvml lumbar vertebral bodies. Mild anterior wedge compression deformity of the L1 vertebral body. No focal osseous lesion. Anatomic spinal alignment. DISC/DEGENERATIVE CHANGES: Disc spaces are preserved. SOFT TISSUES: Moderate colonic stool. RAD/Lumbar Spine 2 or 3 Views IMPRESSION: L1 vertebral body compression deformity, age indeterminate. If clinically indicated, a follow-up CT or MRI is suggested to further evaluate. Reading Location: [id number] CC: Dr. Jelena Arias MD Nanny Babysitter: Signed Normal [facility] MCV (mean corpuscular volume ) determinationOrdered By: Jelena rAias on 01-04-2025 MCV (RBC) [Entitic vol] 96.7 fL 81-99 [facility] Mean corpuscular hemoglobin (MCH) determinationOrdered By: Jelena Arias on 01-04-2025 MCH (RBC) [Entitic mass] 33.5 pg High 27.0-32.0 [facility] Mean corpuscular hemoglobin concentration (MCHC) determinationOrdered By: Jelena Arias on 01-04-2025 MCHC (RBC) [Mass/Vol] 34.6 g/dL 32-36 [facility] Mean platelet volume determi nationOrdered By: Jelena Arias on 01-04-2025 Platelet mean volume (Bld) [Entitic vol] 11.3 fL 6.2-12.0 [facility] Monocyte percentageOrdered B y: Jelena Arias on 01-04-2025 Monocytes/100 WBC (Bld) 11.4 % High 0-10 [facility] Neutrophil percentageOrdered By: Jelena Arias on 01-04-2025 Neutrophils/100 WBC (Bld) 63.6 % 47-70 [facility] Nucleated red blood cell per centageOrdered By: Jelena Arias on 01-04-2025 Nucleated RBC/100 WBC (Bld) [Ratio] 0 % 0-5 [facility] Platelet countOrdered By: Marleni Arias on 01-04-2025 Platelet count See comment 150-450 [facility] Comment on above: Please note: For thi [...] 01-04-2025 Platelets LM Ql (Bld) ADEQUATE ADEQ [facility] Potassium measurement (mass/ volume)Ordered By: Jelena Arias on 01-04-2025 Potassium (Unsp spec) [Mass/Vol] 4.3 mmol/L 3.3-5.1 [facility] Comment on above: Hemolysis present, R esults could be affected. RBC Auto (Bld) [#/Vol]Ordere d By: Jelena Arias on 01-04-2025 RBC (Bld) [#/Vol] 4.87 10*6/uL 4.2-5.4 [facility] Screening total cholesterol/ high density lipoprotein (HDL) cholesterol ratioOrdered By: Jelena Arias on 01-04-2025 Cholesterol.total/Choles terol in HDL [Mass ratio] 2.96 {ratio} [facility] Serum creatinine measurement (mass/volume)Ordered By: Jelena Arias on 01-04-2025 Creatinine [Mass/Vol] 1.00 mg/dL 0.70-1.20 [facility] Serum globulin measurementOr dered By: Jelena Arias on 01-04-2025 Globulin (S) [Mass/Vol] 2.6 g/dL 2.2-4.2 [facility] Serum glucose measurement (m ass/volume)Ordered By: Jelena Arias on 01-04-2025 Glucose [Mass/Vol] 92 mg/dL 70-99 [facility] Serum or plasma alanine pompa otransferase (ALT) measurementOrdered By: Jelena Arias on 01-04-2025 ALT [Catalytic activity/Vol] 20 U/L <35 [facility] Serum or plasma albumin shante urement (mass/volume)Ordered By: Jelena Arias on 01-04-2025 Albumin [Mass/Vol] 4.3 g/dL 3.4-4.8 [facility] Serum or plasma albumin/glob ulin mass ratioOrdered By: Jelena Arias on 01-04-2025 Albumin/Globulin [Mass ratio] 1.6 {ratio} 0.9-2.4 [facility] Serum or plasma alkaline zenia sphatase measurementOrdered By: Jelena Arias on 01-04-2025 ALP [Catalytic activity/Vol] 81 U/L 35-104 [facility] Serum or plasma calcium shante urement (mass/volume)Ordered By: Jelena Arias on 01-04-2025 Calcium [Mass/Vol] 10.3 mg/dL 7.6-11.0 [facility] Serum or plasma cholesterol in HDL measurement (mass/volume)Ordered By: Jelena Arias on 01-04-2025 Cholesterol in HDL [Mass/Vol] 66 mg/dL >40 [facility] Comment on above: National Cholesterol Education Program (NCEP) guidelines:<40 mg/dL: Low HDL-cholesterol (major risk factor for CHD)>= 60 mg/dL: High HDL-cholesterol (negative risk factor for CHD)HDL-cholesterol is affected by a number of factors, e.g. smoking, exercise, hormones, sex and age. Serum or plasma cholesterol measurement (mass/volume)Ordered By: Jelena Arias on 01-04-2025 Cholesterol [Mass/Vol] 196 mg/dL <201 [facility] Comment on above: Cholesterol level, D esirable <200 mg/dLBorderline high cholesterol 200-239 mg/dLHigh cholesterol >=240 mg/dLRecommendations of the NCEP Adult Treatment Panel for the following risk-cutoff thresholds for the [place] population. Serum or plasma ferritin mary kay surement (mass/volume)Ordered By: Jelena Arias on 01-04-2025 Ferritin [Mass/Vol] 207 ng/mL 22-378 [facility] Serum or plasma urea nitroge n measurement (mass/volume)Ordered By: Jelena Arias on 01-04-2025 Urea nitrogen [Mass/Vol] 12 mg/dL 4-19 [facility] Sodium levelOrdered By: Danae Arias on 01-04-2025 Sodium [Moles/Vol] 140 mmol/L 133-145 [facility] Total proteinOrdered By: Magda Arias on 01-04-2025 Protein [Mass/Vol] 6.9 g/dL 5.9-8.4 [facility] Triglycerides measurementOrd ered By: Jelena Arias on 01-04-2025 Triglyceride [Mass/Vol] 138 mg/dL <199 [facility] Comment on above: The drugs N-Acetylcy steine and Metamizole may falsely depress this assay. Normal range: <150 mg/dLBorderline High: 150-199 mg/dLHigh: 200-499 mg/dLVery High: >500 mg/dL Vitamin D,25 Hydroxyon 01-04 Vitamin D 25-OH 65.6 ng/mL Normal 30-100 [facility] Comment on above: Result Comment: Ruthann min D Status Deficiency: <20 ng/mL (50nmol/L) Insufficiency: 20-30 ng/mL (50-75 nmol/L) Sufficiency: 30-100 ng/mL (75-250 nmol/L) Toxicity: >100 ng/mL (>250 nmol/L) Performed By: #### L 500.4050, L500.4100, L503.6550, L503.6150, L506.1001, L100.0100 #### [facility] [address] [place], [place], [address] White blood cell (WBC) count Ordered By: Jelena Arias on 01-04-2025 WBC (Bld) [#/Vol] 8.3 10*3/uL 4.4-11.0 [facility] Knee 4 or More Viewson 08-29 Knee 4 or More Views [facility] Imaging Services [address] [place] [address] Knee 4 or More Views MR#: [id number] Acct: [id number] Name: BRYCE GENTILE Rep #: [id number] : 1945 F 78 From: Manuel Alegria i, MD PCP: Dr. Jelena Arias MD Status: REG CLI Study: Knee 4 or More Views Date of Exam: 08/29/24 Exam# [id number] Ordering Dr: Sera Taylor NP, NP PROCEDURE: 08/29/2024 REASON FOR EXAM: KNEE PAIN TECHNIQUE: 4 view(s) of the left knee COMPARISON: None. FINDINGS: Moderate narrowing seen within the medial compartment of the left knee with near ddsm-jj-tfup contact. Subchondral sclerosis is seen. Mild narrowing seen within the lateral compartment. Osseous structures are in anatomic alignment. No fracture or dislocation is seen. No suprapatellar joint effusion. RAD/Knee 4 or More Views IMPRESSION: Left knee osteoarthritis, worse within the medial compartment. No fracture or dislocation. No joint effusion. Reading Location: SE[facility]STIAN CC: Sera ROBLES NP-Jesica Taylor; Dr. Jelena Arias MD Nanny Babysitter: Signed Normal [facility] Carotid Duplex Ultrasoundon 05-15-2024 Carotid Duplex Ultrasound [facility] Services [address] [place] [address] Carotid Duplex Ultrasound 05/15/24 0803 MR#: [id number] Acct: [id number] Name: BRYCE GENTILE Rep #: [id number] : 1945 78 From: Corby Iniguez MD Attending Dr: Dr. Dre Billingsley MD Status: REG CLI Ordering Dr: Dre Billingsley MD Date: 05/15/24 Location: [facility] Sex: F C Admitted: Reason For [...] the left vertebral artery. Procedure Carotid Duplex 29049. This is a Carotid Duplex examination using B-mode, color flow and specral Doppler. Exam performed in department. VL/Carotid Duplex Ultrasound Interpretation Summary Mild (<50%) stenosis right extracranial internal carotid. Mild (<50%) stenosis left extracranial internal carotid. Patent and antegrade vertebrals bilaterally. Ordering Physician: rDe Billingsley Referring Physician: Serena King M.D. Performed By: Nathalia Alan RVT and Student 05/15/24 1244 Date Corby Iniguez MD CC: Dr. Dre Billingsley MD Date Dictated: 05/15/24802 Date Transcribed: 05/15/241243 Nanny Babysitter: Signed Normal [facility] Vital Signs Date Time Vital Sign Value Performing Clinician Faci lity 02-05-2025 11:23-0400 Body height 160.02 cm Jelena Arias MD Work Phone: [facility] 02-05-2025 11:23-0400 Body mass index (BMI) [Ratio] 34.2 kg/m2 Jelena Arias MD Work Phone: [facility] 02-05-2025 11:23-0400 Body weight 87.54 kg Jelena Arais MD Work Phone: [facility] 01-18-2025 15:07-0400 Body height 160.02 cm Jelena Arias MD Work Phone: [facility] 01-18-2025 15:07-0400 Body mass index (BMI) [Ratio] 33.8 kg/m2 Jelena Arias MD Work Phone: [facility] 01-18-2025 15:07-0400 Body weight 86.74 kg Jelena Arias MD Work Phone: [facility] 01-15-2025 08:20-0400 Body mass index (BMI) [Ratio] 33.9 kg/m2 Jelena Arias MD Work Phone: [facility] 01-15-2025 08:20-0400 Body weight 86.8 kg Jelena Arias MD Work Phone: [facility] Encounters Encounter Date Encounter Type Care Provider Facility Start: 03-30-2025 ambulatory Chalon Hugo Facility:[facility] Start: 03-27-2025 ambulatory Chalon Hugo Facility:[facility] Start: 03-21-2025 ambulatory Chalon Hugo Facility:[facility] Start: 03-01-2025 End: 03-01-2025 ambulatory Chalon Hugo [facility] Start: 02-27-2025 ambulatory Chalon Huog Facility:[facility] Start: 02-20-2025 End: 02-20-2025 ambulatory Chalon Hugo Facility:[facility] Start: 02-05-2025 End: 02-05-[address] Will Cheng DO -[facility] Work Phone: Start: 02-05-2025 End: 02-05-2025 ambulatory Jelena Arias MD Work Phone: -[facility] Start: 01-31-2025 End: 01-31-2025 ambulatory Jelena Arias MD Work Phone: [facility] Start: 01-31-2025 End: 01-31-2025 Patient encounter procedure Lisa CHAMBERLAIN -[facility] Work Phone: Start: 01-31-2025 End: 01-31-2025 ambulatory Jelena Arias Facility:[facility] Start: 01-25-2025 End: 01-25-2025 arely Arias MD Work Phone: -MRI - [facility] Start: 01-25-2025 End: 01-25-[address] Will Cheng DO -[facility] Work Phone: Start: 01-25-2025 End: 01-25-2025 ambulatory Jelena Arias Facility:[facility] Start: 01-18-2025 End: 01-18-2025 ambulatory Jelena Arias MD Work Phone: -[facility] Start: 01-18-2025 End: 01-18-2025 Patient encounter procedure Lisa CHAMBERLAIN -[facility] Work Phone: Start: 01-18-2025 End: 01-18-2025 ambulatory Jelena Arias MD Work Phone: -[facility] Start: 01-18-2025 End: 01-18-[address] Jelena Arias MD -[facility] Work Phone: Start: 01-18-2025 End: 01-18-2025 ambulatory Jelena Arias Facility:[facility] Start: 01-15-2025 End: 01-15-[address] Will Cheng DO -[facility] Work Phone: Start: 01-15-2025 End: 01-15-2025 ambulatory Jelena Arias MD Work Phone: -[facility] Start: 01-04-2025 End: 01-04-2025 ambulatory Jelena Arias MD Work Phone: -[facility] [place] Start: 01-04-2025 End: 01-04-[address] Jelena Arias MD -[facility] [place] Work Phone: Start: 01-04-2025 End: 01-04-2025 ambulatory Jelena Arias Facility:[facility] Start: 08-29-2024 End: 08-29-2024 ambulatory Out of Town Doctor [facility] Work Phone: Start: 08-29-2024 End: 08-29-2024 Patient encounter procedure Sera FAJARDO -Radiology, [place] Work Phone: Start: 08-29-2024 End: 08-29-2024 ambulatory Jelena Arias Facility:[facility] Start: 05-15-2024 ambulatory Dre Billingsley Facility: [facility] Start: 05-15-2024 Non-patient / Non-visit Dr. Corby grady MD -[facility] Start: 05-15-2024 End: 05-15-[address] Dre Billingsley MD -[facility] Work Phone: Start: 05-15-2024 End: 05-15-2024 ambulatory Dre Mcgeelilibethtre Facility:[facility] Procedures Date Procedure Procedure Detail Performing Clinician Start: 01-31-2025 MRI of cervical spine C wellington Arias MD Work Phone: Start: 01-25-2025 MRI of joint of lowe r extremity Jelena Arias MD Work Phone: Start: 01-18-2025 X-ray of cervical spine Jelena Arias MD Work Phone: Start: 01-18-2025 X-ray of lumbosacral spine Jelena Arias MD Work Phone: Start: 01-18-2025 Dual energy [...] of lower extremity Extremity Lower without Contra [facility] Start: 02-20-2025 Patient encounter procedure Registered Clinical -Cat Scan [facility] Work Phone: Start: 01-18-2025 X-ray of cervical spine Cerv Spine 2 or 3 Views [facility] Start: 01-18-2025 X-ray of lumbosacral spine L/S Spine Bending Flex/Ext [facility] Start: 01-18-2025 End: 01-18-2025 Patient encounter procedure -[facility] Work Phone: Start: 01-18-2025 Dual energy X-ray absorptiometry Dexa Bone Density Study [facility] Start: 01-18-2025 Patient encounter procedure Registered Clinical -[facility] Work Phone: Start: 01-15-2025 End: 01-15-2025 Patient encounter procedure Left knee DJD -[facility] Work Phone: MR Cervical spine [facility] MR Lower Extremity Joint [facility] Payers Date Payer Category Payer Self-pay 2024 Private Health Insurance [id number] 2002 Unknown [id number] Medicare [id number] Unknown [id number] Unknown [id number] 2.16.8 [id number] Unknown [id number] 2.16.8 40.1.246979.3.579.2.462 Unknown [id number] 2.16.8 40.1.461629.3.579.2.462 Unknown [id number] 2.16.8 40.1.754082.3.579.2.462 Unknown [id number] 2.16.8 40.1.319070.3.579.2.462 Unknown [id number] 2.16.8 40.1.173596.3.579.2.462 Unknown [id number] 2.16.8 40.1.534433.3.579.2.462 Unknown [id number] 2.16.8 40.1.604624.3.579.2.462 Unknown [id number] 2.16.8 40.1.160322.3.579.2.462 Unknown [id number] 2.16.8 40.1.429199.3.579.2.462 Unknown [id number] 2.16.8 40.1.037464.3.579.2.462 Unknown [id number] 2.16.8 40.1.413063.3.579.2.462 Unknown [id number] 2.16.8 40.1.301511.3.579.2.462 Unknown [id number] 2.16.8 40.1.274173.3.579.2.462 Unknown [id number] 2.16.8 40.1.179859.3.579.2.462 Unknown [id number] 2.16.8 40.1.192302.3.579.2.462 Unknown [id number] 2.16.8 40.1.075786.3.579.2.462 Social History Date Type Detail Facility Start: 12-01-2014 End: 01-15-2025 Tobacco smoking status NHIS Never smoked tobacco (finding) [facility] Start: 1945 Sex Assigned At Female [facility] Sex Female [facility] Clinical Notes 08-30-2024 to 02-05-2025 Note Date & Type Note Facility 02-05-2025 Progress note [facility] 01-20-2025 Radiology Diagnostic study note [facility] Imaging Services [address] [place] [address] Cerv Spine 2 or 3 Views MR#: [id number] Acct: [id number] Name: BRYCE GENTILE Rep #: [id number] : 1945 F 79 From: Junito Valdez DO PCP: Dr. Jelena Arias MD Status: DEP AM B Study:Cerv Spine 2 or 3 Views Date of Exam: 01/18/25 Exam# [id number] Ordering Dr: Ludin Hummel PROCEDURE: CERV SPINE [...] the flexion or extension views. Reading Location: [id number] CC: CINTIA David; Dr. Jelena Arias MD ~ Nanny Babysitter: Signed [facility] 01-18-2025 Progress note [facility] 01-18-2025 Radiology Diagnostic study note [facility] Imaging Services [address] [place] [address] L/S Spine Bending Flex/Ext MR#: [id number] Acct: [id number] Name: BRYCE GENTILE Rep #: [id number] : 1945 F 79 From: Junito Valdez DO PCP: Dr. Jelena Arias MD Status: DEP AM B Study:L/S Spine Bending Flex/Ext Date of Exam : 01/18/25 Exam# [id number] Ordering Dr: Ludin Hummel PROCEDURE: L/S SPINE [...] to an osteoporotic compression fracture. Reading Location: [id number] CC: CINTIA David; Dr. Jelena Arias MD ~ Nanny Babysitter: Signed [facility] 01-18-2025 Progress note Note Date/Time January 18, 2025 4:01pm [facility] [address] [place] [address] OFFICE VISIT Date of Service: 01/18/25 MR#: [id number] Acct: [id number] Name: BRYCE GENTILE Rep #: [id number] : 1945 Provider: CINTIA David Age/Sex: 79/F [place] [facility] Status: Signed Intake Vital Signs 12/01/14 13:55 [...] decisions made by me, CINTIA David 01/18/25 1206. Part of today?s visit was documentedby Zev [...] lower back. She saw Dr. Alfaro in [place] about 3 years ago. The injections did help a lot. They lasted for a couple of years. She states that [place]. Patient state that the physical therapy did [...] has had injections in the past in [place] which was beneficial to her at that [...] Yes 01/18/25 1645 <Electronically signed by Lisa CHAMBERLANI> Date _ Lisa CHAMBERLAIN Cosigner Signature: Date (if applicable) CC: Dr. Jelena Arias MD ~ [facility] [employer] Work Phone: 1(536) 913-362009-22-2025 Evaluation note* Diagnosis Onset Date Resolution Status Admit Date Left knee DJD acute December 262024 8:08am Other instability, left knee acute January 15, 2025 8:08am Compression fracture of L1 lumbar vertebra acute January 18, 2025 2:52pm Degenerative disc disease, cervical acute January 18, 2025 2:52pm Lumbar radiculopathy acute Dec 2:52pm Cervical myelopathy noneactive 2024 2:52pm [facility] Work Phone: 1(575) 222-757309-22-2025 Evaluation note* Diagnosis Onset Date Resolution Status Admit Date Left knee DJD acute December 262024 8:08am Other instability, left knee acute January 15, 2025 8:08am Compression fracture of L1 lumbar vertebra acute January 18, 2025 2:52pm Degenerative disc disease, cervical acute January 18, 2025 2:52pm Lumbar radiculopathy acute Dec 2:52pm Cervical myelopathy noneactive 2024 2:52pm Left knee DJD acute January 11:18am [facility] Work Phone: [phone] [id number] [facility] [address] [place] [address] OFFICE VISIT Date of Service: 01/15/25 MR#: [id number] Acct: [id number] Name: BRYCE GENTILE Rep #: [id number] : 1945 Provider: Dr. Joao Cheng, Age/Sex: 79/F [place] [facility] [place] Status: Signed Intake Vital Signs 12/01/14 13:55 [...] o DO> Date _ Will [facility] DO [facility] Signature: Date (if applicable) CC: ~ [facility]09-12-2025 Radiology Diagnostic study note [facility] Imaging Services [address] [place], [place] [address] Lumbar Spine 2 or 3 Views MR#: [id number] Acct: [id number] Name: BRYCE GENTILE Rep #: [id number] : 1945 F 79 From: Vernell Hawkins MD PCP: Dr. Jelena Arias MD Status: REG CL I Study:Lumbar Spine 2 or 3 Views Date of Exam: 01/04/25 Exam# [id number] Ordering Dr: Magda Arias MD PROCEDURE: LUMBAR SPINE 2 OR 3 VIEWS 01/04/2025 REASON FOR EXAM: LOW BACK PAIN TECHNIQUE: Procedure Code: RADSPLL Modality: DX Procedure: LUMBAR SPINE 2 OR 3 VIEWS COMPARISON: NONE. FINDINGS: BONES: Five krt-kap-ginjkwe lumbar vertebral bodies. Mild anterior wedge compression deformity of the L1 vertebral body. No focal osseous lesion. Anatomic spinal alignment. DISC/DEGENERATIVE CHANGES: Disc spaces are preserved. SOFT TISSUES: Moderate colonic stool. RAD/Lumbar Spine 2 or 3 Views IMPRESSION: L1 vertebral body compression deformity, age indeterminate. If clinically indicated, a follow-up CTor MRI is suggested to further evaluate. Reading Location: [facility] [place] [place] CC: Dr. Jelena Arias MD ~ Nanny Babysitter: Signed [facility]09-11-2025 Radiology Diagnostic study note [facility] Imaging Services [address] [place] [address] [id number] Cerv Spine 4 or 5 Views MR#: [id number] Acct: [id number] Name: BRYCE GENTILE Rep #: [id number] : 1945 F 79 From: Kenneth Sanders MD PCP: Dr. Jelena Arias MD Status: REG CL I Study:Cerv Spine 4 or 5 Views Date of Exam: 01/04/25 Exam# [id number] Ordering Dr: Magda Arias MD PROCEDURE: CERV [...] Degenerative anterolisthesis, C3 on C4. Reading Location: [place] [address] CC: Dr. Jelena Arias MD ~ Nanny Babysitter: Signed [facility] Work Phone: 1(110) 878-902505-07-2025 Radiology Diagnostic study note [facility] Imaging Services [address] [place], [place] [id number] Knee 4 or More Views MR#: [id number] Acct: [id number] Name: BRYCE GENTILE Rep #: [id number] : 1945 F 78 From: León Cui MD PCP: Dr. Jelena Arias MD Status: REG CL I Study:Knee 4 or More Views Date of Exam: 08/29/24 Exam# [id number] Ordering Dr: Sera Taylor NP PROCEDURE: 08/29/2024 REASON FOR EXAM: KNEE PAIN TECHNIQUE: 4 view(s) of the left knee COMPARISON: None. FINDINGS: Moderate narrowing seen within the medial compartment of the left knee with whcxkmwh-ih-wriv contact. Subchondral sclerosis is seen. Mild narrowing seen within the lateral compartment. Osseous structures are in anatomic alignment. No fracture or dislocation is seen. No suprapatellar joint effusion. RAD/Knee 4 or More Views IMPRESSION: Left knee osteoarthritis, worse within the medial compartment. No fracture or dislocation. No jointeffusion. Reading Location: [facility] CC: Sera ROBLES NP-Jesica Taylor; Dr. Jelena Arias MD ~ Nanny Babysitter: Signed [facility] assessment information available [facility] Work Phone: Evaluation note* Diagnosis Onset Date Resolution Status Admit Date Left knee DJD acute December 262024 8:08am Other instability, left knee acute January 15, 2025 8:08am Compression fracture of L1 lumbar vertebra acute January 18, 2025 2:52pm Degenerative disc disease, cervical acute January 18, 2025 2:52pm Lumbar radiculopathy acute Dec 2:52pm Cervical myelopathy noneactive 2024 2:52pm [facility] Work Phone: Progress note Author Will Cheng [facility] Note Date/Time January 15, 2025 8:42am [facility] [address] [place] [address] [address] [place] [address] OFFICE VISIT Date of Service: 01/15/25 MR#: [id number] Acct: [id number] Name: BRYCE GENTILE Rep #: [id number] : 1945 Provider: Dr. Joao Cheng, Age/Sex: 79/F [place] [facility] [place] Status: Signed Intake Vital Signs 12/01/14 13:55 [...] Cosigner Signature: Date (if applicable) CC: ~ [facility] Work Phone: Progress note Author Will Cheng [facility] Note Date/Time February 05, 2025 1 1:49am [facility] [address] [place] [address] OFFICE VISIT Date of Service: 02/05/25 MR#: [id number] Acct: [id number] Name: BRYCE GENTILE Rep #: [id number] [...] Cosigner Signature: Date (if applicable) CC: ~ [facility] Work Phone: Reason for referral (narrative)No reason for referral information [facility] Work Phone: Chief Complaint and Reason [...] Active Member Role Status Dates Out of [facility] Doctor Family Provider Active Jelena Arias MD Primary Care Provider Active Team Status: Inactive Member Role Status Dates Out of [facility] Doctor Primary Care Provider Active Start: May 15, 2024 End: May 15, 2024 Dr. Dre Billingsley MD Attending Provider Active Start: May 15, 2024 End: May 15, 2024 Dr. Dre Billingsley MD Referring Provider Active Start: May 15, 2024 End: May 15, 2024 Team Status: Active Member Role Status Dates Out of [facility] Doctor Primary Care Provider Active Start: May 15, 2024 Dr. Corby Iniguez MD Attending Provider Active S tart: May 15, 2024 Dr. Dre Billingsley MD Referring Provider Active Start: May 15, 2024 Team Status: Inactive Member Role Status Dates Jelena Arias MD Primary Care Provider Active St art: August 29, 2024 End: August 29, 2024 Sera Taylor TURKEY CLEANER, TURKEY CLEANER-C Attending Provider Active Start: August 29, 2024 End: August 29, 2024 Sera Taylor TURKEY CLEANER, TURKEY CLEANER-C Referring Provider Active Start: August 29, 2024 [...] section and content) DATE CREATED AUTHOR 03/04/2025 [facility] FOR RECORDS PERTAINING TO PATIENTS WHO [...] BE BASED ON THE PRIMARY CLINICAL RECORDS. [employer] provides no warranty or guarantee of the accuracy or completeness of information in this document.
== END | disposition home or self-care (01) ==
PROVIDERS: PCP Family Medicine; Referring Provider Student in an Organized Health Care Education/Training Program; Visit Provider Student in an Organized Health Care Education/Training Program
DX: S32.010A Wedge compression fracture of first lumbar vertebra, initial encounter for closed fracture (principal); M54.16 Radiculopathy, lumbar region
CPT/HCPCS: 72148

== ENCOUNTER 2025-03-27 08:28 | Day surgery (SDC) | payer MEDICARE, SELFPAY ==
[2025-03-16 13:50] LABS: Prothrombin Time (Protime)PT. 13.5 SECONDS (11.7-14.9)
[2025-03-16 13:51] LABS: Partial Thromboplast Time 23.6 Seconds (24.1-36.2)
[2025-03-16 14:21] LABS: Anion Gap 10 (5-15); BUN 14 mg/dL (4-19); BUN/Creat Ratio 15.7 RATIO (10-20); Calcium,Total 9.4 mg/dL (7.6-11.0); Carbon Dioxide 25.6 mmol/L (21.0-32.0); Chloride 106 mmol/L (98-108); Glucose 102 mg/dL (70-99); Magnesium 2.4 mg/dL (1.5-2.2); Potassium 4.1 mmol/L (3.3-5.1)
--- NOTE | 2025-03-21 15:59 | PAT.ANE_ITS ---
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 When Was Last Pacemaker Check QUESTION #4 FULL TEXT: You/Your Family Experience fever (hyperthermia) with Anesthesia Last Oral Intake Last Oral intake: Last Oral Intake NPO since Meds taken in AM with sips of water? Meds patient instructed to take am of surgery PONV PONV - fulfillment mail clerk: PONV - fulfillment mail clerk Female Yes 03/12/25 14:18 HX of Motion Sickness No 03/12/25 14:18 HX of N/V After Surgery No 03/12/25 14:18 Non-Smoker Yes 03/12/25 14:18 Duration of Surgery greater Yes 03/12/25 14:18 than 60 minutes Number of Risk Factors 3 03/12/25 14:18 PONV Score Moderate Risk 03/12/25 14:18 Height & Weight Height & Weight: Anesthesia: Height & Weight Height 5 ft 3 in 02/05/25 11:23 Respiratory Assessment Respiratory Assessment - fulfillment mail clerk: Respiratory Tract Infection Hx - fulfillment mail clerk Hx Respiratory Tract Infection No 03/12/25 14:18 STOP Sleep Apnea STOP Sleep Apnea - fulfillment mail clerk: STOP Sleep Apnea - fulfillment mail clerk Hx Hypertension No 03/12/25 14:18 Hx Sleep Apnea No 03/12/25 14:18 CPAP BIPAP Do you snore loudly (louder No 03/12/25 14:18 than talking or can be heard Do you often feel tired/ No 03/12/25 14:18 fatigued/ sleepy during daytime? Has anyone observed you stop No 03/12/25 14:18 breathing during sleep? STOP Results Negative 03/12/25 14:18 QUESTION #5 FULL TEXT : Do you snore loudly (louder than talking or can be heard through closed doors)? Tobacco Use History Tobacco Use History - fulfillment mail clerk: Tobacco Use History - fulfillment mail clerk Tobacco Use Smoking Status Never smoker 03/12/25 14:18 Hx Tobacco Use No 03/12/25 14:18 Years Smoking Packs Smoked per Day Smoking Cessation Date was within the last 15 years Hx Smoking Cessation Date Hx Smoking Cessation Counseling Hematologic Medial History Hematologic Hx - fulfillment mail clerk: Hematologic Medical Hx - emergency medical tech Hx of Blood Transfusion No 03/12/25 14:18 Hx of Transfusion in last 3 No 03/12/25 14:18 Months Date of Last Transfusion (if within last 3 months) Ever experience any problems No 03/12/25 14:18 with transfusion(s)? Specify any problems Hx of Preganancy in last 3 N/A 03/12/25 14:18 Months Nurse Filling Out Transfusion NBUCHER 03/12/25 14:18 & Questions: Date: 03/12/25 03/12/25 14:18 Time: 14:21 03/12/25 14:18 Patient unable to answer at this time (ie. confused, unrespo /Reproduction History /Reproductive History - fulfillment mail clerk: /Reproductive Hx- fulfillment mail clerk Hx Now No 03/12/25 14:18 Gestational Age (in weeks): EDC: Hx Hx Para Hx Section SAB No 03/12/25 14:18 Does the father of the baby or his family experience fever w Father of the baby Malignant Hypertension history comment PFSH Medical History Wears glasses Depression Arthritis Gastric reflux Non-smoker History of edema History of echocardiogram History of stress test Home Medications Medication Instructions Recorded Last Taken Type alendronate 35 mg tablet 35 mg PO QWEEK 01/15/25 Unkn own History escitalopram oxalate 20 mg tablet 20 mg PO QDAY Unknown History multivitamin 1 tab PO QDAY 03/13/25 Unkno wn History Allergy/AdvReac Type Severity Reaction Status Date / Time penicillin Allergy Rash Verified 03/21/25 12:34 Surgical History History of nasal surgery History of tubal ligation History of cataract removal with insertion of prosthetic lens History of appendectomy History of right knee joint replacement Social History Smoking Status: Never smoker alcohol intake: current alcohol intake frequency: a few times a week Audit: Pertinent Findings HISTORY of Pertinent Findings History of Pertinent Findings: Assessed by Dr. Dominguez who has cleared her for surgery with acceptable risk for knee surgery Pertinent Findings EKG Perinent findings: 02/2025: ectopic atrial rhythm, possible left atrial enlargement, nonspecific T wave changes Stress test pertinent findings: 02/2025: Impression: 1. Pharmacologic (Regadenoson) evaluation 2. Peak pharmacologic ECG with no ischemic changes. 3. There were no cardiac dysrhythmias pretest, during pharmacologic infusion, or recovery. 5. Rest and stress SPECT Cardiolite nuclear imaging demonstrate relative uniform tracer uptake and myocardial perfusion appearing within normal limits. 6. The gated Cardiolite study reports an LVEF of 86%. Echo (EF%) pertinent findings: 02/2025: The left ventricular ejection fraction is 60 %. Mild (1+) aortic valve insufficiency. Additional pertinent findings: Carotid duplex 05/15/24: Mild stenosis bilateral internal carotid arteries Recommendation Anesthesia Recommendation Anesthesia recommendation: OPTIMIZED for anesthesia
[2025-03-27] VITALS (18 sets, daily range): BP systolic 132–159; BP diastolic 71–108; PULSE 65–79; RESP 14–16; TEMP 36.1–37.1; O2SAT 92–100; BMI 34.3
[2025-03-27] MEDS: Lactated Ringers 1,000 ML 15 ML IV (09:12)
[2025-03-27] MEDS: Scopolamine 1mg/72hr Patch 1 PATCH TD (09:13)
--- NOTE | 2025-03-27 09:57 | PCM.PRE.AN2 ---
ASA Classification* ASA Classification ASA Classification: 2 Assessment & Plan Anesthesia* Anesthesia Assessment Anesthesia Assessment: Discussed sedation and/or anesthesia options, risks, benefits, and alternatives with patient/parents/legal guardian/POA. Questions invited. The patient/parents/legal guardian/POA seems to understand and agrees to proceed with anesthesia plan. Reviewed the physical assessment, medical history, allergy history and patient home medications list prior to surgery/procedure/anesthetic and documented any changes. Performed airway and anesthesia risk assessments. Anesthesia Type Anesthesia Type: Spinal and Block (Patient is consented for adductor canal block.) History Source History Obtained from:: Patient and Chart Anesthesia Focused Assessment* Temperature: 97.2 F Pulse Rate: 65 Blood Pressure: 133/78 Respiratory Rate: 14 Pulse Ox: 98 Oxygen Delivery Method: Room Air Airway Assessment Mouth opens: >3 cm Mallampati Score: IV Teeth Condition: Caps/Crowns (Patient has a couple crowns. They are tight.) Neck Range of motion (ROM): Limited ROM (Somewhat Decreased) Labs Anesthesia Preop lab: CBC WBC, (4.4-11.0) 7.3 K/mm3 02/27/25, 11:40 RBC, (4.2-5.4) 4.72 M/mm3 02/27/25, 11:40 Hgb, (12.0-15.0) 16.0 g/dL H 02/27/25, 11:40 Hct, (37-47) 45.2 % 02/27/25, 11:40 Plt Count, (150-450) 240 K/mm3 02/27/25, 11:40 CHEMISTRY Potassium, (3.3-5.1) 4.1 mmol/L 03/16/25, 13:03 Sodium, (133-145) 141 mmol/L 03/16/25, 13:03 Magnesium, (1.5-2.2) 2.4 mg/dL H 03/16/25, 13:03 BUN, (4-19) 14 mg/dL 03/16/25, 13:03 Creatinine, (0.70-1.20) 0.91 mg/dL 03/16/25, 13:03 Glucose, (70-99) 102 mg/dL H 03/16/25, 13:03 POC Glucose, (74-106) 92 mg/dL Today, 08:58 COAG PT, (11.7-14.9) 13.5 SECONDS 03/16/25, 13:03 Pre-Assessment Diagnosis/Proposed Procedure Planned Operative Procedure(s): (L) Left Total Knee Replacement Robotic Arm Assisted Anesthesia History 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 When Was Last Pacemaker Check QUESTION #4 FULL TEXT: You/Your Family Experience fever (hyperthermia) with Anesthesia Last Oral Intake Last Oral intake: Last Oral Intake NPO since 06:00 03/27/25 09:00 Meds taken in AM with sips of No 03/27/25 09:00 water? Meds patient instructed to take am of surgery Any additional information?: Yes NPO since: 06:00 (Patient had her preop insurance exam.) PONV PONV - gas regulator repairer: PONV - gas regulator repairer Female Yes 03/12/25 14:18 HX of Motion Sickness No 03/12/25 14:18 HX of N/V After Surgery No 03/12/25 14:18 Non-Smoker Yes 03/12/25 14:18 Duration of Surgery greater Yes 03/12/25 14:18 than 60 minutes Number of Risk Factors 3 03/12/25 14:18 PONV Score Moderate Risk 03/12/25 14:18 Height & Weight Height & Weight: Anesthesia: Height & Weight Height 5 ft 3 in 03/27/25 09:00 Weight: 88 kg 03/27/25 09:00 Body Mass Index (BMI) 34.3 03/27/25 09:00 Respiratory Assessment Respiratory Assessment - gas regulator repairer: Respiratory Tract Infection Hx - gas regulator repairer Hx Respiratory Tract Infection No 03/12/25 14:18 STOP Sleep Apnea STOP Sleep Apnea - gas regulator repairer: STOP Sleep Apnea - gas regulator repairer Hx Hypertension No 03/12/25 14:18 Hx Sleep Apnea No 03/12/25 14:18 CPAP BIPAP Do you snore loudly (louder No 03/12/25 14:18 than talking or can be heard Do you often feel tired/ No 03/12/25 14:18 fatigued/ sleepy during daytime? Has anyone observed you stop No 03/12/25 14:18 breathing during sleep? STOP Results Negative 03/12/25 14:18 QUESTION #5 FULL TEXT : Do you snore loudly (louder than talking or can be heard through closed doors)? Tobacco Use History Tobacco Use History - gas regulator repairer: Tobacco Use History - gas regulator repairer Tobacco Use Smoking Status Never smoker 03/12/25 14:18 Hx Tobacco Use No 03/12/25 14:18 Years Smoking Packs Smoked per Day Smoking Cessation Date was within the last 15 years Hx Smoking Cessation Date Hx Smoking Cessation Counseling Hematologic Medial History Hematologic Hx - gas regulator repairer: Hematologic Medical Hx - audiometric technician Hx of Blood Transfusion No 03/12/25 14:18 Hx of Transfusion in last 3 No 03/12/25 14:18 Months Date of Last Transfusion (if within last 3 months) Ever experience any problems No 03/12/25 14:18 with transfusion(s)? Specify any problems Hx of Preganancy in last 3 N/A 03/12/25 14:18 Months Nurse Filling Out Transfusion NBUCHER 03/12/25 14:18 & Questions: Date: 03/12/25 03/12/25 14:18 Time: 14:21 03/12/25 14:18 Patient unable to answer at this time (ie. confused, unrespo /Reproduction History /Reproductive History - gas regulator repairer: /Reproductive Hx- gas regulator repairer Hx Now No 03/12/25 14:18 Gestational Age (in weeks): EDC: Hx Hx Para Hx Section SAB No 03/12/25 14:18 Does the father of the baby or his family experience fever w Father of the baby Malignant Hypertension history comment Active Medications Active Medications: Current Medications Generic Name Dose Route Start Last Admin Trade Name Freq PRN Reason Stop Dose Admin Acetaminophen 1,000 mg 03/27/25 10:45 03/27/25 09:13 Acetaminophen 500 Mg Tablet PO 03/27/25 10:46 1,000 mg PREOP ONE Administration Dexamethasone Sodium Phosphate 10 mg 03/27/25 10:45 Dexamethasone 10 Mg/Ml Vial IV 03/27/25 10:46 INTRAOP ONE Gabapentin 600 mg 03/27/25 10:45 03/27/25 09:13 Gabapentin 600 Mg Tablet PO 03/27/25 10:46 600 mg PREOP ONE Administration Tranexamic Acid 1,000 mg/ 110 mls @ 660 mls/hr 03/27/25 10:45 Sodium Chloride IV 03/27/25 10:54 INTRAOP ONE Tranexamic Acid 1,000 mg/ 110 mls @ 660 mls/hr 03/27/25 10:45 Sodium Chloride IV 03/27/25 10:54 INTRAOP ONE Lactated Ringer's 1,000 mls @ 125 mls/hr 03/27/25 10:45 IV 03/27/25 18:44 .Q8H JESICA Cefazolin Sodium 2 gm/ Sodium 110 mls @ 200 mls/hr 03/27/25 11:45 Chloride IV 03/27/25 12:17 INTRAOP ONE Lactated Ringer's 1,000 mls @ 15 mls/hr 03/27/25 08:45 03/27/25 09:12 IV 15 mls/hr .Q48H JESICA Administration Insulin Human Lispro 1 - 6 unit 03/27/25 10:45 Insulin Lispro 100 Unit/Ml Insuln.Pen SC Q4H PRN PRN BG>/= 180, SEE PROTOCOL Protocol Scopolamine HBr 1 patch 03/27/25 10:45 03/27/25 09:13 Scopolamine 1mg/72hr Patch TD 03/27/25 10:46 1 patch PREOP ONE Administration PFSH Medical History Wears glasses Depression Arthritis Gastric reflux Non-smoker History of edema History of echocardiogram History of stress test Home Medications Medication Instructions Recorded Last Taken Type alendronate 35 mg tablet 35 mg PO QWEEK 01/15/25 03/25/25 History escitalopram oxalate 20 mg tablet 20 mg PO QDAY 01/15/25 Unknown History multivitamin 1 tab PO QDAY 03/13/25 Unknown History Allergy/AdvReac Type Severity Reaction Status Date / Time penicillin Allergy Rash Verified 03/27/25 08:59 Surgical History History of nasal surgery History of tubal ligation History of cataract removal with insertion of prosthetic lens History of appendectomy History of right knee joint replacement Social History Smoking Status: Never smoker alcohol intake: current alcohol intake frequency: a few times a week Review of Systems (Anesthesia) ROS Narrative System reviewed and no additional complaints, except as documented.
--- NOTE | 2025-03-27 10:17 | PCM.HP.BLA ---
History and Physical Date of Admission: 03/27/25 [facility] [address] [place] [address] OFFICE VISIT Date of Service: 02/05/25 MR#: [id number] Acct: [id number] Name: BRYCE GENTILE Rep #: [id number] : 1945 Provider: Dr. Will Cheng DO Age/Sex: 79/F Location[place] [facility] [place] Status: Signed Intake Vital Signs 01/18/2515:07 02/05/2511:23 Height 5 ft 3 in 5 ft 3 in Weight: 191 lb 4 oz 193 lb BMI 33.8 34.2 Intake Visit Reasons: LEFT KNEE Chief Complaint: left knee pain Accompanied by: Is patient in pain?: No Allergies penicillin Allergy (Verified 02/05/25 11:21) Rash Medications Medication Instructions Recorded Confirmed Type alendronate 35 mg tablet 35 mg PO QWEEK 01/15/25 02/05/25 History escitalopram oxalate 20 mg tablet 20 mg PO QDAY 01/15/25 02/05/25 History Have you fallen in the past year?: Yes PFSH Surgical History History of nasal surgery History of tubal ligation History of cataract removal with insertion of prosthetic lens History of appendectomy History of right knee joint replacement Social History Smoking Status: Never smoker alcohol intake: current alcohol intake frequency: a few times a week HPI LEFT KNEE Details: This documentation accurately reflects the service provided and the decisions made by me, Dr. Will Cheng DO 02/05/25 0902. Part of today’s visit was documented by Adele Diaz RN, acting as scribe. BRYCE GENTILE is a 79 year old F here today for left knee MRI review follow-up; continues to have left knee pain patient states pain with Ambulation, keeping knee straight states at night the pain in the knee will throb. 01/15/2025 visit:79 year old F new patient here today for left knee pain that she has been having since August. She did get a steroid injection from her PCP in October that gave her some minimal relief for a few weeks. She denies any known injury and denies any previous surgery to this knee. Her pain is anterior medial. When the pain initially started she woke up with her right leg on the left leg then later on that morning she went to walk down some steps and felt a painful pop in the knee. She feels that their is no stability in the knee and has to be very mindful of how she walks. She denies painful mechanical symptoms since. She does get shooting pain through the anterior medial compartment. At night if she tried to lift up her leg she gets increased pain in the knee. She did have xrays of the knee on 08/29/24. She does take Advil for the pain as needed. She denies doing PT. She does have 2 knee braces at home but neither of them help with the pain or stability. Walking on uneven ground she feels very unstable on the knee. she states it feels like when she tore her meniscus in her other knee prior to her knee replacement. Plan:Patient is here today for left knee pain. I did review xrays from August today with patient and advised her that she does have some mild arthritis with some spurring and likely has a degenerative tear of her medial meniscus. I spoke with patient that for this we typically treat it by anti-inflammatories and a steroid injection. Another option would be to get an MRI then decide if we would want to go in arthroscopically or talk about knee replacement. patient wishes to proceed with an MRI. Follow up after MRI or sooner if pain, swelling, numbness or associated symptoms, or concerns develop. All questions answered. Patient in agreement of plan. Ortho Exam General General: Yes no acute distress Neurologic: Yes alert and Yes oriented x3 Psychologic: Yes reasonable and appropriate Right Knee Patella Translation: 1 KNEE: flexion 120 Left Knee Skin/Wound: No ecchymosis, No erythema and Yes swelling Homans Sign: No Knee ROM: Yes ROM-Extension -20 to 0 (-8) and Yes ROM-Flexion 0-140 (108) Examination: Yes med jt line tenderness, Yes Lat jt line tenderness and No TTP Pes Anserine Stability: NML: Anterior Drawer, NML: Posterior Drawer, NML: Valgus 0, NML: Valgus 30, NML: Varus 0 and NML: Varus 30 Patella Translation: 1 Patella Grind: Yes KNEE: no effusion medial click with lateral gillian pain with medial gillian Constitutional: Well-developed; well-nourished; in no acute distress Eyes: No jaundice ENT: Nares patent; no obvious deformity Cardiovascular: No cyanosis; clubbing; or edema Lymphatic: No adenopathy in area of examination Skin: No rashes or lesions in the area of examination and intact Neurologic: Alert and oriented x 3 Psychiatric: Mood and affect appropriate Supplemental Info 01/25/2025 MRI left knee: Medial meniscus: High-grade attenuating incomplete radial tear of the far posterior horn of the medial meniscus near the root attachment, resulting in extrusion of the body, with intrasubstance degeneration. Chondral degeneration in all three compartments. Areas to bone in the patellofemoral and likely the medial compartments. Small effusion. Moderate prepatellar edema/bursitis. Plica. Popliteal cyst and cyst leakage. Mild blunting and fraying of the free edge of the lateral meniscus. Mild tendinosis. 08/29/2024 x-ray left knee: Degenerative changes moderate medial and patellofemoral with spurring and joint space narrowing Coding Level of Care Code Off vis,est,level 4 Diagnoses Primary osteoarthritis of left knee M17.12 Osteoarthritis type: primary Assessment and Plan Assessment and Plan (1) Left knee DJD: Status: Acute Qualifiers: Osteoarthritis type: primary Qualified Code(s): M17.12 - Unilateral primary osteoarthritis, left knee Plan I reviewed pt's MRI in detail. The MRI showed the arthritis is worse than the x-ray portrayed it also showed a medial meniscus tear. The non surgical options at this point would include another steroid injection, gel injections, PT, braces, glucosamine and chondroitin, NSAID's. The surgical options would include a knee arthroscopy versus left total knee arthroplasty. We discussed risk benefits and alternatives of both options in detail. The concern with knee arthroscopy would be the severity of her knee arthrosis causing residual pain after surgery, she feels as though her quality of life is decreasing therefore she would like to proceed with the right total knee arthroplasty for more definitive and predictive outcome. I discussed the surgery in detail including risks, benefits and alternatives. I also discussed the option of Iovera and gave her a pamphlet regarding this, if her insurance covers it she will be agreeable to this. Follow up two weeks post operatively or sooner if pain, swelling, numbness or associated symptoms, or concerns develop. All questions answered. Patient in agreement of plan. She will need medical clearance as well as CT scan tentative surgery date March 27, 2025 same-day surgery. She will need to stop all NSAIDs 7 days prior to surgery. Clinical Quality Measures Falls Risk Screening/Assistive Devices Have you fallen in the past year?: Yes 02/05/25 1222 <Electronically signed by Will Cheng DO> Date Will Cheng DO I have examined the patient and the H&P has been reviewed. There are no clinical changes since date of exam.
[2025-03-27] MEDS: Midazolam 2 MG/2 ML Syringe IV (10:26)
[2025-03-27] MEDS: Cefazolin 1 GM/5 ML Vial 2 GM IV (10:45)
--- NOTE | 2025-03-27 10:45 | KNEE_PTH ---
PATIENT: BRYCE GENTILE LOC: [facility] [place] U#:[id number] AGE/SX: 79/F ROOM: RE03/27/[address]: Dr. Will Cheng DO : 1945 BED: DIS: 03/27/2025 SPEC #: [id number] RECD: 03/27/25 13:50 STATUS: LISANDRO RERose #: [id number] CHANO: 03/27/25 10:[address]: Will Cheng DEPT: SURGICAL PATHOLOGY RECD BY: Karen Paula ENTERED: 03/27/25 14:22 SP TYPE: TOTAL KNEE OTHR DR: Jelena Arias MD Tissues: Knee, NOS Procedures: Decalcification bone/plaque Surgery Specimen Level III HEADER OPERATION: ERAS, left total knee replacement robotic arm assisted PRE-OP DIAGNOSIS: Left knee, degenerative joint disease TISSUE SUBMITTED: A- Left knee bone and tissue MICROSCOPIC DIAGNOSIS A. Bone and soft tissue, left knee, total knee arthroplasty: - Degenerative osteoarthritis MICROSCOPIC DESCRIPTION Slides are reviewed. GROSS DESCRIPTION A. Received in formalin labeled with the patient's name and date of . Designated as " left knee bone and soft tissue" is a 9.5 x 8.3 x 2.8 cm aggregate of irregular bone and soft tissue, collectively comprising a knee joint. The articular cartilage is wallace-red and granular with mild peripheral osteophyte formation and focal eburnation. Hog Slaughterer sections are submitted in 2 cassettes, following decalcification. [place] 03/27/2025PT:[id number]
[2025-03-27] MEDS: Lidocaine 1% (5 ml sdv) 5 ML Vial 6 ML IV (10:50)
[2025-03-27] MEDS: TRANEXAMIC ACID 1,000 MG/10 ML ML 2000 MG IV (11:24)
[2025-03-27] MEDS: Epinephrine (1 mg/ml) 1 MG/ML VIAL (11:42)
[2025-03-27] MEDS: 0.9% Normal Saline (Pres. free 10 ML Vial (11:42)
--- NOTE | 2025-03-27 13:07 | OP.PCM_ITS ---
Operative Report (Standard) Operative Information Date of Procedure: 03/27/25 Pre-Operative Diagnosis: DJD left knee Post-Operative Diagnosis: Same Surgery/Procedure Performed: Left total knee arthroplasty lead sprinkler: Yes Media Services Specialist: Maxi Cruz Tasks completed by preschool teacher's assistant: Opening & closing and Implanting device Additional credit control assistant?: Yes Additional Shoe Repairer Apprentice #2: Robert Tasks completed by credit control assistant #2: Retracting Type of Anesthesia: Spinal RN Documented Start/Stop Times: Operation Date: 03/27/25 10:45 Case Time Into Pre-Op 03/27/25 08:34 Anesthesia Start 03/27/25 10:45 Into Room 03/27/25 10:45 Procedure Start 03/27/25 11:09 Procedure End 03/27/25 13:07 Procedure Start Time: 11:09 Procedure Stop Time: 13:07 Select all DRAINS/GRAFTS/IMPLANTS that apply: Implanted device Implanted device details: Mckay Estimated Blood Loss: 125 Specimen collected: Yes Description of specimen(s) removed: Bone Description of surgery: Preoperative diagnosis: Left knee DJD Postoperative diagnosis: Same Procedure: Left total knee arthroplasty CT guided Robotic Assisted Implant: Mckay triathlon cemented, femoral component size2, tibial baseplate size 2, asymmetric patella size 32, polyethylene X3 size 9 CS Anesthesia: Spinal with adductor canal block Tourniquet time: Upper 15 and down and up for 11 during cementing minutes at 300 mmHg Complications: None Condition: Stable to PACU Estimated blood loss: 175 cc Shoe Repairer Apprentice Maxi Cruz. My physician credit control assistant was a vital part of this case. He was important in appropriate retraction during the case, and protection of soft tissues during procedure. His intimate knowledge of the case and my steps aided in safe and expedient completion of the procedure as well as appropriate position of the extremity during the case. He was also vital in assisting with closure under my direct supervision. Indication for procedure: This is a 79-year-old female with long standing degenerative joint disease of the knee who has failed conservative treatment and wished to proceed with elective total knee arthroplasty. Risk benefits and alternatives were reviewed including; risk of bleeding, infection, nerve artery and tissue damage, continued pain, postoperative stiffness, venous thromboembolism, need for postoperative rehabilitation, mechanical feel to the knee, and expected postoperative course. The pre- operative CT and templating was performed with component sizing. Procedure: The patient was met in the preoperative holding area. The operative extremity was identified by both patient and physician and was marked. Patient was met by anesthesia. An adductor canal block was placed by anesthesia postoperatively the patient was brought back to the operating room on a wheeled cart and transferred to the operating table in the supine position. Anesthesia was started. A well-padded tourniquet was placed on the operative extremity. The patient was prepped and draped in the usual sterile fashion. A timeout was called to ensure the proper patient procedure and extremity were being contemplated. An esmarch was used to exsanguinate the extremity. The tourniquet was inflated. A 10 blade scalpel was used to make a midline incision down through the skin and subcutaneous tissue. Skin retractors placed. Bovie and Aquamantis were used to perform meticulous hemostasis. full-thickness flaps were elevated medial and lateral along the joint capsule. A deep blade scalpel was used to perform a medial parapatellar arthrotomy. The knee was brought to full extension. A bovie was used to release the soft tissues off the most proximal aspect of the medial tibial plateau, a three-quarter inch curved osteotome was also used in this process. The infrapatellar fat pad was excised. The suprapatellar fat pad was excised partially anteriorolateraly and portion the anterioromedial pad was elevated from the femur. At this point our intra-ar ticular femoral array was placed at a 45 degree angle proximal and posterior to the medial epicondyle. femoral checkpoint was placed at this time. Our tibial array was placed partially intra incisional 1 stab incision was made for the inferior pin with a 15 blade scaple, and pins were placed and attached to the tibial array , tibial checkpoint was placed in the proximal tibial metaphysis. Tourniquet was let down. At this point registration medel were taken throughout the knee . Once the knee was registered we then tensioned the medial and lateral ligaments in extension and 90 degrees of flexion. We then used these numbers to adjust our components within parameters to balance the knee in both flexion and extension once this was done on our monitor we then proceeded with using the robotic arm to make our tibial plateau cut, anterior and posterior chamfer and distal femur cuts. we removed the cut fragments with the use of a bovie and Kimberley, we did use a lamina him manager to insure we visualized and removed all posterior osteophytes and at this time also used the Aquamantis on the posterior joint capsule. we then trialed and achieved the desired plan with a well-balanced knee. we used the green probe to chava the corresponding tibial rotation based on our CT template. Lug holes were drilled in the femur the tibia preparation was completed with the appropriate sized base plate pinned based on previous rotation chava. An appropriate sized fin punch was used on the tibia and 4 corner drill was used for the press fit component and the patella was prepared by first using a caliper to ensure sufficient bone stock and a patellar reamer to remove the desired amount of bone. lug holes drilled for an asymmetric poly. We then brought the knee through range of motion with e xcellent patellar tracking. We thoroughly irrigated the knee. Trial components were removed a posterior capsular injection was preformed with our standard cocktail. In addition the aqua Mantis was also used to aid in hemostasis. Betadine rinse was allowed to sit and washed out completely. Components were cemented into place with standard technique tourniquet was inflated prior to cementing surface was for well irrigated and dried with suction and dry sponges excess cement was removed with a freer elevator.. Aricept rinse was then used followed by several more liters of irrigation after it was allowed to sit. The joint capsule was closed with #1 Ethibond [id number] in the upper part of the arthrotomy and #1 Vicryl in the lower part of the arthrotomy. , Followed by 2-0 Vicryl in the subcutaneous tissues with pedro in the skin. Arrays and checkpoints were removed prior to closure all counts were correct stab incisions were closed with a staple standard dressing in the form of Mepilex AG for the main incision and a small Mepilex over the pin holes. Thigh-high TITUS hose applied over top of dressing. Patient tolerated the procedure well and was directed to PACU in stable condition . There were no intraoperative complications. Surgical Findings: As above Complications Complications: No
--- NOTE | 2025-03-27 13:13 | EX.PCM.DISCH ---
Discharge Instructions Diet Discharge Diet: No restrictions Activity Weight Bearing Status: Full weight bearing Dressing / Incision Call your doctor if you observe: Shortness of breath and Chest pain Additional Dressing/Incision Instructions:: Ice and elevate lower extremities 2 weeks while not ambulating. Ambulation is encouraged. Weight bearing as tolerated. Use assistive devise for stability. Encourage FULL knee extension and flexion 1 time EVERY time you get up and down and MULTIPLE times per day. No showering for 5 days postoperatively. May begin showering postop day # 5. Remove the dressing prior to shower and gently wash with warm water and antibacterial soap then pat dry and place abdominal pad (or plain gauze) and TITUS hose over top. If you decide not to begin showering 5 days post operatively and wish to sponge bath only, then you may leave dressing undisturbed for up to 1 week, but must remove prior to first shower. Do not submerge for 3 weeks. If not showering daily after the initial dressing is removed you must clean incision and change dressing daily after the dressing comes off, must come off by 7 days postop. Do not allow animals near the incision area. Keep clean. Follow anti-coagulation recommendations as prescribed. Do not take any NSAIDs while on blood thinner. Do not take any additional narcotic pain medication other than what was prescribed on your surgery day without discussing with physician. Narcotic medication can be addictive. Do not drink alcohol while taking narcotics. Supplement narcotic prescription with acetaminophen 1000 mg 4 times a day. Start physical therapy. If you are not currently scheduled for physical therapy or you are unsure of appointment time please call office [facility] to arrange. Call Dr. Cheng's office ) with any concerns. Follow Up Care Please Follow Up With: Will Cheng DO When: 2 weeks Test Results: Test results from this visit will be discussed in further detail at your follow-up appointment, if applicable. Discharge Plan Admission Primary Reason for Your Visit: Left total knee arthroplasty Attending Provider: Will Cheng Primary Care Provider: Jelena Arias Instructions Print Language: Chinese Discharge Orders/Prescriptions Prescriptions: New acetaminophen 500 mg tablet 1,000 mg PO Q6H Qty: 100 1RF cephalexin 500 mg capsule 1,000 mg PO Q8H Qty: 4 0RF Rx Instructions: Take 2 tabs before you go to bed and 2 tabs after 5 AM morning after surgery when you wake up oxycodone 5 mg tablet 5 - 10 mg PO Q4H PRN (Reason: pain) 7 Days Qty: 60 0RF Eliquis 2.5 mg tablet 2.5 mg PO BID Qty: 30 0RF Rx Instructions: Begin morning after surgery. Continued alendronate 35 mg tablet 35 mg PO QWEEK escitalopram oxalate 20 mg tablet 20 mg PO QDAY multivitamin Tablet 1 tab PO QDAY Referrals / Follow Up: Jelena Arias MD [Primary Care Provider, Family Practice] Disposition Disposition (needs filled in before D/C Order can be placed): Home, Self Care
--- NOTE | 2025-03-27 13:30 | RAD_ITS ---
PROCEDURE: KNEE 1 OR 2 VIEWS 03/27/2025 REASON FOR EXAM: POST OP PACU TECHNIQUE: Procedure Code: RADK Modality: DX Procedure: KNEE 1 OR 2 VIEWS Laterality: Left knee COMPARISON: August 29, 2024. FINDINGS: The patient is status post total knee replacement. There is good alignment. Postoperative soft tissue changes. RAD/Knee 1 or 2 Views IMPRESSION: Status post total knee replacement. There is good alignment. Postoperative soft tissue changes. Reading Location: [id number]
--- NOTE | 2025-03-27 13:37 | PCM.POST.ANE ---
Anesthesia: Postop Eval I Current Vital Signs Temperature: 97.8 F Pulse Rate: 71 Blood Pressure: 137/98 Respiratory Rate: 16 Pulse Ox: 100 Assessment Airway patent: Yes Spontaneous unlabored respirations: Yes nausea: No Vomiting: No Anesthesia Complication: No Fluid Hydration Crystalloid volume administer (ml): 600 Total IV fluid infused: 600 Progress Note Anesthesia document: Postop Eval 1 completed: Yes
[2025-03-27] MEDS: Cefazolin 2 GM in 0.9% Normal Saline (100mL Bag) 100 ML IV (16:43)
--- NOTE | 2025-03-27 20:39 | POSTOPAN2_ITS ---
Anesthesia Postop Eval I Sum Postop Eval Completion status Anesthesia document: Postop Eval 1 completed: Yes Anesthesia Postop Eval I Summary Anesthesia Postop Eval I Summary: Anesthesia Postop Eval I: Assessment Summary Airway patent Yes 03/27/25 13:37 ANODE CREW [email or web address] Spontaneous unlabored Yes 03/27/25 13:37 ANODE CREW [email or web address] respirations Mental status nausea No 03/27/25 13:37 ANODE CREW [email or web address] Vomiting No 03/27/25 13:37 ANODE CREW [email or web address] Anesthesia Postop Eval I: Fluid Summary Crystalloid volume administer 600 03/27/25 13:37 ANODE [email or web address] [email or web address] (ml) Colloids volume administered ( ml) Blood Product volume administered (ml) Total IV fluid infused 600 03/27/25 13:37 ANODE CREW [email or web address] Anesthesia Postop Eval I: Summary Notes Anesthesia Complication No 03/27/25 13:37 ANODE CREW [email or web address] Anesthesia Complication Comment: Post-operative progress note Anesthesia: Postop Eval II Evaluation Mental status: Awake and Calm Pain Level: 1 nausea: No Vomiting: No Complications Anesthesia Complication: No
--- NOTE | 2025-03-27 20:39 | PCM.POSTANE2 ---
Anesthesia Postop Eval I Sum Postop Eval Completion status Anesthesia document: Postop Eval 1 completed: Yes Anesthesia Postop Eval I Summary Anesthesia Postop Eval I Summary: Anesthesia Postop Eval I: Assessment Summary Airway patent Yes 03/27/25 13:37 NUCLEAR TEST [email or web address] Spontaneous unlabored Yes 03/27/25 13:37 NUCLEAR TEST [email or web address] respirations Mental status nausea No 03/27/25 13:37 NUCLEAR TEST [email or web address] Vomiting No 03/27/25 13:37 NUCLEAR TEST [email or web address] Anesthesia Postop Eval I: Fluid Summary Crystalloid volume administer 600 03/27/25 13:37 NUCLEAR TEST [email or web address] (ml) Colloids volume administered ( ml) Blood Product volume administered (ml) Total IV fluid infused 600 03/27/25 13:37 NUCLEAR TEST [email or web address] Anesthesia Postop Eval I: Summary Notes Anesthesia Complication No 03/27/25 13:37 NUCLEAR TEST [email or web address] Anesthesia Complication Comment: Post-operative progress note Anesthesia: Postop Eval II Evaluation Mental status: Awake and Calm Pain Level: 1 nausea: No Vomiting: No Complications Anesthesia Complication: No
== END 2025-03-27 17:58 | disposition home or self-care (01) ==
LOC: SDC 08:35 → AC 08:36
PROVIDERS: PCP Family Medicine; Referring Provider Orthopaedic Surgery; Visit Provider Orthopaedic Surgery
PROC: 0SRD0JZ Replacement of Left Knee Joint with Synthetic Substitute, Open Approach (ICD-10-PCS; CPT 27447; principal; 2025-03-27 10:15)
DX: M17.12 Unilateral primary osteoarthritis, left knee (principal); Z98.51 Tubal ligation status; Z96.651 Presence of right artificial knee joint; M25.562 Pain in left knee; Z01.818 Encounter for other preprocedural examination
CPT/HCPCS: 27447; 01402; 36415; 73560; 80048; 82962; 82985; 83036; 83735; 85610; 85730; 86850; 86900; 86901; 87081; 88304; 88305; 88311; 97162; C1776; J2405